=== PATIENT | female | born 1965 | race Caucasian/White ===

== ENCOUNTER 2023-02-24 07:15 | Outpatient (OUT) | payer BC, SELFPAY ==
--- NOTE | 2023-02-24 07:24 | MM_ITS ---
Patient: ADRIAN FRANCES Exam Date: 02/24/2023 : 1965 Gender:F Ordering : DR Hiwot Rich M.D. Admission #: [id number] Family : Order #: [id number] CLICK HERE TO VIEW EXAM RADIOLOGY REPORT PROCEDURE: MM TOMOSYNTHESIS SCREENING BI COMPARISON: MG MAMM SCREEN 3D STEPHY CAD, 01/21/2022. MAMMO POST BIOPSY RIGHT, 05/07/2020. MG MAMM SCREEN STEPHY W CAD, 04/27/2020. MG MAMM STEPHY SCRN W CAD DIG, 11/23/2013. INDICATIONS: Screening Calculator Name NCI Breast Cancer Risk Assessment Tool 5 Year Breast Cancer Risk 2.70% Lifetime Breast Cancer Risk 17.00% Personal Breast Cancer No Personal Ovarian Cancer No Treatments None Family Cancers Mother with breast cancer at age 64; Grandmother-maternal with breast cancer at age ~60. LOCATION: [facility] BREAST COMPOSITION: Scattered areas fibroglandular density. FINDINGS: DIAGNOSTIC CATEGORY 2--BENIGN FINDING: RIGHT BREAST: No significant suspicious finding. Stable small mass and adjacent biopsy marker clip within anterior lower-outer quadrant. Scattered benign-appearing calcifications are present. No significant change has occurred. LEFT BREAST: No significant suspicious finding. Scattered benign-appearing calcifications are present. No significant change has occurred. RECOMMENDATIONS: ROUTINE MAMMOGRAM AND CLINICAL EVALUATION IN 12 MONTHS. PLEASE NOTE: A NORMAL MAMMOGRAM DOES NOT EXCLUDE THE POSSIBILITY OF BREAST CANCER. A CLINICALLY SUSPICIOUS PALPABLE LUMP SHOULD BE BIOPSIED. Dictated by: Benjamin Malave M.D. on 02/25/2023 at 13:30 Approved by: Benjamin Malave M.D. on 02/25/2023 at 13:45
[2023-02-24 07:26] LABS: Basophils Percent Auto 0.6 % (0.2-2.0); Eosinophils Absolute Auto 0.1 10^3/uL (0.0-0.7); Eosinophils Percent Auto 2.5 % (0.9-7.0); Hematocrit 41.3 % (36.0-48.0); Hemoglobin 13.5 g/dL (12.0-16.0); Immature Granulocytes Abs Auto 0.01 10^3/uL (0.00-0.03); Immature Granulocytes Pct Auto 0.2 % (0.0-0.5); Lymphocytes Absolute Auto 1.5 10^3/uL (1.2-3.8); Lymphocytes Percent Auto 27.6 % (20.5-60.0); Mean Corpuscular HGB Conc 32.7 g/dL (29.9-35.2); Mean Corpuscular Hemoglobin 29.1 pg (26.7-34.0); Mean Platelet Volume 9.4 fL (9.5-13.5); Monocytes Absolute Auto 0.4 10^3/uL (0.3-0.8); Monocytes Percent Auto 7.4 % (1.7-12.0); Neutrophils Absolute Auto 3.3 10^3/uL (1.4-6.5); Neutrophils Percent Auto 61.7 % (43.0-75.0); Platelet Count 262 10^3/uL (150-450); Red Blood Count 4.64 10^6/uL (4.20-5.40); Red Cell Distribution Width 12.9 % (11.0-15.0); White Blood Count 5.3 10^3/uL (4.0-11.0)
[2023-02-24 07:45] LABS: Estimated Average Glucose 128 mg/dL; Glycohemoglobin A1C 6.1 % (4.5-6.2)
[2023-02-24 08:08] LABS: Alanine Aminotransferase 44 U/L (14-59); Albumin Level 3.4 g/dL (3.4-5.0); Alkaline Phosphatase 58 U/L (46-116); Anion Gap 8.5; Aspartate Amino Transferase 23 U/L (15-37); Bilirubin Total 0.3 mg/dL (0.2-1.0); Calcium 8.8 mg/dL (8.5-10.1); Carbon Dioxide 29.9 mmol/L (21.0-32.0); Chloride 104 mmol/L (98-107); Chol HDL Ratio 4.6; Cholesterol 194 mg/dL (<=200); Estimated GFR (African America >60 (>=60); Estimated GFR (Non-African Ame >60 (>=60); Globulin 3.4 g/dL; Glucose 133 mg/dL (74-106); HDL Cholesterol 42 mg/dL (40-60); Potassium 4.4 mmol/L (3.5-5.1); Sodium 138 mmol/L (136-145); Total Protein 6.8 g/dL (6.4-8.2); Triglycerides 196 mg/dL (<=150); VLDL CHOLESTEROL 39.2 mg/dL
== END 2023-02-24 07:16 | disposition home or self-care (01) ==
LOC: LAB 07:15
PROVIDERS: PCP Family Medicine; Visit Provider Family Medicine
DX: Z00.00 Encounter for general adult medical examination without abnormal findings (principal); Z12.31 Encounter for screening mammogram for malignant neoplasm of breast; Z80.3 Family history of malignant neoplasm of breast
CPT/HCPCS: 36415; 77063; 77067; 80053; 80061; 83036; 84443; 85025

== ENCOUNTER 2024-02-21 12:44 | Outpatient (OUT) | payer BC, SELFPAY ==
[2024-02-21] MEDS: ADACEL DIPH,PERTUSS(ACELL),TET VAC/PF 0.5 ML ADULT SYRINGE IM (12:49)
== END 2024-02-21 12:45 | disposition home or self-care (01) ==
LOC: VACCLI 12:45
PROVIDERS: PCP Family Medicine
DX: Z23 Encounter for immunization (principal)
CPT/HCPCS: 90715

== ENCOUNTER 2024-03-03 07:14 | Outpatient (OUT) | payer BC, SELFPAY ==
--- OUTSIDE RECORDS SUMMARY | 2024-03-03 07:17 | XMS_ITS | CCD ---
Author Organization [facility] Care Team Providers Care Information Security Director Name Role Phone DR BENJAMIN MALAVE Consulting Unavailable FISHER, DR HIWOT Licona Admitting Unavailable FISHER, DR HIWOT Licona Primary Care Unavailable FISHER, DR HIWOT Licona Attending Unavailable FISHER, DR HIWOT Licona Consulting Unavailable SHAILESH, KAROL Admitting Unavailable SHAILESH, KAROL Consulting Unavailable SHAILESHKAROL BARNES Attending Unavailable FISHER, DR HIWOT Licona Primary Care Unavailable RENU MARIE Admitting Unavailable RENU MARIE Consulting Unavailable RENU MARIE Attending Unavailable PHILLIP, DR HIWOT Licona Primary Care Unavailable SHAILESH, KAROL Admitting Unavailable SHAILESH, KAROL Consulting Unavailable SHAILESH, KAROL Attending Unavailable FISHER, DR HIWOT Licona Primary Care Unavailable Hiwot Fisher Unavailable Deb Starks Unavailable [phone] MD Hiwot Fisher Primary Care Provider [phone] MD Anatoliy Soto Attending Provider MD Hiwot Fisher Primary Care Provider [phone] MD Anatoliy Soto Attending Provider [phone] Allergies Allergy Classification Reported Allergen(s) Allergy Type Date of Onset Reaction(s) Facility (1 source) Latex Drug allergy (disorder) 12-04-[address] [facility] Repository (2 sources) Erythromycin Drug Allergy 10-28-19 14 Unknown [employer] Other (3 sources) erythromycin base Allergy to substance 01-27-20 24 [facility] (3 sources) band aid adhesive Propensity to adverse reactions 11-06-19 21 Redness of Skin [facility] Medications Current Medications Medication Drug Class(es) Dates Sig (Normalized) Sig (Original) [id number] 200 actuat albuterol 0.09 mg/actuat metered dose inhaler (3 sources) beta2-Adrenergic Agonist Start: 09-08-2019 Albuterol Sulfate (Ventolin Hfa) 90 mcg/actuation HFA aerosol inhaler Active 2 INH INHALATION every 6 to 8 hours September 08, 2019 1:00am 24 hr buPROPion hydrochloride 300 mg extended release oral tablet (6 sources) Aminoketone Start: 01-27-2024 take 300 mg by mouth once daily in the morning Bupropion Hcl Active 300 MG PO Every morning January 27, 2024 12:00am Start: 11-08-2020 take 150 mg by mouth once daily in the morning Bupropion Hcl Active 150 MG PO Every morning November 08, 2020 12:00am doxycycline hyclate 100 mg oral capsule (1 source) Tetracycline-class Drug Start: 02-28-2024 take 100 mg by mouth twice daily Doxycycline Hyclate Active 100 MG PO Twice daily 14 February 28, 2024 12:00am Fenofibrate (17 sources) Peroxisome Proliferator Receptor alpha Agonist Start: 02-25-2024 take 1 tablet by mouth once daily Fenofibrate Active 0 .ROUTE .COMPLEX February 25, 2024 9:41am TAKE 1 TABLET BY MOUTH DAILY Start: 12-24-2023 End: 02-25-2024 take 1 tablet by mouth once daily Fenofibrate Discontinued 0 .ROUTE .COMPLEX December 24, 2023 10:34am February 25, 2024 9:41am TAKE 1 TABLET BY MOUTH DAILY Start: 12-24-2023 take 1 tablet by rafiq th once daily Fenofibrate Active 0 .ROUTE .COMPLEX December 24, 2023 10:34am TAKE 1 TABLET BY MOUTH DAILY Start: 09-08-2019 End: 12-24-2023 take 160 mg by mouth once daily Fenofibrate Discontinu ed 160 MG PO Daily October 21, 2023 3:18pm December 24, 2023 10:34am FLUoxetine 20 mg oral capsule (13 sources) Serotonin Reuptake Inhibitor Start: 11-08-2020 take 60 mg by mouth once daily Fluoxetine Active 60 MG PO Daily November 08, 2020 12:00am Start: 09-08-2019 End: 11-08-2020 take 1 capsule by mouth once daily Fluoxetine (Prozac) 40 mg Capsule Discontinued 40 MG PO Daily September 08, 2019 1:00am November 08, 2020 10:56am take 1 capsule by mo [facility] every twenty-four hours PROzac 20 MG 1 capsule in the morning Orally Once a day Active Lisinopril (17 sources) Angiotensin Converting Enzyme Inhibitor Start: 02-25-2024 take 1 tablet by mouth once daily Lisinopril Active 0 .ROUTE .COMPLEX February 25, 2024 9:41am TAKE 1 TABLET BY MOUTH DAILY Start: 12-24-2023 End: 02-25-2024 take 1 tablet by mouth once daily Lisinopril Discontinued 0 .ROUTE .COMPLEX December 24, 2023 10:34am February 25, 2024 9:41am TAKE 1 TABLET BY MOUTH DAILY Start: 12-24-2023 take 1 tablet by rafiq th once daily Lisinopril Active 0 .ROUTE .COMPLEX December 24, 2023 10:34am TAKE 1 TABLET BY MOUTH DAILY Start: 09-08-2019 End: 12-24-2023 take 40 mg by mouth once daily Lisinopril Discontinued 40 MG PO Daily October 21, 2023 3:18pm December 24, 2023 10:34am take 2 tablets by mo [facility] every twenty-four hours Lisinopril 20 MG 2 tablets Orally daily for 90 days Active 24 hr metoprolol succinate 50 mg extended release oral tablet (15 sources) beta-Adrenergic Marichuy Start: 02-25-2024 take 1 tablet by mouth once daily Metoprolol Succinate Active 0 .ROUTE .COMPLEX February 25, 2024 9:41am TAKE 1 TABLET BY MOUTH DAILY Start: 09-08-2019 End: 02-25-2024 take 50 mg by mouth once daily Metoprolol Succinate Di scontinued 50 MG PO Daily October 04, 2023 4:41pm February 25, 2024 9:41am take 1 tablet by rafiq th once daily Metoprolol Succinate 50 MG 1 Tablet orally Daily Active Multivitamin preparation (9 sources) Start: 02-22-2024 take 1 tablet by mouth once daily Multivitamin Active 1 TAB PO Daily February 22, 2024 12:00am Multivitamin Act gracia omeprazole 20 mg delayed release oral capsule (11 sources) Proton Pump Inhibitor Start: 11-02-2022 take 1 capsule by mouth once daily Omeprazole 20 MG 1 capsule 30 minutes before morning meal Orally Once a day for 90 days Oct, Active take 2 tablets by mouth once danielle ly PriLOSEC OTC 20 MG 2 tablets Orally Once a day Active Omeprazole Magnesium (Prilosec Otc) 20 mg Tablet,Delayed Release (Dr/Ec) (3 sources) Start: 09-08-2019 take 1 tablet by mouth once daily Omeprazole Magnesium (Prilosec Otc) 20 mg Tablet,Delayed Release (Dr/Ec) Active 20 MG PO Daily September 08, 2019 1:00am predniSONE 20 mg oral tablet (10 sources) Start: 08-06-2022 take 2 tablets by mouth every twenty-four hours predniSONE 20 MG 2 tablets Orally Once a day for 5 days Jul, Active Start: 09-08-2019 End: 11-05-2020 take 50 mg by mouth once daily Prednisone Discontinued 50 MG PO Daily 5 5 September 08, 2019 1:00am November 05, 2020 2:37pm {20 (nirmatrelvir 150 MG Oral Tablet) / 10 (ritonavir 100 MG Oral Tablet) } Pack [Paxlovid 5-Day] (2 sources) Start: 03-31-2023 take 3 tablets by mouth every twelve hours Paxlovid (300/100) 20 x 150 MG & 10 x 100MG 3 tablets Orally Twice a day for 5 days Mar, Active Completed/Discontinued Medications Medication Drug Class(es) Dates Sig (Normalized) Sig (Original) amoxicillin 875 mg / clavulanate 125 mg oral tablet (13 sources) Penicillin-class Antibacterial Start: 01-27-2024 End: 02-28-2024 take 1 tablet by mouth twice daily Amoxicillin-Pot Clavulanate Discontinued 1 TAB PO Twice daily January 27, 2024 12:00am February 28, 2024 5:16pm Start: 08-06-2022 take 1 tablet by rafiq th every twelve hours Amoxicillin-Pot Clavulanate 875-125 MG 1 tablet Orally every 12 hrs for 10 day(s) Jul, Not-Taking Start: 09-08-2019 End: 11-05-2020 take 1 tablet by mouth twice daily Amoxicillin-Pot Clavulanate (Augmentin) 875-125 mg tablet Discontinued 1 TAB PO Twice daily September 08, 2019 1:00am November 05, 2020 2:36pm ARIPiprazole 5 mg oral tablet (3 sources) Atypical Antipsychotic Start: 11-08-2020 End: 01-27-2024 take 5 mg by mouth once daily at bedtime Aripiprazole Discontinued 5 MG PO Daily at bedtime 30 November 08, 2020 12:00am January 27, 2024 2:19pm brexpiprazole 2 mg oral tablet (3 sources) Atypical Antipsychotic Start: 11-05-2020 End: 11-08-2020 take 1 tablet by mouth once daily Brexpiprazole (Rexulti) 2 mg Tablet Discontinued 2 MG PO Daily November 05, 2020 12:00am November 08, 2020 10:56am DULoxetine 60 mg delayed release oral capsule (12 sources) Serotonin and Norepinephrine Reuptake Inhibitor Start: 02-22-2024 End: 02-28-2024 take 1 capsule by mouth once daily Duloxetine (Cymbalta) 60 mg capsule,delayed release(DR/EC) Discontinued 60 MG PO Daily February 22, 2024 12:00am February 28, 2024 5:16pm FreeTextSi capsule Orally Once a day; Note: Source Status: Taking; Provider: Phillip Mi ( ) Start: 09-08-2019 End: 11-08-2020 take 1 capsule by mouth once daily Duloxetine (Cymbalta) 60 mg Capsule,Delayed Release(Dr/Ec) Discontinued 60 MG PO Daily September 08, 2019 1:00am November 08, 2020 10:56am 12 hr guaiFENesin 600 mg extended release oral tablet (7 sources) Start: 09-15-2019 take 1 tablet by mouth every twelve hours Mucinex 600 MG 1 tablet as needed Orally every 12 hrs for 10 days Aug, Not-Taking hydrOXYzine pamoate 50 mg oral capsule (3 sources) Antihistamine Start: 11-08-2020 End: 01-27-2024 take 50 mg by mouth every six hours Hydroxyzine Pamoate Discontinued 50 MG PO Q6H 40 November 08, 2020 12:00am January 27, 2024 2:21pm Methylprednisolone (6 sources) Corticosteroid Start: 01-27-2024 End: 02-28-2024 Methylprednisolone Discontinued 0 PO per package directions January 27, 2024 12:00am February 28, 2024 5:16pm PO PER PKG DIR for 6 days Start: 01-27-2024 Methylpredniso lone Active 0 PO per package directions January 27, 2024 12:00am PO PER PKG DIR for 6 days Start: 09-08-2019 End: 11-05-2020 Methylprednisolone Discontin ued 0 .ROUTE .COMPLEX September 08, 2019 1:00am November 05, 2020 2:37pm on day 3 as of 09/08/2019 traZODone hydrochloride 50 mg oral tablet (3 sources) Serotonin Reuptake Inhibitor Start: 11-08-2020 End: 01-27-2024 take 50 mg by mouth once daily at bedtime Trazodone Discontinued 50 MG PO Daily at bedtime November 08, 2020 12:00am January 27, 2024 2:20pm Problems Active Problems Problem Classification Problem Date Documented Date Episodic/Chronic Asthma (20 sources) Exacerbation of moderate persistent asthma; Translations: [Moderate persistent asthma with (acute) exacerbation] Chronic Esophageal disorders (4 sources) Gastroesophageal reflux disease without esophagitis; Translations: [Gastro-esophageal reflux disease without esophagitis] Chronic Mood disorders (3 sources) Major depressive disorder; Translations: [Major depressive disorder, single episode, unspecified] 11-05-2020 Chronic Nonmalignant breast conditions (3 sources) Breast lump; Translations: [Unspecified lump in the right breast, unspecified quadrant] 05-07-2020 Episodic Other screening for suspected conditions (not mental disorders or infectious disease) (5 sources) Encounter for screening mammogram for malignant neoplasm of breast; Translations: [Patient encounter status] Onset: 01-26-2022 02-24-2024 Episodic Other upper respiratory infections (14 sources) Sinusitis; Translations: [Chronic sinusitis, unspecified] Chronic Other upper respiratory infections (3 sources) Upper respiratory infection; Translations: [Acute upper respiratory infection, unspecified] 09-08-2019 Episodic Otitis media and related conditions (1 source) Unspecified nonsuppurative otitis media, bilateral Episodic Residual codes; unclassified (2 sources) Family history of malignant neoplasm of breast; Translations: [Family history of malignant neoplasm of breast] Onset: 01-26-2022 02-23-2024 Episodic Residual codes; unclassified (1 source) Family history of breast cancer; Translations: [Family history of malignant neoplasm of breast] 02-24-2024 Episodic Skin and subcutaneous tissue infections (1 source) Cellulitis, unspecified; Translations: [Cellulitis and abscess of unspecified sites] 02-28-2024 Episodic Unclassified (3 sources) CONTACT W/AND (SUSP) EXPOS COVID-19; Translations: [CONTACT W/AND (SUSP) EXPOS COVID-19] Onset: 07-24-2021 Past or Other Problems Problem Classification Problem Date Documented Da te Episodic/Chronic Immunizations and screening for infectious disease (4 sources) Encounter for immunization; Translations: [ENCOUNTER FOR IMMUNIZATION] Onset: 05-14-2021 Episodic Unclassified (1 source) CONTACT W/AND (SUSP) EXPOS COVID-19; Translations: [CONTACT W/AND (SUSP) EXPOS COVID-19] Onset: 07-21-2021 Viral infection (2 sources) COVID-19 Results Test Name Value Interpretation Reference Range Facility CBC AUTO DIFFon 01-21-2022 BASO # 0.0 103/ul Normal 0.0-0.1 [facility] Comment on above: Performed By: #### C BC ####[facility] [id number] [place], [place] [address]Dr. Roz Barnhart Basophils/100 WBC (Bld) 0.8 % Normal 0.2-2.[address] [facility] Comment on above: Performed By: #### C BC ####[facility] [address] [place], [place] [address]Dr. Roz Barnhart EO # 0.1 103/ul Normal 0.0-0.[address] [facility] Comment on above: Performed By: #### C BC ####[facility] [address] [place], [place] [address]Dr. Roz Barnhart Eosinophils/100 WBC (Bld) 2.5 % Normal 0.9-7.[address] [facility] Comment on above: Performed By: #### C BC ####[facility] [address] [place], [place] [address]Dr. Roz Barnhart Erythrocyte distribution width (RBC) [Ratio] 12.2 % Normal 11.0-15.[address] [facility] Comment on above: Performed By: #### C BC ####[facility] [address] [place] [address]Dr. Roz Barnhart Hematocrit (Bld) [Volume fraction] 43.2 % Normal 36.0-48.0 [facility] Comment on above: Performed By: #### C BC ####[facility] [address] [place] [address]Dr. Roz Obey Hemoglobin (Bld) [Mass/Vol] 13.9 g/dL Normal 12.0-16.0 [facility] Comment on above: Performed By: #### C BC ####[facility] [address] [place], [place] [address]Dr. Piamayi Barnhart IG # 0.01 10e3/ul Normal 0.00-0.03 [facility] Comment on above: Performed By: #### C BC ####[facility] [address] [place], [place] [address]Dr. Roz Barnhart IG % 0.2 % Normal 0.0-0.5 [facility] Comment on above: Performed By: #### C BC ####[facility] [address] [place], [place] [address]Dr. Piamayi Barnhart LYMPH # 1.5 103/ul Normal 1.2-3.[address] [facility] Comment on above: Performed By: #### C BC ####[facility] [address] [place], [place] [address]Dr. Roz Barnhart Lymphocytes/100 WBC (Bld) 29.8 % Normal 20.5-60.[address] [facility] Comment on above: Performed By: #### C BC ####[facility] [address] [place], [place] [address]Dr. Roz Barnhart MANUAL DIFF REQ NO Normal [facility] Comment on above: Performed By: #### C BC ####[facility] [address] [place], [place] [address]Dr. Roz Barnhart MCH (RBC) [Entitic mass] 29.1 pg Normal 26.7-34.[address] [facility] Comment on above: Performed By: #### C BC ####[facility] [address] [place] [id number]. Roz Obey MCHC (RBC) [Mass/Vol] 32.2 g/dL Normal 29.9-35.[address] [facility] Comment on above: Performed By: #### C BC ####[facility] [address] [place] [id number]. Roz Barnhart MCV (RBC) [Entitic vol] 90.6 fL Normal 81.0-99.[address] [facility] Comment on above: Performed By: #### C BC ####[facility] [address] [place], [place] [address]Dr. Roz Barnhart MONO # 0.4 103/ul Normal 0.3-0.[address] [facility] Comment on above: Performed By: #### C BC ####[facility] [address] [place], [place] [address]Dr. Roz Barnhart Monocytes/100 WBC (Bld) 6.8 % Normal 1.7-12.[address] [facility] Comment on above: Performed By: #### C BC ####[facility] [address] [place], [place] [address]Dr. Roz Barnhart NEUT # 3.1 103/ul Normal 1.4-6.[address] [facility] Comment on above: Performed By: #### C BC ####[facility] [address] [place], [place] [address]Dr. Roz Barnhart Neutrophils/100 WBC (Bld) 59.9 % Normal 43.0-75.[address] [facility] Comment on above: Performed By: #### C BC ####[facility] [address] [place], [place] [address]Dr. Roz Barnhart Platelet mean volume (Bld) [Entitic vol] 9.8 fL Normal 9.5-13.[address] [facility] Comment on above: Performed By: #### C BC ####[facility] [address] [place], [place] [address]Dr. Roz Barnhart PLT 321 103/ul Normal 150-[address] [facility] Comment on above: Performed By: #### C BC ####[facility] [address] [place], [place] [address]UmKenney Barnhart RBC 4.77 106/ul Normal 4.20-5.40 [facility] Comment on above: Performed By: #### C BC ####[facility] [address] [place], [place] [address]IgKenney Barnhart WBC 5.1 103/ul Normal 4.0-11.0 [facility] Comment on above: Performed By: #### C BC ####[facility] [address] [place], [place] [address]Dr. Roz Barnhart GLYCOHEMOGLOBIN A1Con 2021 ADA RECOMMENDATION SEE BELOW Normal [facility] Comment on above: Result Comment: ADA RECOMMENDED LIMIT 4.0 - 6.0 ADA THERAPEUTIC TARGET < 7.0 ACTION SUGGESTED > 7.0 Performed By: #### A 1C #### [facility] [address] [address] [address] Roz Barnhart Glucose [Mass/Vol] 120 mg/dL Critically high 74-106 [facility] Comment on above: Performed By: #### A 1C #### [facility] [address] [address] [address] Roz Barnhart Performed By: #### C MP, LIPID, TSH #### [facility] [address] [address] [address] Roz Barnhart HbA1c (Bld) [Mass fraction] 5.8 % Normal 4.5-6.2 [facility] Comment on above: Performed By: #### A 1C #### [facility] [address] [address] [address] Roz Barnhart LIPID PROFILEon 01-21-2022 CHOL-HDL RATIO NORM SEE BELOW Normal [facility] Comment on above: Result Comment: 3.3 - 4.4 LOW RISK 4.4 - 7.1 AVERAGE RISK 7.1 - 11.0 MODERATE RISK >11.0 HIGH RISK Performed By: #### C MP, LIPID, TSH #### [facility] [address] [address] [address] Roz Barnhart Cholesterol [Mass/Vol] 230 mg/dL Critically high <=200 [facility] Comment on above: Performed By: #### C MP, LIPID, TSH #### [facility] [address] [address] [address] Roz Barnhart Cholesterol in HDL [Mass/Vol] 40 mg/dL Normal 40-60 [facility] Comment on above: Performed By: #### C MP, LIPID, TSH #### [facility] [address] [address] [address] Roz Barnhart Cholesterol in LDL [Mass/Vol] 148.4 mg/dL Normal [facility] Comment on above: Performed By: #### C MP, LIPID, TSH #### [facility] [address] [address] [address] Roz Barnhart Cholesterol.total/Ch olesterol in HDL [Mass ratio] 5.8 {ratio} Normal [facility] Comment on above: Performed By: #### C MP, LIPID, TSH #### [facility] [address] [address] [address] Roz Barnhart HDL NORMAL > or = 60 mg/dl - LO W CARDIOVASCULAR RISK <40 mg/dl - HIGH CARDIOVASCULAR RISK Normal [facility] Comment on above: Performed By: #### C MP, LIPID, TSH #### [facility] [address] [address] [address] Roz Barnhart LDL CALC NORMAL SEE BELOW Normal [facility] Comment on above: Result Comment: <100 mg/dl OPTIMAL 100 - 129 mg/dl NEAR OR ABOVE OPTIMAL 130 - 159 mg/dl BORDERLINE HIGH 160 - 189 mg/dl HIGH >190 mg/dl VERY HIGH Performed By: #### C MP, LIPID, TSH #### [facility] [address] [address] [address] Roz Barnhart Triglyceride [Mass/Vol] 208 mg/dL Critically high <=[address] [facility] Comment on above: Performed By: #### C MP, LIPID, TSH #### [facility] [address] [address] [address] Roz Barnhart VLDL CALC 41.6 mg/dL Normal [facility] Comment on above: Performed By: #### C MP, LIPID, TSH #### [facility] [address] [address] [address] Roz Barnhart MG MAMM SCREEN 3D STEPHY CADon 01-21-2022 MG MAMM SCREEN 3D STEPHY CAD Patient: EVELIA FRANCES Exam Date: 01/21/2022 : 1965 Gender:F Ordering : DR HIWOT FISHER M.D. Admission #: [id number] Family : Order #: [id number] CLICK HERE TO VIEW EXAM RADIOLOGY REPORT PROCEDURE: MAMMOGRAM SCREENING 3D BILATERAL CAD COMPARISON: MAMMO POST BIOPSY RIGHT, 05/07/2020. MG MAMM SCREEN STEPHY W CAD, 04/27/2020. INDICATIONS: Screening mammography Calculator Name NCI Breast Cancer Risk Assessment Tool 5 Year Breast Cancer Risk 2.60% Lifetime Breast Cancer Risk 17.30% Personal Breast Cancer No Personal Ovarian Cancer No Treatments None Family Cancers Mother with breast cancer at age 64; Grandmother-maternal with breast cancer at age 60. LOCATION: [facility] BREAST COMPOSITION: Scattered areas fibroglandular density. FINDINGS: DIAGNOSTIC CATEGORY 2--BENIGN FINDING: RIGHT BREAST: No significant suspicious finding. Stable benign-appearing nodules are present. Scattered benign-appearing calcifications are present. No suspicious change has occurred. LEFT BREAST: No significant suspicious finding. Scattered benign-appearing calcifications are present. No significant change has occurred. RECOMMENDATIONS: ROUTINE MAMMOGRAM AND CLINICAL EVALUATION IN 12 MONTHS. PLEASE NOTE: A NORMAL MAMMOGRAM DOES NOT EXCLUDE THE POSSIBILITY OF BREAST CANCER. A CLINICALLY SUSPICIOUS PALPABLE LUMP SHOULD BE BIOPSIED. Dictated by: Benjamin Malave M.D. on 01/22/2022 at 14:20 Approved by: Benjamin Malave M.D. on 01/22/2022 at 14:[address] [facility] PROF 14(COMP METB)on 022 Albumin [Mass/Vol] 3.8 g/dL Normal 3.4-5.0 [facility] Comment on above: Performed By: #### C MP, LIPID, TSH #### [facility] [address] [place], [place] [address] Dr. Roz Barnhart Albumin/Globulin [Mass ratio] 1.1 {ratio} Normal [facility] Comment on above: Performed By: #### C MP, LIPID, TSH #### [facility] [address] [address] [address] Roz Barnhart ALP [Catalytic activity/Vol] 57 U/L Normal 46-116 [facility] Comment on above: Performed By: #### C MP, LIPID, TSH #### [facility] [address] [address] [address] Roz Barnhart ALT [Catalytic activity/Vol] 42 U/L Normal 14-59 [facility] Comment on above: Performed By: #### C MP, LIPID, TSH #### [facility] [address] [address] [address] Roz Barnhart Anion gap [Moles/Vol] 13.6 mmol/L Normal [facility] Comment on above: Performed By: #### C MP, LIPID, TSH #### [facility] [address] [address] [address] Roz Barnhart AST [Catalytic activity/Vol] 21 U/L Normal 15-37 [facility] Comment on above: Performed By: #### C MP, LIPID, TSH #### [facility] [address] [address] [address] Roz Barnhart Bilirubin [Mass/Vol] 0.4 mg/dL Normal 0.2-1.0 [facility] Comment on above: Performed By: #### C MP, LIPID, TSH #### [facility] [address] [address] [address] Roz Barnhart Calcium [Mass/Vol] 9.2 mg/dL Normal 8.5-10.1 [facility] Comment on above: Performed By: #### C MP, LIPID, TSH #### [facility] [address] [address] [address] Roz Barnhart Chloride [Moles/Vol] 104 mmol/L Normal 98-107 [facility] Comment on above: Performed By: #### C MP, LIPID, TSH #### [facility] [address] [address] [address] Roz Barnhart CO2 [Moles/Vol] 26.7 mmol/L Normal 21.0-32.0 [facility] Comment on above: Performed By: #### C MP, LIPID, TSH #### [facility] [address] [address] [address] Roz Barnhart Creatinine [Mass/Vol] 0.67 mg/dL Normal 0.55-1.02 [facility] Comment on above: Performed By: #### C MP, LIPID, TSH #### [facility] [address] [place] [address] Dr. Roz Barnhart EGFR-AF MAURITIAN >60 Normal >=60 [facility] Comment on above: Performed By: #### C MP, LIPID, TSH #### [facility] [address] [place] [address] Dr. Roz Barnhart EGFR-NON AF MAURITIAN >60 Normal >=60 [facility] Comment on above: Performed By: #### C MP, LIPID, TSH #### [facility] [address] [place] [address] Dr. Roz Barnhart Globulin (S) [Mass/Vol] 3.4 g/dL Normal [facility] Comment on above: Performed By: #### C MP, LIPID, TSH #### [facility] [address] [place] [address] Dr. Roz Barnhart Potassium [Moles/Vol] 4.3 mmol/L Normal 3.5-5.1 [facility] Comment on above: Performed By: #### C MP, LIPID, TSH #### [facility] [address] [place] [address] Dr. Roz Barnhart Protein [Mass/Vol] 7.2 g/dL Normal 6.4-8.2 [facility] Comment on above: Performed By: #### C MP, LIPID, TSH #### [facility] [address] [place] [address] Dr. Roz Barnhart Sodium [Moles/Vol] 140 mmol/L Normal 136-145 [facility] Comment on above: Performed By: #### C MP, LIPID, TSH #### [facility] [address] [place] [address] Dr. Roz Barnhart Urea nitrogen [Mass/Vol] 11.0 mg/dL Normal 7.0-18.0 [facility] Comment on above: Performed By: #### C MP, LIPID, TSH #### [facility] [address] [address] [address] Roz Barnhart Urea nitrogen/Creatinine [Mass ratio] 16.4 mg/mg Normal [facility] Comment on above: Performed By: #### C MP, LIPID, TSH #### [facility] [address] [address] [address] Roz Barnhart TSHon 01-21-2022 TSH 1.738 uIU/mL Normal 0.358-3.740 [facility] Comment on above: Performed By: #### C MP, LIPID, TSH #### [facility] [address] [place] [address] Dr. Roz Barnhart Covid-19 PCR ([facility])on SARS-CoV-2 (COVID-19) RNA MARICRUZ+probe Ql (Unsp spec) Not detected Normal NOT DETECTED [facility] Comment on above: Result Comment: This test is not yet approved or cleared by the [place] FDA. When there are no FDA-approved or cleared tests available, and other criteria are met, FDA can make tests available under an emergency access mechanism called an Emergency Use Authorization (EUA). The EUA for this test is supported by the [employer] of Health and Human Service's (HHS's) declaration that circumstances exist to justify the emergency use of in vitro diagnostics for the detection and/or diagnosis of the virus that causes COVID-19. This EUA will remain in effect (meaning this test can be used) for the duration of the COVID-19 declaration justifying emergency of IVDs, unless it is terminated or revoked by FDA (after which the test may no longer be used). When diagnostic testing is negative, the possibility of a false negative should be considered in the context of a patient's recent exposures and the presence of clinical signs and symptoms consistent with SARS-CoV-2. Performed By: #### C VDTBH #### [facility] [address] [place] [address] Dr. Roz Barnhart QUANTIFERON TB GOLD PLUS (NO N-INC)on 05-10-2021 Comment Incubation performed. Normal [facility] Comment on above: Performed By: #### Q NTTBG #### [facility] [address] [place] [address] Dr. Roz Barnhart Criteria Comment Normal [facility] Comment on above: Result Comment: The QuantiFERON-TB Gold Plus result is determined by subtracting the Nil value from either TB antigen (Ag) tube. The mitogen tube serves as a control for the test. Performed By: #### Q NTTBG #### [facility] [address] [place] [address] Dr. Roz Barnhart Mitogen Value >10.00 Normal [facility] Comment on above: Performed By: #### Q NTTBG #### [facility] [address] [place] [address] Dr. Roz Barnhart Nill Value 0.00 IU/mL Normal [facility] Comment on above: Performed By: #### Q NTTBG #### [facility] [address] [place] [address] Dr. Roz Barnhart Quantiferon Gold Plus Negative Normal Negative [facility] Comment on above: Result Comment: Chem iluminescence immunoassay methodology Performed By: #### Q NTTBG #### [facility] [address] [place] [address] Dr. Roz Barnhart TB1 Ag Value 0.01 IU/mL Normal [facility] Comment on above: Performed By: #### Q NTTBG #### [facility] [address] [place] [address] Dr. Roz Barnhart TB2 Ag Value 0.01 IU/mL Normal [facility] Comment on above: Performed By: #### Q NTTBG #### [facility] [address] [place] [address] Dr. Roz Barnhart HEPATITIS B SURFACE ANTIBODY , QUANTon 05-07-2021 Hepatitis B Surf AB Quant <3.1 Critically low Immunity>9.9 [facility] Comment on above: Result Comment: Stat us of Immunity Anti-HBs Level Inconsistent with Immunity 0.0 - 9.9 Consistent with Immunity >9.9 Performed By: #### H EPBSRF #### [facility] [address] [place] [address] Dr. Roz Barnhart MMR IMMUNITYon 05-07-2021 Mumps Abs, IgG 11.8 AU/mL Normal Immune >10.9 [facility] Comment on above: Result Comment: Nega tive <9.0 Equivocal 9.0 - 10.9 Positive >10.9 A positive result generally indicates past exposure to Mumps virus or previous vaccination. Performed By: #### M MRIMMU #### [facility] [address] [place] [address] Dr. Roz Barnhart Rubella Antibodies, IgG 8.56 index Normal Immune >0.99 [facility] Comment on above: Result Comment: Non- immune <0.90 Equivocal 0.90 - 0.99 Immune >0.99 Performed By: #### M MRIMMU #### [facility] [address] [place] [address] Dr. Roz Barnhart Rubeola Ab, IgG >300.0 Normal Immune >16.4 [facility] Comment on above: Result Comment: Nega tive <13.5 Equivocal 13.5 - 16.4 Positive >16.4 Presence of antibodies to Rubeola is presumptive evidence of immunity except when acute infection is suspected. Performed By: #### M MRIMMU #### [facility] [address] [place] [address] Dr. Roz Barnhart VARICELLA IGG ABon Varicella Zoster IgG >4000 Normal Immune >[address] [facility] Comment on above: Result Comment: Nega tive <135 Equivocal 135 - 165 Positive >165 A positive result generally indicates exposure to the pathogen or administration of specific immunoglobulins, but it is not indication of active infection or stage of disease. Performed By: #### V ARCEL #### [facility] [address] [place] [address] Dr. Roz Barnhart XR thoracic spine 3V*on 03-19 XR thoracic spine 3V* [facility] [place] [address] [place] [address] XRay Report Signed Patient: Evelia Frances MR#: [id number] : 1965 Acct:[id number] Age/Sex: 56 / F ADM Date: 04/02/21 Loc: XD Room: Type: [facility] Attending Dr: Hiwot Fisher MD Ordering Provider: Hiwot Fisher MD Date of Service: 04/02/21 XR/XR thoracic spine 3V*: M54.9 Copies to: Hiwot Fisher MD XR thoracic spine 3V* 04/02/2021 12:05 PM SIGNS AND SYMPTOMS: Lower thoracic pain PROTOCOLS: Frontal and lateral radiograph of the thoracic spine COMPARISON: None FINDINGS: The bones are in anatomic alignment with preservation of vertebral body heights. There is anterior and lateral osteophyte formation throughout the mid and lower thoracic spine. There is accompanying mild disc height loss. No evidence of fracture or bony destructive lesion. XR/XR thoracic spine 3V* IMPRESSION: No fracture or subluxation. Mild degenerative changes are noted in the mid and lower thoracic spine. Impression dictated by: Jose Manuel Andino M.D.04/02/2021 1:50 PM Dictation Location: [address] [address] Transcribed By: [facility] 04/02/21 1350 Dictated By: Jose Manuel Andino II, MD 04/02/21 1349 Signed By: 04/02/21 1350 [facility] EBS A1C with Estimated Ave Jeffy franco 02-24-2021 Glucose [Mass/Vol] 126 mg/dL [facility] Comment on above: Result Comment: PERF ORMED BY: [place] [address] PATHOLOGIST LUMBER LOADER NICKOLAS ARTEAGA M.D. Performed By: #### F SH #### [place] [address] [place] #### EST, #### [facility] , HbA1c (Bld) [Mass fraction] 6.0 % High 4.3-5.6 [facility] Comment on above: Result Comment: Incr eased risk for diabetes: 5.7 - 6.4 diabetes: >6.4 glycemic control for adults with diabetes: <7.0 Performed By: #### F SH #### [address] #### EST, LH #### [facility] , Employee Comp Metabolic Pane teresita 02-24-2021 Albumin [Mass/Vol] 3.7 g/dL Normal 3.2-5.5 [facility] Comment on above: Performed By: #### F SH #### [address] #### EST, LH #### [facility] , Albumin/Globulin [Mass ratio] 1.4 {ratio} Normal [facility] Comment on above: Performed By: #### F SH #### [place] [address] [place] #### EST, LH #### [facility] , ALP [Catalytic activity/Vol] 62 U/L Normal 32-92 [facility] Comment on above: Performed By: #### F SH #### [place] [address] [place] #### EST, LH #### [facility] , ALT [Catalytic activity/Vol] 29 U/L Normal 10-60 [facility] Comment on above: Performed By: #### F SH #### [place] [address] [place] #### EST, LH #### [facility] , AST [Catalytic activity/Vol] 18 U/L Normal 10-42 [facility] Comment on above: Performed By: #### F SH #### [place] [address] [place] #### EST, LH #### [facility] , Bilirubin [Mass/Vol] 0.5 mg/dL Normal 0.3-1.2 [facility] Comment on above: Performed By: #### F SH #### [facility] [address] [place] [address] [place] #### EST, LH #### [facility] , Calcium [Mass/Vol] 9.2 mg/dL Normal 8.2-10.2 [facility] Comment on above: Performed By: #### F SH #### [facility] [address] [place] [address] [place] #### EST, LH #### [facility] , Chloride [Moles/Vol] 107 mmol/L Normal 95-114 [facility] Comment on above: Performed By: #### F SH #### [facility] [address] [place] [address] [place] #### EST, LH #### [facility] , CO2 [Moles/Vol] 24.0 mmol/L Normal 22.0-30.0 [facility] Comment on above: Performed By: #### F SH #### [facility] [address] [place] [address] [place] #### EST, LH #### [facility] , Creatinine [Mass/Vol] 0.52 mg/dL Normal 0.44-1.03 [facility] Comment on above: Performed By: #### F SH #### [facility] [address] [place] [address] [place] #### EST, LH #### [facility] , Creatinine Clr Calc Pharmacy 178.44 [facility] Comment on above: Performed By: #### F SH #### [facility] [address] [place] [address] [place] #### EST, LH #### [facility] , Estimated GFR ( Allie > 60 Normal [facility] Comment on above: Result Comment: GFR estimated reference range: According to KDOQI guidelines, <60 ml/min/1.73m2 is sufficient to diagnose a patient with chronic kidney disease. Performed By: #### F SH #### [facility] [address] [place] [address] [place] #### EST, LH #### [facility] , Estimated GFR (Non- Am > 60 Normal [facility] Comment on above: Performed By: #### F SH #### [facility] [address] [place] [address] [place] #### EST, LH #### [facility] , Globulin (S) [Mass/Vol] 2.6 g/dL Normal [facility] Comment on above: Performed By: #### F SH #### [facility] [address] [place] [address] [place] #### EST, LH #### [facility] , Glucose [Mass/Vol] 104 mg/dL High 70-100 [facility] Comment on above: Result Comment: ADA recommended reference range Performed By: #### F SH #### [facility] [address] [place] [address] [place] #### EST, LH #### [facility] , Potassium [Moles/Vol] 4.2 mmol/L Normal 3.5-5.1 [facility] Comment on above: Performed By: #### F SH #### [facility] [address] [place] [address] [place] #### EST, LH #### [facility] , Protein [Mass/Vol] 6.3 g/dL Normal 6.1-7.9 [facility] Comment on above: Performed By: #### F SH #### [facility] [address] [place] [address] [place] #### EST, LH #### [facility] , Sodium [Moles/Vol] 141 mmol/L Normal 136-146 [facility] Comment on above: Performed By: #### F SH #### [facility] [address] [place] [address] [place] #### EST, LH #### [facility] , Urea nitrogen [Mass/Vol] 8 mg/dL Low 9- [facility] Comment on above: Performed By: #### F SH #### [facility] [address] [place] [address] #### EST, LH #### [facility] , Employee Complete Blood Coun ton 02-24-2021 Basophils (Bld) [#/Vol] 0.0 10*3/uL Normal 0.0-0.2 [facility] Comment on above: Result Comment: PERF ORMED BY: [place] [address] PATHOLOGIST LUMBER LOADER NICKOLAS ARTEAGA M.D. Performed By: #### F SH #### [address] #### EST, LH #### [facility] , Basophils/100 WBC (Bld) 0.7 % Normal . [facility] Comment on above: Performed By: #### F SH #### [address] #### EST, LH #### [facility] , Eosinophils (Bld) [#/Vol] 0.1 10*3/uL Normal 0.0-0.45 [facility] Comment on above: Performed By: #### F SH #### [facility] [address] [place] [address] [place] #### EST, LH #### [facility] , Eosinophils/100 WBC (Bld) 2.0 % Normal . [facility] Comment on above: Performed By: #### F SH #### [facility] [address] [place] [address] [place] #### EST, LH #### [facility] , Erythrocyte distribution width (RBC) [Ratio] 13.0 % Normal 11.9-15.3 [facility] Comment on above: Performed By: #### F SH #### [place] [address] [place] #### EST, LH #### [facility] , Hematocrit (Bld) [Volume fraction] 41.1 % Normal 34.0-46.4 [facility] Comment on above: Performed By: #### F SH #### [place] [address] [place] #### EST, LH #### [facility] , Hemoglobin (Bld) [Mass/Vol] 13.8 g/dL Normal 11.8-15.4 [facility] Comment on above: Performed By: #### F SH #### [place] [address] [place] #### EST, LH #### [facility] , Lymphocytes (Bld) [#/Vol] 1.6 10*3/uL Normal 1.00-4.8 [facility] Comment on above: Performed By: #### F SH #### [place] [address] [place] #### EST, LH #### [facility] , Lymphocytes/100 WBC (Bld) 26.8 % Normal . [facility] Comment on above: Performed By: #### F SH #### [place] [address] [place] #### EST, LH #### [facility] , MCH (RBC) [Entitic mass] 30.0 pg Normal 24.7-34.3 [facility] Comment on above: Performed By: #### F SH #### [place] [address] [place] #### EST, LH #### [facility] , MCV (RBC) [Entitic vol] 89.1 fL Normal 80-100 [facility] Comment on above: Performed By: #### F SH #### [place] [address] [place] #### EST, LH #### [facility] , Mean Corpuscular HGB Conc 33.6 g/dL Normal 32.0-35.0 [facility] Comment on above: Performed By: #### F SH #### [facility] [address] [place] [address] [place] #### EST, LH #### [facility] , Monocytes (Bld) [#/Vol] 0.4 10*3/uL Normal 0.0-0.8 [facility] Comment on above: Performed By: #### F SH #### [facility] [address] [place] [address] [place] #### EST, LH #### [facility] , Monocytes/100 WBC (Bld) 7.5 % Normal . [facility] Comment on above: Performed By: #### F SH #### [place] [address] [place] #### EST, LH #### [facility] , Neutrophils (Bld) [#/Vol] 3.8 10*3/uL Normal 1.8-7.7 [facility] Comment on above: Performed By: #### F SH #### [place] [address] [place] #### EST, LH #### [facility] , Neutrophils/100 WBC (Bld) 63.0 % Normal . [facility] Comment on above: Performed By: #### F SH #### [facility] [address] [place] [address] [place] #### EST, LH #### [facility] , Nucleated RBC/100 WBC (Bld) [Ratio] 0.1 % Normal 0-0.5 [facility] Comment on above: Performed By: #### F SH #### [facility] [address] [place] [address] [place] #### EST, LH #### [facility] , Platelet mean volume (Bld) [Entitic vol] 8.6 fL Normal 6.3-10.7 [facility] Comment on above: Performed By: #### F SH #### [address] #### EST, LH #### [facility] , Platelets (Bld) [#/Vol] 274 10*3/uL Normal 150-450 [facility] Comment on above: Performed By: #### F SH #### [place] [address] [place] #### EST, LH #### [facility] , RBC (Bld) [#/Vol] 4.62 10*6/uL Normal 3.60-5.00 [facility] Comment on above: Performed By: #### F SH #### [place] [address] [place] #### EST, LH #### [facility] , WBC (Bld) [#/Vol] 6.0 10*3/uL Normal 4.5-11.0 [facility] Comment on above: Performed By: #### F SH #### [place] [address] [place] #### EST, LH #### [facility] , Employee Lipid Profileon Cholesterol [Mass/Vol] 185 mg/dL Normal 140-200 [facility] Comment on above: Result Comment: Chol less than 200 mg/dl low risk Chol 201-239 mg/dl borderline risk Chol 240 mg/dl and greater high risk Performed By: #### F SH #### [place] [address] [place] #### EST, LH #### [facility] , Cholesterol in HDL [Mass/Vol] 38 mg/dL Normal 35-85 [facility] Comment on above: Result Comment: HDL CHOL ATP-III CLASSIFICATION Cardiovascular Risk HDL > or equal to 60 mg/dL LOW HDL < 40 mg/dL HIGH Performed By: #### F SH #### [facility] [address] [place] [address] [place] #### EST, LH #### [facility] , Cholesterol.total/Ch olesterol in HDL [Mass ratio] 4.9 {ratio} Normal <5.0 [facility] Comment on above: Performed By: #### F SH #### [place] [address] [place] #### EST, LH #### [facility] , LDL Cholesterol,Calculat ed 112 mg/dL High 0-100 [facility] Comment on above: Result Comment: LDL ATP III CLASSIFICATION LDL less than 100 mg/dL Optimal LDL 100-129 mg/dL Near or above optimal LDL 130-159 mg/dL Borderline high LDL 160-189 mg/dL High LDL greater than 189 mg/dL Very high Performed By: #### F SH #### [place] [address] [place] #### EST, LH #### [facility] , Triglyceride w/Reflex 175 mg/dL High 35-149 [facility] Comment on above: Result Comment: TRIG ATP III CLASSIFICATION TRIG less than 150 mg/dL Normal TRIG 150-199 mg/dL Borderline high TRIG 200-500 mg/dL High TRIG greater than 500 mg/dL Very high Standard traceable to the Center for Disease Conrtrol and Prevention (CDC) test method. Performed By: #### F SH #### [place] [address] [place] #### EST, LH #### [facility] , VLDL CHOLESTEROL 35 mg/dL Normal [facility] Comment on above: Performed By: #### F SH #### [place] [address] [place] #### EST, LH #### [facility] , Employee Thyroid Stim Hormon buddy 02-24-2021 Employee Thyroid Stim Hormone 1.82 u[iU]/mL Normal 0.45-5.33 [facility] Comment on above: Result Comment: PERF ORMED BY: [place] [address] PATHOLOGIST LUMBER LOADER NICKOLAS ARTEAGA M.D. Performed By: #### F SH #### [facility] [address] [place] [address] #### EST, LH #### [facility] , Lipid Panelon 11-06-2020 Cholesterol [Mass/Vol] 206 mg/dL High 140-200 [facility] Comment on above: Result Comment: Chol less than 200 mg/dl low risk Chol 201-239 mg/dl borderline risk Chol 240 mg/dl and greater high risk Performed By: #### F SH #### [facility] [address] [place] [address] #### EST, LH #### [facility] , Cholesterol in HDL [Mass/Vol] 30 mg/dL Low 35-85 [facility] Comment on above: Result Comment: HDL CHOL ATP-III CLASSIFICATION Cardiovascular Risk HDL > or equal to 60 mg/dL LOW HDL < 40 mg/dL HIGH Performed By: #### F SH #### [facility] [address] [place] [address] #### EST, LH #### [facility] , Cholesterol.total/Ch olesterol in HDL [Mass ratio] 6.9 {ratio} Normal <5.0 [facility] Comment on above: Performed By: #### F SH #### [facility] [address] [place] [address] [place] #### EST, LH #### [facility] , LDL Cholesterol,Calculat ed 134 mg/dL High 0-100 [facility] Comment on above: Result Comment: LDL ATP III CLASSIFICATION LDL less than 100 mg/dL Optimal LDL 100-129 mg/dL Near or above optimal LDL 130-159 mg/dL Borderline high LDL 160-189 mg/dL High LDL greater than 189 mg/dL Very high Performed By: #### F SH #### [facility] [address] [place] [address] [place] #### EST, LH #### [facility] , Triglyceride w/Reflex 211 mg/dL High 35-149 [facility] Comment on above: Result Comment: TRIG ATP III CLASSIFICATION TRIG less than 150 mg/dL Normal TRIG 150-199 mg/dL Borderline high TRIG 200-500 mg/dL High TRIG greater than 500 mg/dL Very high Standard traceable to the Center for Disease Conrtrol and Prevention (CDC) test method. Performed By: #### F SH #### [place] [address] [place] #### EST, LH #### [facility] , VLDL CHOLESTEROL 42 mg/dL Normal [facility] Comment on above: Performed By: #### F SH #### [place] [address] [place] #### EST, LH #### [facility] , Thyroid Stim Hormone w/Rflxo n 11-06-2020 Thyroid Stim Hormone w/Rflx 1.52 u[iU]/mL Normal 0.45-5.33 [facility] Comment on above: Performed By: #### F SH #### [place] [address] [place] #### EST, LH #### [facility] , Vitamin D 25 Hydroxy Totalon 11-06-2020 Vitamin D 25 Hydroxy Total 29.0 ng/mL Low 30-100 [facility] Comment on above: Result Comment: [place] MIN D STATUS 25(OH)VITAMIN D RANGE (ng/mL) Deficient <20 Insufficient 20 to <30 Sufficient 30 to 100 Reference: Palma MF,Jose Manuel NC, Edwina CAREY, et al. Evaluation,treatment, and prevention of vitamin D deficiency; an Endocrine Society clinical practice guideline. JCEM. 2010; 96(7):1911-30. PERFORMED BY: [place] [address] PATHOLOGIST LUMBER LOADER NICKOLAS ARTEAGA M.D. Performed By: #### F #### [address] #### EST, #### [facility] , COVID-19 Antigenon 1 COVID-19 Antigen Healthcare Worker?: N Kavitha Reference Kavitha Reference Negative SARS-CoV+SARS-CoV-2 (COVID-19) Ag [Presence] in Respiratory specimen by Rapid immunoassay Negative for SARS Antigen by AGUSTINA COVID19 Blank Space Kavitha Disclaimer Negative results, from patients with symptom Kavitha Disclaimer onset beyond five days, should be treated as Kavitha Disclaimer presumptive and confirmation with a molecular Kavitha Disclaimer assay, if necessary, for patient management, Kavitha Disclaimer may be performed. Negative results do not rule Kavitha Disclaimer out COVID-19 and should not be used as the sole Kavitha Disclaimer basis for treatment or patient management Kavitha Disclaimer decisions, including infection control decisions. Kavitha Disclaimer Negative results should be considered in the Kavitha Disclaimer context of a patient's recent exposures, history Kavitha Disclaimer and the presence of clinical signs and symptoms Kavitha Disclaimer consistent with COVID-19. COVID19 Blank Space Kavitha Disclaimer The Kavitha SARS Antigen AGUSTINA does not differentiate Kavitha Disclaimer between SARS-CoV and SARS-CoV-2. COVID19 Blank Space Kavitha Disclaimer This test was developed and its performance Kavitha Disclaimer characteristic determined by [employer] and Kavitha Disclaimer validated at [facility]. This Kavitha Disclaimer test has not been FDA cleared or approved. This Kavitha Disclaimer test has been authorized by FDA under an Emergency Use Kavitha Disclaimer Authorization (EUA). This test has been validated Kavitha Disclaimer in accordance with the FDA's Guidance Document (Policy Kavitha Disclaimer for Diagnostics Testing in Laboratories Certified to Kavitha Disclaimer Perform High Complexity Testing under CLIA prior to Kavitha Disclaimer Emergency Use Authorization for Coronavirus Kavitha Disclaimer iseas during the Public Health Emergency) Kavitha Disclaimer issued on October 19, 2019. This test is only authorized Kavitha Disclaimer for the duration of time the declaration that Kavitha Disclaimer circumstances exist justifying the authorization of Kavitha Disclaimer the emergency use of in vitro diagnostic tests for Kavitha Disclaimer detection of SARS-CoV-2 virus and/or diagnosis of Kavitha Disclaimer COVID-19 infection under section 564(b)(1) of the Kavitha Disclaimer Act, 21 U.S.C. 360bbb-3(b)(1), unless the Kavitha Disclaimer authorization is terminated or revoked sooner. PERFORMED BY: [place] [address] PATHOLOGIST LUMBER LOADER NICKOLAS ARTEAGA M.D. Normal [facility] Comment on above: Performed By: #### F SH #### [address] #### EST, LH #### [facility] , Complete Blood Count Auto Di ffon 11-05-2020 Basophils (Bld) [#/Vol] 0.0 10*3/uL Normal 0.0-0.2 [facility] Comment on above: Result Comment: PERF ORMED BY: [place] [address] PATHOLOGIST LUMBER LOADER NICKOLAS ARTEAGA M.D. Performed By: #### C MP, CBC, ETOH #### [facility] [address] [place] [address] [place] Basophils/100 WBC (Bld) 0.7 % Normal . [facility] Comment on above: Performed By: #### C MP, CBC, ETOH #### [facility] [address] [place] [address] [place] Eosinophils (Bld) [#/Vol] 0.1 10*3/uL Normal 0.0-0.45 [facility] Comment on above: Performed By: #### C MP, CBC, ETOH #### [facility] [address] [place] [address] [place] Eosinophils/100 WBC (Bld) 1.5 % Normal . [facility] Comment on above: Performed By: #### C MP, CBC, ETOH #### [facility] [address] Erythrocyte distribution width (RBC) [Ratio] 12.5 % Normal 11.9-15.3 [facility] Comment on above: Performed By: #### C MP, CBC, ETOH #### [facility] [address] [place] [address] [place] Hematocrit (Bld) [Volume fraction] 43.5 % Normal 34.0-46.4 [facility] Comment on above: Performed By: #### C MP, CBC, ETOH #### [facility] [address] [place] [address] [place] Hemoglobin (Bld) [Mass/Vol] 14.7 g/dL Normal 11.8-15.4 [facility] Comment on above: Performed By: #### C MP, CBC, ETOH #### [facility] [address] [place] [address] [place] Lymphocytes (Bld) [#/Vol] 1.3 10*3/uL Normal 1.00-4.8 [facility] Comment on above: Performed By: #### C MP, CBC, ETOH #### [facility] [address] [place] [address] [place] Lymphocytes/100 WBC (Bld) 23.9 % Normal . [facility] Comment on above: Performed By: #### C MP, CBC, ETOH #### [facility] [address] MCH (RBC) [Entitic mass] 29.3 pg Normal 24.7-34.3 [facility] Comment on above: Performed By: #### C MP, CBC, ETOH #### [facility] [address] MCV (RBC) [Entitic vol] 87.1 fL Normal 80-100 [facility] Comment on above: Performed By: #### C MP, CBC, ETOH #### [address] Mean Corpuscular HGB Conc 33.7 g/dL Normal 32.0-35.0 [facility] Comment on above: Performed By: #### C MP, CBC, ETOH #### [address] Monocytes (Bld) [#/Vol] 0.3 10*3/uL Normal 0.0-0.8 [facility] Comment on above: Performed By: #### C MP, CBC, ETOH #### [address] Monocytes/100 WBC (Bld) 6.0 % Normal . [facility] Comment on above: Performed By: #### C MP, CBC, ETOH #### [address] Neutrophils (Bld) [#/Vol] 3.6 10*3/uL Normal 1.8-7.7 [facility] Comment on above: Performed By: #### C MP, CBC, ETOH #### [address] Neutrophils/100 WBC (Bld) 67.9 % Normal . [facility] Comment on above: Performed By: #### C MP, CBC, ETOH #### [address] Nucleated RBC/100 WBC (Bld) [Ratio] 0.1 % Normal 0-0.5 [facility] Comment on above: Performed By: #### C MP, CBC, ETOH #### [address] Platelet mean volume (Bld) [Entitic vol] 8.3 fL Normal 6.3-10.7 [facility] Comment on above: Performed By: #### C MP, CBC, ETOH #### [address] Platelets (Bld) [#/Vol] 269 10*3/uL Normal 150-450 [facility] Comment on above: Performed By: #### C MP, CBC, ETOH #### [address] RBC (Bld) [#/Vol] 5.00 10*6/uL Normal 3.60-5.00 [facility] Comment on above: Performed By: #### C MP, CBC, ETOH #### [address] WBC (Bld) [#/Vol] 5.3 10*3/uL Normal 4.5-11.0 [facility] Comment on above: Performed By: #### C MP, CBC, ETOH #### [address] Comprehensive Metabolic Pane teresita 11-05-2020 Albumin [Mass/Vol] 4.1 g/dL Normal 3.2-5.5 [facility] Comment on above: Performed By: #### C MP, CBC, ETOH #### [address] Albumin/Globulin [Mass ratio] 1.4 {ratio} Normal [facility] Comment on above: Performed By: #### C MP, CBC, ETOH #### [address] ALP [Catalytic activity/Vol] 64 U/L Normal 32-92 [facility] Comment on above: Performed By: #### C MP, CBC, ETOH #### [address] ALT [Catalytic activity/Vol] 67 U/L High 10-60 [facility] Comment on above: Performed By: #### C MP, CBC, ETOH #### [facility] [address] [place] [id number] [place] AST [Catalytic activity/Vol] 54 U/L High 10-42 [facility] Comment on above: Performed By: #### C MP, CBC, ETOH #### [facility] [address] [place] [address] [place] Bilirubin [Mass/Vol] 0.8 mg/dL Normal 0.3-1.2 [facility] Comment on above: Performed By: #### C MP, CBC, ETOH #### [facility] [address] Calcium [Mass/Vol] 9.6 mg/dL Normal 8.2-10.2 [facility] Comment on above: Performed By: #### C MP, CBC, ETOH #### [facility] [address] [place] [address] [place] Chloride [Moles/Vol] 104 mmol/L Normal 95-114 [facility] Comment on above: Performed By: #### C MP, CBC, ETOH #### [facility] [address] [place] [address] [place] CO2 [Moles/Vol] 25.1 mmol/L Normal 22.0-30.0 [facility] Comment on above: Performed By: #### C MP, CBC, ETOH #### [facility] [address] [place] [address] [place] Creatinine [Mass/Vol] 0.45 mg/dL Normal 0.44-1.03 [facility] Comment on above: Performed By: #### C MP, CBC, ETOH #### [facility] [address] [place] [address] [place] Creatinine Clr Calc Pharmacy 217.42 Normal [facility] Comment on above: Result Comment: PERF ORMED BY: [place] [address] PATHOLOGIST LUMBER LOADER NICKOLAS ARTEAGA M.D. Performed By: #### C MP, CBC, ETOH #### [place] [address] [place] Estimated GFR ( Allie > 60 Normal [facility] Comment on above: Result Comment: GFR estimated reference range: According to KDOQI guidelines, <60 ml/min/1.73m2 is sufficient to diagnose a patient with chronic kidney disease. Performed By: #### C MP, CBC, ETOH #### [address] Estimated GFR (Non- Am > 60 Normal [facility] Comment on above: Performed By: #### C MP, CBC, ETOH #### [address] Globulin (S) [Mass/Vol] 3.0 g/dL Normal [facility] Comment on above: Performed By: #### C MP, CBC, ETOH #### [address] Glucose [Mass/Vol] 128 mg/dL High 70-100 [facility] Comment on above: Result Comment: [place] Glucose Reference Range is dependent on time and content of last meal. Glucose of more than 200 mg/dL in a nonstressed, ambulatory subject supports the diagnosis of Diabetes Mellitus. ADA recommended reference range Performed By: #### C MP, CBC, ETOH #### [address] Potassium [Moles/Vol] 3.8 mmol/L Normal 3.5-5.1 [facility] Comment on above: Performed By: #### C MP, CBC, ETOH #### [place] [address] [place] Protein [Mass/Vol] 7.1 g/dL Normal 6.1-7.9 [facility] Comment on above: Performed By: #### C MP, CBC, ETOH #### [address] Sodium [Moles/Vol] 140 mmol/L Normal 136-146 [facility] Comment on above: Performed By: #### C MP, CBC, ETOH #### [address] [place] [address] [place] Urea nitrogen [Mass/Vol] 5 mg/dL Low 9- [facility] Comment on above: Performed By: #### C MP, CBC, ETOH #### [address] Dipstick and Microscopicon 0 11-05-2020 Appearance (U) Cloudy Critically abnormal Clear [facility] Comment on above: Order Comment: Name Collection Type:: Clean-Voided Midstream Performed By: #### A DDONUAPLUS, URDS, CUU #### [address] Bacteria,Urine None Seen Normal None Seen [facility] Comment on above: Order Comment: Name Collection Type:: Clean-Voided Midstream Performed By: #### A DDONUAPLUS, URDS, CUU #### [address] Bilirubin,Urine Negative Normal Negative [facility] Comment on above: Order Comment: Name Collection Type:: Clean-Voided Midstream Performed By: #### A DDONUAPLUS, URDS, CUU #### [address] Color (U) Yellow Normal Yellow [facility] Comment on above: Order Comment: Name Collection Type:: Clean-Voided Midstream Performed By: #### A DDONUAPLUS, URDS, CUU #### [address] Glucose Ql (U) Normal Normal Normal [facility] Comment on above: Order Comment: Name Collection Type:: Clean-Voided Midstream Performed By: #### A DDONUAPLUS, URDS, CUU #### [place] [address] [place] Hyaline Casts,Urine None Seen Normal 0-1 [facility] Comment on above: Order Comment: Name Collection Type:: Clean-Voided Midstream Performed By: #### A DDONUAPLUS, URDS, CUU #### [address] Ketones Ql (U) Negative Normal Negative [facility] Comment on above: Order Comment: Name Collection Type:: Clean-Voided Midstream Performed By: #### A DDONUAPLUS, URDS, CUU #### [address] Leukocyte esterase Test strip Ql (U) 2+ High Negative [facility] Comment on above: Order Comment: Name Collection Type:: Clean-Voided Midstream Performed By: #### A DDONUAPLUS, URDS, CUU #### [address] Nitrite,Urine Negative Normal Negative [facility] Comment on above: Order Comment: Name Collection Type:: Clean-Voided Midstream Performed By: #### A DDONUAPLUS, URDS, CUU #### [address] Occult Blood,Urine Negative Normal Negative [facility] Comment on above: Order Comment: Name Collection Type:: Clean-Voided Midstream Result Comment: PERF ORMED BY: [place] [address] PATHOLOGIST LUMBER LOADER NICKOLAS ARTEAGA M.D. Performed By: #### A DDONUAPLUS, URDS, CUU #### [address] Other Casts,Urine None Seen Normal None Seen [facility] Comment on above: Order Comment: Name Collection Type:: Clean-Voided Midstream Result Comment: PERF ORMED BY: [place] [address] PATHOLOGIST LUMBER LOADER NICKOLAS ARTEAGA M.D. Performed By: #### A DDONUAPLUS, URDS, CUU #### [address] pH (U) 6.5 [pH] Normal 5.0-9.0 [facility] Comment on above: Order Comment: Name Collection Type:: Clean-Voided Midstream Performed By: #### A DDONUAPLUS, URDS, CUU #### [facility] [address] [place] [address] [place] Protein,Urine Trace High Negative [facility] Comment on above: Order Comment: Name Collection Type:: Clean-Voided Midstream Performed By: #### A DDONUAPLUS, URDS, CUU #### [facility] [address] [place] [address] RBC,Urine None Seen Normal 0-4 [facility] Comment on above: Order Comment: Name Collection Type:: Clean-Voided Midstream Performed By: #### A DDONUAPLUS, URDS, CUU #### [address] Renal Epithelial Cells,Urine None Seen Normal 0-1 [facility] Comment on above: Order Comment: Name Collection Type:: Clean-Voided Midstream Performed By: #### A DDONUAPLUS, URDS, CUU #### [address] Specificy [place],Urine 1.018 Normal 1.001-1.030 [facility] Comment on above: Order Comment: Name Collection Type:: Clean-Voided Midstream Performed By: #### A DDONUAPLUS, URDS, CUU #### [address] Squamous Epithelial Cell,Urine Innumerable High 0-2 [facility] Comment on above: Order Comment: Name Collection Type:: Clean-Voided Midstream Performed By: #### A DDONUAPLUS, URDS, CUU #### [place] [address] [place] Urobilinogen,Urine Normal Normal Normal [facility] Comment on above: Order Comment: Name Collection Type:: Clean-Voided Midstream Performed By: #### A DDONUAPLUS, URDS, CUU #### [place] [address] [place] WBC,Urine 10-19 High 0-4 [facility] Comment on above: Order Comment: Name Collection Type:: Clean-Voided Midstream Performed By: #### A DDONUAPLUS, URDS, CUU #### [place] [address] [place] Drug Screen,Urineon 11-06-19 Amphetamine Screen,Urine Negative Normal Negative [facility] Comment on above: Performed By: #### A DDONUAPLUS, URDS, CUU #### [place] [address] [place] Barbiturate Screen,Urine Negative Normal Negative [facility] Comment on above: Performed By: #### A DDONUAPLUS, URDS, CUU #### [place] [address] [place] Benzodiazepines Screen,Urine Negative Normal Negative [facility] Comment on above: Performed By: #### A DDONUAPLUS, URDS, CUU #### [address] Cannabinoid Screen,Urine Negative Normal Negative [facility] Comment on above: Result Comment: Thes e are unconfirmed results and should not be used for legal purposes. Drug Cut-Off Concentration: AMPH 1000 ng/mL DENISE 200 ng/mL SADAF 200 ng/mL COCM 300 ng/mL OP 300 ng/mL PCP 25 ng/mL THC 20 ng/mL PERFORMED BY: [place] [address] PATHOLOGIST LUMBER LOADER NICKOLAS ARTEAGA M.D. Performed By: #### A DDONUAPLUS, URDS, CUU #### [address] Cocaine Screen,Urine Negative Normal Negative [facility] Comment on above: Performed By: #### A DDONUAPLUS, URDS, CUU #### [place] [address] [place] Opiate Screen,Urine Negative Normal Negative [facility] Comment on above: Performed By: #### A DDONUAPLUS, URDS, CUU #### [place] [address] [place] Phencyclidine Screen,Urine Negative Normal Negative [facility] Comment on above: Performed By: #### A DDONUAPLUS, URDS, CUU #### [facility] [address] [place] [address] Ethyl Alcohol Profileon 10-18 Ethanol [Mass/Vol] mg/dL Normal [facility] Comment on above: Performed By: #### C MP, CBC, ETOH #### [facility] [address] [place] [address] Percent Ethanol Not performed Normal [facility] Comment on above: Result Comment: PERF ORMED BY: [place] [address] PATHOLOGIST LUMBER LOADER NICKOLAS ARTEAGA M.D. Performed By: #### C MP, CBC, ETOH #### [address] Kavitha Ag Negativeon 11-06-19 Kavitha Ag Negative Negative Normal Negative [facility] Comment on above: Result Comment: This is a duplicate Kavitha SARS Antigen (AGUSTINA) result to be used for statistical tracking purpose only. PERFORMED BY: [place] [address] PATHOLOGIST LUMBER LOADER NICKOLAS ARTEAGA M.D. Performed By: #### F SH #### [address] #### EST, LH #### [facility] , Urine Cultureon 11-05-2020 Bacteria identified Cx Nom (U) >100,000 colonies/ml mixed bacterial skin contaminants 2 Days PERFORMED BY: [place] [address] PATHOLOGIST LUMBER LOADER NICKOLAS ARTEAGA M.D. [facility] Comment on above: Performed By: #### A DDONUAPLUS, URDS, CUU #### [address] US breast RT completeon US breast RT complete [facility] [place] [address] [place] [address] Ultrasound Report Signed Patient: Evelia Frances MR#: [id number] : 1965 Acct:[id number] Age/Sex: 55 / F ADM Date: 10/25/20 Loc: [facility] Room: Type: [facility] Attending Dr: Hiwot Fisher MD Ordering Provider: Hiwot Fisher MD Date of Service: 10/25/20 US/US breast RT complete: ABN MAMM Copies to: Hiwot Fisher MD LIMITED RIGHT BREAST ULTRASOUND CLINICAL DATA: Follow-up after benign biopsy. COMPARISON: Mammograms and ultrasound from May 07, 2020. Real-time ultrasound evaluation of the lateral breast was performed. At 8:00, 4 - 5 cm from the nipple there is still an oval mixed echogenicity nodular area. It measures 11 x 6 x 11 mm cyst which is similar. There is an echogenic focus along the margin that may be the biopsy marking clip. At 9:00 in the periareolar region, there are couple tiny cysts, the larger measures 5 mm. These are believed to be oil cysts based on prior mammograms. US/US breast RT complete IMPRESSION: STABLE ULTRASOUND FINDINGS. ROUTINE MAMMOGRAPHIC FOLLOW-UP IS SUGGESTED AT THE TIME OF PATIENT'S NEXT ANNUAL BILATERAL EXAM. Impression dictated by: Tammy Mera M.D.10/25/2020 11:01 AM Dictation Location: [facility] Tech: Silvana Ariel Transcribed By: GUY 10/25/20 1101 Dictated By: Tammy Mera MD 10/25/20 0936 Signed By: 10/25/20 1101 Normal [facility] Estrogens, Totalon 1 Estrogens, Total 76 pg/mL Normal . [facility] Comment on above: Result Comment: Prep ubertal <40 Female Cycle: 1-10 Days 61 - 394 11-20 Days 122 - 437 21-30 Days 156 - 350 Post-Menopausal <40 HMG Treatment for Ovulation Induction: 400 - 800 Performed at: - [facility] [id number] Work Force Advisor: Bella Gonzalez MD, Phone: [phone] Performed By: #### F SH #### [facility] [address] [place] [address] #### EST, LH #### [facility] , Follicle Stimulating Hormone on 10-08-2020 Follicle Stimulating Hormone 6.1 m[iU]/mL Normal [facility] Comment on above: Result Comment: FEMA LE NORMALS (PREMENOPAUSE) MID-FOLLICULAR PHASE: 3.9-8.8 mIU/mL MID-CYCLE PEAK: 4.5-22.5 mIU/mL MID-LUTEAL PHASE: 1.8-5.1 mIU/mL FEMALE NORMALS (POSTMENOPAUSE): 16.7-113.6 mIU/mL MALE NORMALS: 1.3-19.3 mIU/mL PERFORMED BY: [place] [address] PATHOLOGIST LUMBER LOADER NICKOLAS ARTEAGA M.D. Performed By: #### F SH #### [address] #### EST, LH #### [facility] , Luteinizing Hormoneon 2020 Luteinizing Hormone 1.3 m[iU]/mL Normal . [facility] Comment on above: Result Comment: Adul t Female: Follicular phase 2.4 - 12.6 Ovulation phase 14.0 - 95.6 Luteal phase 1.0 - 11.4 Postmenopausal 7.7 - 58.5 Performed at: [facility] [id number] Work Force Advisor: Delfino Clemente PhD, Phone: [phone] PERFORMED BY: [place] [address] PATHOLOGIST LUMBER LOADER NICKOLAS ARTEAGA M.D. Performed By: #### F SH #### [place] [address] [place] #### EST, LH #### [facility] , Vital Signs Date Time Vital Sign Value Performing Clinician Facility 02-28-2024 17:16-0400 Body height 172.72 cm MD Hiwot Fisher Work Phone: [facility] 02-28-2024 17:16-0400 Body mass index (BMI) [Ratio] 47.4 kg/m2 MD Hiwot Fisher Work Phone: [facility] 02-28-2024 17:16-0400 Body temperature 98.2 [degF] MD Hiwot Fisher Work Phone: [facility] 02-28-2024 17:16-0400 Body weight 141.52 kg MD Hiwot Fisher Work Phone: [facility] 02-28-2024 17:16-0400 Diastolic blood pressure 93 mm[Hg] MD Hiwot Fisher Work Phone: [facility] 02-28-2024 17:16-0400 Heart rate 90 /min MD Hiwot Fisher Work Phone: [facility] 02-28-2024 17:16-0400 Respiratory rate 20 /min MD Hiwot Fisher Work Phone: [facility] 02-28-2024 17:16-0400 SaO2% (BldA) [Mass fraction] 97 % MD Hiwot Fisher Work Phone: [facility] 02-28-2024 17:16-0400 Systolic blood pressure 161 mm[Hg] MD Hiwot Fisher Work Phone: [facility] 02-24-2024 08:51-0400 Body height 172.72 cm MD Hiwot Fisher Work Phone: [facility] 02-24-2024 08:51-0400 Body mass index (BMI) [Ratio] 47.7 kg/m2 MD Hiwot Fisher Work Phone: [facility] 02-24-2024 08:51-0400 Body weight 142.42 kg MD Hiwot Fisher Work Phone: [facility] 02-24-2024 08:51-0400 Diastolic blood pressure 76 mm[Hg] MD Hiwot Fisher Work Phone: [facility] 02-24-2024 08:51-0400 Heart rate 91 /min MD Hiwot Fisher Work Phone: [facility] 02-24-2024 08:51-0400 Systolic blood pressure 135 mm[Hg] MD Hiwot Fisher Work Phone: [facility] 01-27-2024 14:16-0400 Body height 170.18 cm MD Hiwot Fisher Work Phone: [facility] 01-27-2024 14:16-0400 Body mass index (BMI) [Ratio] 48.6 kg/m2 MD Hiwot Fisher Work Phone: [facility] 01-27-2024 14:16-0400 Body temperature 98.4 [degF] MD Hwiot Fisher Work Phone: [facility] 01-27-2024 14:16-0400 Body weight 141.06 kg MD Hiwot Fisher Work Phone: [facility] 01-27-2024 14:16-0400 Diastolic blood pressure 88 mm[Hg] MD Hiwot Fisher Work Phone: [facility] 01-27-2024 14:16-0400 Heart rate 97 /min MD Hiwot Fisher Work Phone: [facility] 01-27-2024 14:16-0400 Systolic blood pressure 151 mm[Hg] MD Hiwot Fisher Work Phone: [facility] 08-06-2022 11:30-0500 Body height 168.91 cm Hiwot Fisher Other [facility] [employer] Other 08-06-2022 11:30-0500 Body mass index (BMI) [Ratio] 48.01 kg/m2 Hiwot Fisher Other [facility] [employer] Other 08-06-2022 11:30-0500 Body weight 136.99 kg Hiwot Fisher Other [facility] [employer] Other 08-06-2022 11:30-0500 Diastolic blood pressure 80 mm[Hg] Hiwot Fisher Other [employer] Other 08-06-2022 11:30-0500 SaO2% (BldA) [Mass fraction] 99 % Hiwot Fisehr Other [employer] Other 08-06-2022 11:30-0500 Systolic blood pressure 122 mm[Hg] Hiwot Fisher Other [employer] Other Encounters Encounter Date Encounter Type Care Provider Facility Start: 02-28-2024 End: 02-28-2024 ambulatory MD Hiwot Fisher Work Phone: [facility] Work Phone: Start: 02-28-2024 End: 02-28-2024 Patient encounter procedure MD Hiwot Fisher Work Phone: [facility] Work Phone: Start: 02-24-2024 Patient encounter status MD Hiwot Fisher Work Phone: [facility] Start: 02-23-2024 End: 02-23-2024 ambulatory MD Hiwot Fisher Work Phone: [facility] Work Phone: Start: 02-23-2024 End: 02-23-2024 Encounter for general adult medical examination without abnormal findings MD Hiwot Fisher Work Phone: [facility] Start: 02-23-2024 End: 02-23-2024 Patient encounter procedure MD Hiwot Fisher Work Phone: [facility] Work Phone: Start: 01-27-2024 End: 01-27-2024 ambulatory MD Hiwot Fisher Work Phone: [facility] Work Phone: Start: 01-27-2024 End: 01-27-2024 Patient encounter procedure MD Hiwot Fisher Work Phone: [facility] Work Phone: Start: 01-25-2024 Registered Recurring MD Hiwot Fisher Work Phone: [facility] Start: 01-10-2024 Registered Recurring MD Hiwot Fisher Work Phone: [facility] Start: 04-01-2023 (Televisit) Televisit Hiwot Fisher [facility] Start: 04-01-2023 End: 04-01-2023 ambulatory Hiwot Fisher Other [employer] Other Start: 03-31-2023 End: 03-31-2023 ambulatory Deb Starks Other [employer] Other Start: 03-31-2023 Telephone encounter Deb Guevara her [facility] Start: 01-11-2023 End: 01-11-2023 ambulatory Hiwot Fisher Other [employer] Other Start: 01-11-2023 Telephone encounter Hiwot Fisher [facility] Start: 10-05-2022 End: 10-05-2022 ambulatory Hiwot Fisher Other [employer] Other Start: 10-05-2022 Telephone encounter Hiwot Fisher [facility] Start: 08-06-2022 End: 08-06-2022 ambulatory Hiwot Fisher Other [employer] Other Start: 08-06-2022 Office outpatient vi sit 15 minutes Hiwot Fisher [facility] Start: 08-03-2022 End: 08-03-2022 ambulatory Hiwot Fisher Other [employer] Other Start: 08-03-2022 Telephone encounter Hiwot Fisher [facility] Start: 01-26-2022 Encounter for genera l adult medical examination without abnormal findings DR HIWOT FISHER [facility] Start: 01-21-2022 End: 01-22-[address] BENJAMIN MALAVE Facility:[facility] Start: 01-21-2022 End: 01-22-2022 Encounter for general adult medical examination without abnormal findings DR BENJAMIN MALAVE Facility:[facility] Start: 07-21-2021 End: 07-21-2021 ambulatory KAROL CASH Facility:[facility] Start: 05-14-2021 End: 05-15-2021 ambulatory RENU MARIE Facility:[facility] Start: 05-05-2021 End: 05-05-2021 ambulatory KAROL CASH Facility:[facility] Plan of Treatment Date Care Activity Detail Author MG Breast - bilateral Screening [facility] Immunizations Immunization Date Immunization Notes Care Provider Fa papo 08-13-2020 COVID-19 mRNA-1273 (Vanessa) MD Hiwot Fisher Work Phone: [facility] 07-16-2020 COVID-19 mRNA-1273 (Vanessa) MD Hiwot Fisher Work Phone: [facility] Payers Date Payer Category Payer Unknown [id number] 1965 Unknown [id number] [id number]. [id number] 1965 Unknown [id number] 09.03.83 [id number] 1957 Self-pay [id number] [facility] [id number] Self-pay Self Pay [id number] Unknown [id number] 09.03.83 [id number] Unknown [id number] Unknown [employer] [id number] Social History Date Type Detail Facility Unknown if ever smoked [employer] Other Sex Assigned At Sex Assigned At Bir th [employer] Other Start: 11-06-2020 Tobacco smoking status NHIS Never smoked tobacco (finding) [facility] Start: 1965 Sex Assigned At Female F [facility] Evaluation note 04-01-2023 Note Date & Type Note Facility 04-01-2023 Evaluation note Encounter Date Diagnosis Assessment Notes Mar, COVID -19 (ICD- 10 - U07.1 ) COVID symptoms improving. No new needs voiced. Return to work next week. ER if symptoms worsen. [employer] Other Evaluation note 03-31-2023 Note Date & Type Note Facility 03-31-2023 Evaluation note Encounter Date Diagnosis Assessment Notes Mar, COVID- 19 (ICD-1 0 - U07.1) [employer] Other Evaluation note 08-06-2022 Note Date & Type Note Facility 08-06-2022 Evaluation note Encounter Date Diagnosis Assessment Notes Jul, Bilateral otitis media with effusion (ICD-10 - H65.93) Start different antibiotic, continues to have problems while on meds. Jul, Moderate persistent asthma with acute exacerbation (ICD-10 - J45.41) Symptoms worsened. 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 [employer] Other Evaluation note Note Date & Type Note Facility Evaluation note No Information [employer] Other Evaluation note Note Date & Type Note Facility Evaluation note No assessment information availa ble [facility] Work Phone: Evaluation note Note Date & Type Note Facility Evaluation note Diagnosis Onset Date Asthmatic bronchitis with acute exacerbation acute [facility] Work Phone: Evaluation note Note Date & Type Note Facility Evaluation note Diagnosis Onset Date Asthmatic bronchitis with acute exacerbation acute Colon cancer screening acute Family history of breast cancer acute Screening mammogram for breast cancer acute Wellness examination acute Cellulitis noneactive [facility] Work Phone: History general Narrative - Reported Note Date & Type Note Facility History general Narrative - Reported Type Medical History high cholesterol Medical History depression Medical History high blood pressure Medical History asthma Surgical History bilateral carpal tunnel release Surgical History hysterectomy Surgical History carpal tunnel release Surgical History hysterectomy Surgical History colonoscopy Surgical History sinus surgery Surgical History sinus surgery Hospitalization History see surgical history Hospitalization History childbirth [employer] Other Summary Purpose Family History Relationship Condition Age at Onset Recorded Date/T linda father Unknown Advance Directives Advance Directive Response Recorded Date/ Time Advance Directives Yes August 10:09am Chief Complaint and Reason for Visit Chief Complaint BH possible bronchitis Chief Complaint BH possible bronchitis wellness Reason for Visit Asthmatic bronchitis with acute exacerbation Chief Complaint BH possible bronchitis wellness poss wound infection, left knee Reason for Visit Asthmatic bronchitis with acute exacerbation Colon cancer screening Family history of breast cancer Screening mammogram for breast cancer Wellness examination Cellulitis Additional Source Comments INFORMATION SOURCE (unrecogn ized section and content) DATE CREATED AUTHOR 08/03/2021 [facility] DATE CREATED AUTHOR AUTHOR'S ORGANIZ ATION 02/19/2022 [facility] REASON FOR VISIT (unrecogniz ed section and content) URI symptomsSick-COVID Negat iveprescription refillNo InformationREFILLCOVID [phone] COVID + Care Teams (unrecognized sec tion and content) Team Status: Active Member Role Status Dates Hiwot Fisher MD Primary Care Provider Active Team Status: Active Member Role Status Dates Hiwot Fisher MD Primary Care Provider Active Start: January 10, 2024 Anatoliy Soto MD Attending Provider Active Start: January 10, 2024 Team Status: Inactive Member Role Status Dates Hiwot Fisher MD Primary Care Provide r, Attending Provider Active Start: January 27, 2024 End: January 27, 2024 Team Status: Active Member Role Status Dates Hiwot Fisher MD Primary Care Provider Active Start: January 25, 2024 Anatoliy Soto MD Attending Provider Active Start: January 25, 2024 Team Status: Inactive Member Role Status Dates Hiwot Fisher MD Primary Care Provide r, Attending Provider Active Start: February 23, 2024 End: February 23, 2024 Team Status: Inactive Member Role Status Dates Hiwot Fisher MD Primary Care Provider Active Start: February 28, 2024 End: February 28, 2024 Va Swan APRN Attending Provider Active Sta rt: February 28, 2024 End: February 28, 2024 Goals (unrecognized section and content) Goals may be documented in a n alternate section FOR RECORDS PERTAINING TO PATIENTS WHO ARE OR HAVE BEEN ENROLLED IN A CHEMICAL DEPENDENCY/SUBSTANCEABUSE PROGRAM, SOME INFORMATION MAY BE OMITTED. This clinical summary was aggregated from multiple sources. Caution should be exercised in using it in the provision of clinical care. This summary normalizes information from multiple sources, and as a consequence, information in this document may materially change the coding, format and clinical context of patient data. In addition, data may be omitted in some cases. CLINICAL DECISIONS SHOULD BE BASED ON THE PRIMARY CLINICAL RECORDS. [facility] [employer] provides no warranty or guarantee of the accuracy or completeness of information in this document.
--- NOTE | 2024-03-03 07:30 | MM_ITS ---
Patient Name: ADRIAN FRANCES MR#: [id number] : 1965 Exam Date: 03/03/2024 Ordering Doctor: DR Hiwot Rich M.D. RADIOLOGY REPORT PROCEDURE: MM TOMOSYNTHESIS SCREENING BI COMPARISON: MM TOMOSYNTHESIS SCREENING BI, 02/24/2023. MG MAMM SCREEN 3D STEPHY CAD, 01/21/2022. MAMMO POST BIOPSY RIGHT, 05/07/2020. MG MAMM SCREEN STEPHY W CAD, 04/27/2020. INDICATIONS: Screening Calculator Name NCI Breast Cancer Risk Assessment Tool 5 Year Breast Cancer Risk 2.90% Lifetime Breast Cancer Risk 16.60% Personal Breast Cancer No Personal Ovarian Cancer No Treatments None Family Cancers Mother with breast cancer at age 64; Grandmother-maternal with breast cancer at age ~60. LOCATION: [facility] BREAST COMPOSITION: There are scattered areas of fibroglandular density. FINDINGS: DIAGNOSTIC CATEGORY 2--BENIGN FINDING: RIGHT BREAST: No significant suspicious finding. Scattered benign-appearing nodules are present. No significant change has occurred. LEFT BREAST: No significant suspicious finding. Scattered benign-appearing calcifications are present. No significant change has occurred. RECOMMENDATIONS: ROUTINE MAMMOGRAM AND CLINICAL EVALUATION IN 12 MONTHS. PLEASE NOTE: A NORMAL MAMMOGRAM DOES NOT EXCLUDE THE POSSIBILITY OF BREAST CANCER. A CLINICALLY SUSPICIOUS PALPABLE LUMP SHOULD BE BIOPSIED. Dictated by: Benjamin Malave M.D. on 03/03/2024 at 13:38 Approved by: Benjamin Malave M.D. on 03/03/2024 at 13:40
[2024-03-03 08:01] LABS: Basophils Absolute Auto 0.1 10^3/uL (0.0-0.1); Basophils Percent Auto 1.1 % (0.2-2.0); Eosinophils Absolute Auto 0.2 10^3/uL (0.0-0.7); Eosinophils Percent Auto 2.9 % (0.9-7.0); Hematocrit 42.9 % (36.0-48.0); Hemoglobin 14.2 g/dL (12.0-16.0); Immature Granulocytes Abs Auto 0.01 10^3/uL (0.00-0.03); Immature Granulocytes Pct Auto 0.2 % (0.0-0.5); Lymphocytes Absolute Auto 1.9 10^3/uL (1.2-3.8); Mean Corpuscular HGB Conc 33.1 g/dL (29.9-35.2); Mean Corpuscular Hemoglobin 29.3 pg (26.7-34.0); Mean Corpuscular Volume 88.5 fL (81.0-99.0); Mean Platelet Volume 9.5 fL (9.5-13.5); Monocytes Absolute Auto 0.4 10^3/uL (0.3-0.8); Monocytes Percent Auto 6.8 % (1.7-12.0); Neutrophils Absolute Auto 3.8 10^3/uL (1.4-6.5); Platelet Count 340 10^3/uL (150-450); Red Blood Count 4.85 10^6/uL (4.20-5.40); Red Cell Distribution Width 12.4 % (11.0-15.0); White Blood Count 6.5 10^3/uL (4.0-11.0)
[2024-03-03 09:01] LABS: Estimated Average Glucose 137 mg/dL; Glycohemoglobin A1C 6.4 % (4.5-6.2)
[2024-03-03 09:49] LABS: Alanine Aminotransferase 61 U/L (14-59); Albumin Globulin Ratio 1.2; Albumin Level 3.8 g/dL (3.4-5.0); Alkaline Phosphatase 72 U/L (46-116); Aspartate Amino Transferase 27 U/L (15-37); BUN Creatinine Ratio 13.1; Bilirubin Total 0.5 mg/dL (0.2-1.0); Calcium 9.1 mg/dL (8.5-10.1); Chloride 104 mmol/L (98-107); Chol HDL Ratio 4.5; Cholesterol 207 mg/dL (<=200); Estimated GFR (African America >60 (>=60); Estimated GFR (Non-African Ame >60 (>=60); Globulin 3.3 g/dL; Glucose 121 mg/dL (74-106); HDL Cholesterol 46 mg/dL (40-60); Sodium 141 mmol/L (136-145); Thyroid Stimulating Hormone 1.926 uIU/mL (0.358-3.740); Total Protein 7.1 g/dL (6.4-8.2); Triglycerides 198 mg/dL (<=150); VLDL CHOLESTEROL 39.6 mg/dL
== END 2024-03-03 07:15 | disposition home or self-care (01) ==
LOC: MAMMO 07:14
PROVIDERS: PCP Family Medicine; Visit Provider Family Medicine
DX: Z00.00 Encounter for general adult medical examination without abnormal findings (principal); Z12.31 Encounter for screening mammogram for malignant neoplasm of breast; Z80.3 Family history of malignant neoplasm of breast
CPT/HCPCS: 36415; 77063; 77067; 80053; 80061; 83036; 84443; 85025

== ENCOUNTER 2024-10-18 16:58 | Outpatient (OUT) | payer BC, SELFPAY | END 2024-10-18 16:59 | disposition home or self-care (01) | LOC: US 16:59 | PROVIDERS: PCP Family Medicine; Visit Provider Family Medicine | DX: M79.605 Pain in left leg (principal); M71.22 Synovial cyst of popliteal space [Baker], left knee | CPT/HCPCS: 93971 ==

== ENCOUNTER 2025-03-09 06:46 | Outpatient (OUT) | payer BC, SELFPAY ==
--- OUTSIDE RECORDS SUMMARY | 2025-03-09 06:49 | XMS_ITS | Clinical Summary ---
Author Organization [facility] Address [address] [place] [address] Care Team Providers Care Work From Home Name Role Phone Hiowt Rich MD Primary Care Provider [phone] Encounters Date Type Department Care Team Description 01/29/2025 3:30 PM EDT Office Visit [facility] [address] [place] [address] Sensorineural hearing loss (SNHL) of both ears (Primary Dx) from Last 3 Months Social History Tobacco Use Types Packs/Day Years Used Date Smoking Tobacco: Never Assessed Comments Unknown Sex and Gender Information Value Date Recorded Sex Assigned at Female 03/29/2024 6:50 PM EDT Legal Sex Female 6:45 PM EDT Gender Identity Female 03/29/2024 6:50 PM EDT Sexual Orientation Straight 03/29/2024 6: 50 PM EDT Last Filed Vital Signs Vital Sign Reading Time Taken Comments Blood Pressure 124/82 03/12/2020 12:00 PM EDT Pulse - - Temperature - - Respiratory Rate - - Oxygen Saturation - - Inhaled Oxygen Concentration - - Weight 146 kg (322 lb) 06/03/2020 12:00 PM EST Height 171.5 cm (5' 7.5 ) 06/03/2020 12:00 PM ES T Body Mass Index 49.69 06/03/2020 12:00 PM EST Plan of Treatment Health Maintenance Due Date Last Done Comments CT Colonography 1967 Colonoscopy 1965 Colorectal Cancer Screening 1965 FIT-DNA 1967 FIT 1967 FOBT 1965 Sigmoidoscopy 1967 Pap Smear 01/02/1988 Cervical Cancer Screening 1997 HPV/Cotest 1997 Mammogram 2007 Influenza Vaccine (#1) 2025 04/27/2024, 2017 Insurance [employer] Care Teams Work From Home Relationship Specialty Start Date End Date Hiwot Rich MD [address] [place] [phone] PCP - General Family Medicine 01/18/25
--- OUTSIDE RECORDS SUMMARY | 2025-03-09 06:49 | XMS_ITS | Encounter Summary ---
Author Organization [facility] Address [address] [place] [address] Care Team Providers Care Public Welfare Worker Name Role Phone Hiwot Rich MD Primary Care Provider [phone] Encounter Details Date Type Department Care Team (Late st Contact Info) Description 05/30/2024 Abstract [facility] [address] [place] [phone] Evelia Aguilar, [facility] [address] [place] [address] Social History Tobacco Use Types Packs/Day Years Used Date Smoking Tobacco: Never Assessed Comments Unknown Sex and Gender Information Value Date Recorded Sex Assigned at Female 03/29/2024 6:50 PM EDT Legal Sex Female 6:45 PM EDT Gender Identity Female 03/29/2024 6:50 PM EDT Sexual Orientation Straight 03/29/2024 6: 50 PM EDT documented as of this encounter Plan of Treatment Not on file documented as of this encounter Visit Diagnoses Not on filedocumented in this encounter Care Teams Public Welfare Worker Relationship Specialty Start Date End Date Hiwot Rich MD [address] [place] [phone] PCP - General Family Medicine 01/18/25 documented as of this encounter
--- OUTSIDE RECORDS SUMMARY | 2025-03-09 06:49 | XMS_ITS | Encounter Summary ---
Author Organization [facility] Address [address] [place] [address] Care Team Providers Care Starch Mangle Tender Name Role Phone Hiwot Rich MD Primary Care Provider [phone] Encounter Details Date Type Department Care Team (Late st Contact Info) Description 08/22/2024 Abstract [facility] [address] [place] [phone] Evelia Aguilar, [facility] [address] [place] [address] Social History Tobacco Use Types Packs/Day Years [...] on filedocumented in this encounter Care Teams Starch Mangle Tender Relationship Specialty Start Date End Date Hiwot Rich MD [address] [place] [phone] PCP - General Family Medicine 01/18/25 documented as of this encounter
--- OUTSIDE RECORDS SUMMARY | 2025-03-09 06:49 | XMS_ITS | Clinical Summary ---
Author Organization [facility] Address [address] [place] [address] Care Team Providers Care Technical Sales Associate Name Role Phone Unavailable Primary Care Provider Unavailabl e Active Problems Problem Noted Date Diagnosed Date Elderly primigravida, antepartum 03/02/2003 Genetic counseling and testing 03/02/2003 Essential hypertension, benign 03/02/2003 Social History Tobacco Use Types Packs/Day Years Used Date Smoking Tobacco: Never Assessed Comments No Sex and Gender Information Value Date Recorded Sex Assigned at Female 07/28/2021 6:34 PM EST Legal Sex Female 9:59 AM EST Gender Identity Female 07/28/2021 6:34 PM EST Sexual Orientation Straight 07/28/2021 6: 34 PM EST Plan of Treatment Health Maintenance Due Date Last Done Comments Anxiety Screening 1985 Depression Screening 1985 HIV Screening 1985 Hepatitis C Screening 1985 DTaP,Tdap,Td Vaccine (1 - Tdap) 1986 Hepatitis B Vaccine (1 of 3 - 19+ 3-dose series) 1986 Cervical Cancer Screening 01/02/[address] Colonography 01/02/2012 Cologuard (FIT-DNA) 01/02/2012 Colonoscopy 01/02/2012 Colorectal Cancer Screening 01/02/2012 Diabetes Screening 01/02/2012 Fecal Occult Blood 01/02/2012 Lipid Screening 01/02/2012 Sigmoidoscopy 01/02/2012 Pneumococcal Vaccine: 50+ (1 of 1 - PCV) 2017 Shingrix Vaccine (1 of 2) 2017 Influenza Vaccine (#1) 2025 04/21/2018, 2008 Insurance [facility] PPO
--- OUTSIDE RECORDS SUMMARY | 2025-03-09 06:50 | XMS_ITS | CCD ---
Author Organization [facility] CliniSynd Care Team Providers Care Robotics Software Engineer Name Role Phone DR BENJAMIN MALAVE Consulting Unavailable PHILLIP, DR HIWOT Licona Admitting Unavailable FISHER, DR IHWOT Licona Primary Care Unavailable FISHER, DR HIWOT Licona Attending Unavailable FISHER, DR HIWOT Licona Consulting Unavailable SHAILESH, KAROL Admitting Unavailable SHAILESH, KAROL Consulting Unavailable SHAILESH, KAROL Attending Unavailable FISHER, DR HIWOT Licona Primary Care Unavailable RENU MARIE Admitting Unavailable ROSS, RENU KAMINSKI Consulting Unavailable RENU MARIE Attending Unavailable PHILLIP, DR HIWOT Licona Primary Care Unavailable SHAILESH, KAROL Admitting Unavailable SHAILESH, KAROL Consulting Unavailable SHAILESH, KAROL Attending Unavailable FISHER, DR HIWOT Licona Primary Care Unavailable Hiwot Fisher Unavailable Deb Starks Unavailable MD Hiwot Fisher Primary Care Provider MD Anatoliy Soto Attending Provider MD Hiwot Fisher Primary Care Provider MD Anatoliy Soto Attending Provider Unavailable Primary Care Provider UnavailHiwot Petersen MD Primary Care Provider Anatoliy Soto MD Attending Provider Trung Porras MD Attending Provider Hiwot Fisher MD Primary Care Provider Anatoliy Soto MD Attending Provider Hiwot Fisher MD Primary Care Provider Anatoliy Soto MD Attending Provider Hiwot Fisher MD Primary Care Provider Anatoliy Soto MD Attending Provider Conrado Franklin DO Emergency Provider Hiwot Fisher MD Primary Care Provider Trung Porras MD Attending Provider Anatoliy Soto MD Attending Provider Conrado Franklin DO Emergency Provider Phillip BARRERA, Hiwot Primary Care Provider EVELIA AGUILAR Attending Unavailable Hiwot Fisher MD Primary Care Provider [phone] Reece Nails APRN Attending Provider Hiwot Fisher MD Attending Provider [phone] Reece Nails Admitting Unavailable Reece Nails Attending Unavailable Trung Porras II Attending Unavailsilvio Porras II, Trung Tam Admitting UnavailHiwot Petersen Primary Care Unavailable Trung Porras II Attending Unavailsilvio Porras II, Trung Tam Admitting UnavailHiwot Petersen Primary Care Unavailable Conrado Franklin Admitting Unavailable Conrado Franklin Attending Unavailable Hiwot Fisher Primary Care Unavailable Allergies Allergy Classification Reported Allergen(s) Allergy Type Date of Onset Reaction(s) Facility (1 source) Latex Drug allergy (disorder) 12-04-19 16 [facility] Repository (2 sources) Erythromycin Drug Allergy 10-28-19 14 Unknown [facility] Other (14 sources) erythromycin base Allergy to substance 01-27-20 24 [facility] Comment on above: Onset Date: 10/28/19 14 (14 sources) band aid adhesive Propensity to adverse reactions 11-06-19 21 Redness of Skin [facility] Medications Current Medications Medication Drug Class(es) Dates Sig (Normalized) Sig (Original) [id number] 200 actuat albuterol 0.09 mg/actuat metered dose inhaler (20 sources) beta2-Adrenergic Agonist Start: 08-31-2024 take 1 puff(s) by inhalation every four to six hours as needed Albuterol Sulfate 90 mcg/actuation HFA aerosol inhaler Active 2 PUFF INHALATION EVERY 4-6 HOURS as needed for bronchospasm 3 August 31, 2024 1:00am Complies with drug therapy Start: 09-08-2019 End: 08-31-2024 Albuterol Sulfate (Ventolin Hfa) 90 mcg/actuation HFA aerosol inhaler Discontinued 2 INH INHALATION every 6 to 8 hours as needed for shortness of breath or wheezing August 30, 2024 11:18am August 31, 2024 1:56pm Albuterol Sulfate 90 mcg/actuation HFA aerosol inhaler (2 sources) Start: 08-31-2024 take 1 puff(s) by inhalation every four to six hours as needed Albuterol Sulfate 90 mcg/actuation HFA aerosol inhaler Active 2 PUFF INHALATION EVERY 4-6 HOURS as needed for bronchospasm 3 August 31, 2024 1:00am Start: 08-31-2024 take 1 puff(s) by in halation every four to six hours as needed Albuterol Sulfate 90 mcg/actuation HFA aerosol inhaler Active 2 PUFF INHALATION EVERY 4-6 HOURS as needed for bronchospasm August 31, 2024 12:00am 24 hr buPROPion hydrochloride 300 mg extended release oral tablet (20 sources) Aminoketone Start: 01-27-2024 take 1 tablet by mouth once daily in the morning Bupropion Hcl 300 mg tablet extended release 24 hr Active 300 MG PO Every morning January 27, 2024 12:00am Complies with drug therapy Start: 11-08-2020 take 1 tablet by rafiq th once daily in the morning Bupropion Hcl 150 mg Tablet Extended Release 24 Hr Active 150 MG PO Every morning November 08, 2020 12:00am Complies with drug therapy cephalexin 500 mg oral capsule (3 sources) Cephalosporin Antibacterial Start: 03-02-2025 take 1 capsule by mouth twice daily Cephalexin 500 mg capsule Active 500 MG PO Twice daily March 02, 2025 12:00am Complies with drug therapy cloNIDine hydrochloride 0.2 mg oral tablet (10 sources) Central alpha-2 Adrenergic Agonist Start: 10-18-2024 End: 12-15-2024 take 1 tablet by mouth twice daily Clonidine Hcl 0.2 mg tablet Active 0.2 MG PO Twice daily 180 December 15, 2024 2:08pm Complies with drug therapy Start: 09-20-2024 End: 10-18-2024 take 1 tablet by mouth twice daily Clonidine Hcl 0.1 mg tablet Discontinued 0.1 MG PO Twice daily 60 September 20, 2024 1:00am October 18, 2024 9:38am fenofibrate 160 mg oral tablet (20 sources) Peroxisome Proliferator Receptor alpha Agonist Start: 02-25-2024 take 1 tablet by mouth once daily Fenofibrate Active 0 .ROUTE .COMPLEX February 25, 2024 9:41am TAKE 1 TABLET BY MOUTH DAILY Start: 12-24-2023 End: 02-25-2024 take 1 tablet by mouth once daily Fenofibrate 160 mg tablet Active 0 .ROUTE .COMPLEX February 25, 2024 9:41am TAKE 1 TABLET BY MOUTH DAILY Complies with drug therapy Start: 12-24-2023 End: 02-25-2024 take 1 tablet by mouth once daily Fenofibrate Discontinued 0 .ROUTE .COMPLEX December 24, 2023 10:34am February 25, 2024 9:41am TAKE 1 TABLET BY MOUTH DAILY Start: 12-24-2023 take 1 tablet by rafiq th once daily Fenofibrate Active 0 .ROUTE .COMPLEX 90 December 24, 2023 10:34am TAKE 1 TABLET BY MOUTH DAILY Start: 09-08-2019 End: 12-24-2023 take 1 tablet by mouth once daily Fenofibrate 160 mg tablet Discontinued 160 MG PO Daily October 21, 2023 3:18pm December 24, 2023 10:34am fluconazole 100 mg oral tablet (3 sources) Azole Antifungal Start: 03-02-2025 Fluconazole 1 00 mg tablet Active 100 MG PO Daily March 02, 2025 12:00am Take 1 tablet today and may repeat in 3 days if necessary Complies with drug therapy FLUoxetine 20 mg oral capsule (20 sources) Serotonin Reuptake Inhibitor Start: 11-08-2020 take 3 capsules by mouth once daily Fluoxetine 20 mg Capsule Active 60 MG PO Daily November 08, 2020 12:00am Complies with drug therapy Start: 11-08-2020 take 60 mg by mouth once daily Fluoxetine Active 60 MG PO Daily November 08, 2020 12:00am Start: 09-08-2019 End: 11-08-2020 take 1 capsule by mouth once daily Fluoxetine (Prozac) 40 mg Capsule Discontinued 40 MG PO Daily September 08, 2019 1:00am November 08, 2020 10:56am [facility] PROzac 20 MG 1 capsule in the morning Orally Once a day Active lisinopril 40 mg oral tablet (20 sources) Angiotensin Converting Enzyme Inhibitor Start: 02-25-2024 take 1 tablet by mouth once daily Lisinopril Active 0 .ROUTE .COMPLEX February 25, 2024 9:41am TAKE 1 TABLET BY MOUTH DAILY Start: 12-24-2023 End: 02-25-2024 take 1 tablet by mouth once daily Lisinopril 40 mg tablet Active 0 .ROUTE .COMPLEX February 25, 2024 9:41am TAKE 1 TABLET BY MOUTH DAILY Complies with drug therapy Start: 12-24-2023 End: 02-25-2024 take 1 tablet by mouth once daily Lisinopril Discontinued 0 .ROUTE .COMPLEX December 24, 2023 10:34am February 25, 2024 9:41am TAKE 1 TABLET BY MOUTH DAILY Start: 12-24-2023 take 1 tablet by [facility] once daily Lisinopril Active 0 .ROUTE .COMPLEX December 24, 2023 10:34am TAKE 1 TABLET BY MOUTH DAILY Start: 09-08-2019 End: 12-24-2023 take 1 tablet by mouth once daily Lisinopril 40 mg tablet Discontinued 40 MG PO Daily October 21, 2023 3:18pm December 24, 2023 10:34am [facility]four hours Lisinopril 20 MG 2 tablets Orally daily for 90 days Active meloxicam 15 mg oral tablet (11 sources) Nonsteroidal Anti-inflammatory Drug Start: 07-20-2024 End: 03-05-2025 take 1 tablet by mouth once daily as needed 24 hr metoprolol succinate 50 mg extended release oral tablet (20 sources) beta-Adrenergic Marichuy Start: 02-25-2024 take 1 tablet by mouth once daily Metoprolol Succinate 50 mg tablet extended release 24 hr Active 0 .ROUTE .COMPLEX 90 February 25, 2024 9:41am TAKE 1 TABLET BY MOUTH DAILY Complies with drug therapy Start: 09-08-2019 End: 02-25-2024 take 1 tablet by mouth once daily Metoprolol Succinate 50 mg tablet extended release 24 hr Discontinued 50 MG PO Daily October 04, 2023 4:41pm February 25, 2024 9:41am take 1 tablet by rafiq th once daily Metoprolol Succinate 50 MG 1 Tablet orally Daily Active Multivitamin preparation (10 sources) Start: 02-22-2024 take 1 tablet by mouth once daily Multivitamin Active 1 TAB PO Daily February 22, 2024 12:00am Multivitamin Act gracia Multivitamin tablet (10 sources) Start: 02-22-2024 take 1 tablet by mouth once da antwon Start: 02-22-2024 take 1 tablet by rafiq th once daily Multivitamin tablet Active 1 TAB PO Daily February 22, 2024 12:00am Complies with drug therapy Start: 02-22-2024 take 1 tablet by rafiq th once daily Multivitamin tablet Active 1 TAB PO Daily February 22, 2024 12:00am Start: 02-22-2024 take 1 tablet by rafiq th once daily Multivitamin tablet Active 1 TAB PO Daily February 21, 2024 11:00pm omeprazole 20 mg delayed release oral capsule (20 sources) Proton Pump Inhibitor Start: 08-31-2024 take 1 capsule by mouth once daily Omeprazole 20 mg capsule,delayed release(DR/EC) Active 20 MG PO Daily August 31, 2024 1:00am Complies with drug therapy Start: 11-02-2022 take 1 capsule by mo [facility] once daily Omeprazole 20 MG 1 capsule 30 minutes before morning meal Orally Once a day for 90 days Oct, Active Start: 09-08-2019 End: 08-31-2024 take 1 tablet by mouth once daily Omeprazole Magnesium (Prilosec Otc) 20 mg tablet,delayed release (DR/EC) Discontinued 20 MG PO Daily August 30, 2024 11:20am August 31, 2024 1:57pm take 2 tablets by mo [facility] once daily PriLOSEC OTC 20 MG 2 tablets Orally Once a day Active predniSONE 20 mg oral tablet (20 sources) Start: 08-06-2022 take 2 tablets by mouth every twenty-four hours predniSONE 20 MG 2 tablets Orally Once a day for 5 days Jul, Active Start: 09-08-2019 End: 11-05-2020 take 1 tablet by mouth once daily Prednisone 50 mg tablet Discontinued 50 MG PO Daily 5 September 08, 2019 1:00am November 05, 2020 2:37pm tiZANidine 4 mg oral tablet (8 sources) Central alpha-2 Adrenergic Agonist Start: 09-15-2024 End: 09-20-2024 take 1 tablet by mouth every eight hours as needed Tizanidine 4 mg tablet Active 4 MG PO Every 8 hours as needed for muscle spasticity 60 September 20, 2024 10:38am Complies with drug therapy {20 (nirmatrelvir 150 MG Oral Tablet) / [...] mg / clavulanate 125 mg oral tablet (20 sources) Penicillin-class Antibacterial Start: 01-27-2024 End: 02-28-2024 take 1 tablet by mouth twice daily Amoxicillin-Pot Clavulanate 875-125 mg tablet Discontinued 1 TAB PO Twice daily January [...] 2020 2:36pm ARIPiprazole 5 mg oral tablet (14 sources) Atypical Antipsychotic Start: 11-08-2020 End: 01-27-2024 take 1 tablet by mouth once daily at bedtime Aripiprazole 5 mg Tablet Discontinued 5 MG PO Daily at bedtime November 08, 2020 12:00am January 27, 2024 2:19pm brexpiprazole 2 mg oral tablet (14 sources) Atypical Antipsychotic Start: 11-05-2020 End: 11-08-2020 take 1 tablet by mouth once daily Brexpiprazole (Rexulti) 2 mg Tablet Discontinued 2 MG PO Daily November 05, 2020 12:00am November 08, 2020 10:56am doxycycline hyclate 100 mg oral capsule (20 sources) Tetracycline-class Drug Start: 02-28-2024 End: 07-20-2024 take 1 capsule by mouth twice daily Doxycycline Hyclate 100 mg capsule Discontinued 100 MG PO Twice daily 29 01March 27, 2024 3:45pm July 20, 2024 9:13am DULoxetine 60 mg delayed release oral capsule (20 sources) Serotonin and Norepinephrine Reuptake Inhibitor Start: [...] Not-Taking hydrOXYzine pamoate 50 mg oral capsule (14 sources) Antihistamine Start: 11-08-2020 End: 01-27-2024 take 1 capsule by mouth every six hours as needed for anxiety Hydroxyzine Pamoate 50 mg Capsule Discontinued 50 MG PO Q6H as needed for Anxiety 40 November 08, 2020 12:00am January 27, 2024 2:21pm methylPREDNISolone 4 mg oral tablet (20 sources) Corticosteroid Start: 08-30-2024 End: 10-18-2024 Methylprednisolone 4 mg tablets,dose pack Discontinued 0 PO per package directions August 30, 2024 1:00am October 18, 2024 9:45am PO PER PKG DIR for 6 days Start: 03-27-2024 End: 07-20-2024 Methylprednisolone 4 mg tabl ets,dose pack Discontinued 0 PO per package directions March 27, 2024 12:00am July 20, 2024 9:13am PO PER PKG DIR for 6 days Start: 03-27-2024 Methylpredniso lone Active 0 PO per package directions March 27, 2024 12:00am PO PER PKG DIR for 6 days Start: 01-27-2024 End: 02-28-2024 Methylprednisolone 4 mg tabl ets,dose pack Discontinued 0 PO per package directions January 27, 2024 12:00am February 28, 2024 5:16pm PO PER PKG DIR for 6 days Start: 01-27-2024 End: 02-28-2024 Methylprednisolone Discontin ued 0 PO per package directions January 27, 2024 12:00am February 28, 2024 5:16pm PO PER PKG DIR for 6 days Start: 01-27-2024 Methylpredniso lone Active 0 PO per package directions January 27, 2024 12:00am PO PER PKG DIR for 6 days Start: 09-08-2019 End: 11-05-2020 Methylprednisolone 4 mg Tabl ets,Dose Pack Discontinued 0 .ROUTE .COMPLEX September 08, 2019 1:00am November 05, 2020 2:37pm on day 3 as of 09/08/2019 Start: 09-08-2019 End: 11-05-2020 Methylprednisolone 4 mg Tabl ets,Dose Pack Discontinued 0 .ROUTE .COMPLEX September 08, 2019 12:00am November 05, 2020 1:37pm on day 3 as of 09/08/2019 Start: 09-08-2019 End: 11-05-2020 Methylprednisolone Discontin ued 0 .ROUTE .COMPLEX September 08, 2019 1:00am November 05, 2020 2:37pm on day 3 as of 09/08/2019 Omeprazole Magnesium (Prilosec Otc) 20 mg Tablet,Delayed Release (Dr/Ec) (11 sources) Start: 09-08-2019 End: 07-03-2024 take 1 tablet by mouth once daily Omeprazole Magnesium (Prilosec Otc) 20 mg Tablet,Delayed Release (Dr/Ec) Discontinued 20 MG PO Daily September 08, 2019 1:00am July 03, 2024 4:11pm Start: 09-08-2019 End: 07-03-2024 take 1 tablet by mouth once daily Omeprazole Magnesium (Prilosec Otc) 20 mg Tablet,Delayed Release (Dr/Ec) Discontinued 20 MG PO Daily September 08, 2019 12:00am July 03, 2024 3:11pm Start: 09-08-2019 take 1 tablet by rafiq th once daily Omeprazole Magnesium (Prilosec Otc) 20 mg Tablet,Delayed Release (Dr/Ec) Active 20 MG PO Daily September 08, 2019 1:00am Omeprazole Magnesium (Prilosec Otc) 20 mg tablet,delayed release (DR/EC) (10 sources) Start: 08-30-2024 End: 08-31-2024 take 1 tablet by mouth once daily Omeprazole Magnesium (Prilosec Otc) 20 mg tablet,delayed release (DR/EC) Discontinued 20 MG PO Daily August 30, 2024 11:20am August 31, 2024 1:57pm Start: 08-30-2024 End: 08-31-2024 take 1 tablet by mouth once daily Omeprazole Magnesium (Prilosec Otc) 20 mg tablet,delayed release (DR/EC) Discontinued 20 MG PO Daily August 30, 2024 10:20am August 31, 2024 12:57pm Start: 08-30-2024 take 1 tablet by rafiq th once daily Omeprazole Magnesium (Prilosec Otc) 20 mg tablet,delayed release (DR/EC) Active 20 MG PO Daily August 30, 2024 10:20am Start: 07-03-2024 End: 08-30-2024 take 1 tablet by mouth once daily Omeprazole Magnesium (Prilosec Otc) 20 mg tablet,delayed release (DR/EC) Discontinued 20 MG PO Daily July 03, 2024 4:11pm August 30, 2024 11:20am Start: 07-03-2024 End: 08-30-2024 take 1 tablet by mouth once daily Omeprazole Magnesium (Prilosec Otc) 20 mg tablet,delayed release (DR/EC) Discontinued 20 MG PO Daily July 03, 2024 3:11pm August 30, 2024 10:20am Start: 07-03-2024 take 1 tablet by rafiq th once daily Omeprazole Magnesium (Prilosec Otc) 20 mg tablet,delayed release (DR/EC) Active 20 MG PO Daily July 03, 2024 3:11pm traZODone hydrochloride 50 mg oral tablet (14 sources) Serotonin Reuptake Inhibitor Start: 11-08-2020 End: 01-27-2024 take 1 tablet by mouth once daily at bedtime as needed Trazodone 50 mg Tablet Discontinued 50 MG PO Daily at bedtime as needed for Insomnia November 08, 2020 12:00am January 27, 2024 2:20pm Problems Active Problems Problem Classification Problem Date Documented Date Episodic/Chronic Asthma (20 sources) Exacerbation of moderate persistent asthma; Translations: [Moderate persistent asthma with (acute) exacerbation] Chronic Cardiac dysrhythmias (5 sources) Palpitations; Translations: [Palpitations] 09-13-2024 Episodic Esophageal disorders (12 sources) Gastroesophageal reflux disease without esophagitis; Translations: [Gastro-esophageal reflux disease without esophagitis] 08-31-2024 Chronic Essential hypertension (8 sources) Hypertensive disorder; Translations: [Essential (primary) hypertension] 09-13-2024 Chronic Mood disorders (14 sources) Major depressive disorder; Translations: [Major depressive disorder, single episode, unspecified] 11-05-2020 Chronic Nonmalignant breast conditions (14 sources) Breast lump; Translations: [Unspecified lump in the right breast, unspecified quadrant] 05-07-2020 Episodic Osteoarthritis (20 sources) Osteoarthritis of left knee joint; Translations: [Unilateral primary osteoarthritis, left knee] Onset: 08-01-2024 07-20-2024 Chronic Other connective tissue disease (5 sources) Tendinitis of left rotator cuff; Translations: [Other shoulder lesions, left shoulder] 09-13-2024 Episodic Other connective tissue disease (3 sources) Pain in left lower limb; Translations: [Pain in left leg] 10-18-2024 Episodic Other ear and sense organ disorders (6 sources) Sensorineural hearing loss, bilateral; Translations: [Sensorineural hearing loss, bilateral] 05-30-2024 Chronic Other nutritional; endocrine; and metabolic disorders (19 sources) Body mass index 40+ - severely obese; Translations: [Body mass index (BMI) 45.0-49.9, adult] 07-20-2024 Chronic Other nutritional; endocrine; and metabolic disorders (2 sources) Obese class III; Translations: [Class 3 obesity] 03-05-2025 Chronic Other screening for suspected conditions (not mental disorders or infectious disease) (20 sources) Encounter for screening mammogram for malignant neoplasm of breast; Translations: [Patient encounter status] Onset: 01-26-2022 02-24-2024 Episodic Other upper respiratory infections (14 sources) Sinusitis; Translations: [Chronic sinusitis, unspecified] Chronic Other upper respiratory infections (14 sources) Upper respiratory infection; Translations: [Acute upper respiratory infection, unspecified] 09-08-2019 Episodic Otitis media and related conditions (1 source) Unspecified nonsuppurative otitis media, bilateral Episodic Residual codes; unclassified (3 sources) Family history of malignant neoplasm of breast; Translations: [Family history of malignant neoplasm of breast] Onset: 01-26-2022 02-23-2024 Episodic Residual codes; unclassified (12 sources) Family history of breast cancer; Translations: [Family history of malignant neoplasm of breast] 02-24-2024 Episodic Skin and subcutaneous tissue infections (2 sources) Cellulitis, unspecified; Translations: [Cellulitis and abscess of unspecified sites] 02-28-2024 Episodic Spondylosis; intervertebral disc disorders; other back problems (3 sources) Muscle spasm of cervical muscle of neck; Translations: [Muscle spasm of back] 09-20-2024 Episodic Superficial injury; contusion (12 sources) Insect bite of lower limb; Translations: [Insect bite (nonvenomous), unspecified lower leg, initial encounter] 03-27-2024 Episodic Unclassified (3 sources) CONTACT W/AND (SUSP) EXPOS COVID-19; Translations: [CONTACT W/AND (SUSP) EXPOS COVID-19] Onset: 07-24-2021 Unclassified (2 sources) Patient encounter status; Translations: [Z12.11 - Encounter for screening for malignant neoplasm of colon] Urinary tract infections (2 sources) Urinary tract infectious disease; Translations: [Urinary tract infection, site not specified] 03-02-2025 Episodic Past or Other Problems Problem Classification Problem Date Documented Da te Episodic/Chronic Immunizations and screening for infectious disease (4 sources) Encounter for immunization; Translations: [ENCOUNTER FOR IMMUNIZATION] Onset: 05-14-2021 Episodic Other non-traumatic joint disorders (14 sources) Pain in left knee; Translations: [Left knee pain] Onset: 07-20-2024 07-13-2024 Episodic Unclassified (1 source) CONTACT W/AND (SUSP) EXPOS COVID-19; Translations: [CONTACT W/AND (SUSP) EXPOS COVID-19] Onset: 07-21-2021 Viral infection (2 sources) COVID-19 Results Test Name Value Interpretation Reference Range Facility No Panel InformationOrdered By: Reece Nails on 03-02-2025 Aleah albicans (MARICRUZ) Negative Negative [facility] Comment on above: This test was develo ped and its performance characteristicsdetermined by [email or web address]. It has not been cleared orapproved by the Food and Drug Administration. Aleah glabrata (MARICRUZ) Negative Negative [facility] Comment on above: This test was develo ped and its performance characteristicsdetermined by [email or web address]. It has not been cleared orapproved by the Food and Drug Administration. Trichomonas vaginalis (MARICRUZ) Negative Negative [facility] Comment on above: Performed at: [address] [id number] Director: Ellen Davis MD, Phone: [phone] Urine Cultureon 03-02-2025 Bacteria identified Cx Nom (U) ORGANISM: Escherichia coli (O:ESCCOL) [place] Count 75,000 Aerobic CHASIDY Charge ([id number]) SUSCEPTIBILITY ORGANISM: O:ESCCOL ANTIBIOTIC INTERPRETATION CHASIDY Amikacin S <16 Amoxacillin/K Clavulanate S <8 Ampicillin S <8 Ampicillin/Sulbactam S <4 Aztreonam S <4 Cefazolin S <2 Cefepime S <2 Ceftazidime S <1 Ceftazidime/Avibactam S <4 Ceftolozane/Tazobactam S <2 Ceftriaxone S <1 Cefuroxime S <4 Ciprofloxacin S <0.25 Ertapenem S <0.5 Gentamicin I 8 Levofloxacin S <0.5 Meropenem S <1 Meropenem/Vaborbactam S <2 Nitrofurantoin S <32 Piperacillin/Tazobactam S <8 Tetracycline R >8 Tigecycline S <2 Tobramycin I 8 Trimethoprim/Sulfamethoxazo le S <0.5 S = SUSCEPTIBLE I = INTERMEDIATE R = RESISTANT BLANK = DATA NOT AVAILABLE, OR DRUG NOT ADVISABLE OR TESTED R* = RESISTANCE DUE TO EXTENDED SPECTRUM BETA-LACTAMASES ESBL = EXTENDED SPECTRUM BETA-LACTAMASE TFG = THYMIDINE-DEPENDENT STRAIN LINUS = BETA-LACTAMASE POSITIVE IB = INDUCIBLE BETA-LACTAMASE. APPEARS IN PLACE OF 'S' WITH SPECIES KNOWN TO POSSESS INDUCIBLE BETA-LACTAMASES. POTENTIALLY THEY MAY BECOME RESISTANT TO ALL B-LACTAM DRUGS. PERFORMED BY: [facility] [address] [place] [address] PATHOLOGIST MARINE SPECIALIST RANDY MUNOZ M.D. Normal [facility] Comment on above: Performed By: #### C UU ####[facility] [id number] [place] [address] [facility] Urine cultureOrdered By: Berry Nails on 03-02-2025 Bacteria identified Cx Nom (U) Escherichia coli Abnormal [facility] Vaginal fluid Atopobium vagi kris DNA detection by probe and target amplification methoOrdered By: Reece Nails on 03-02-2025 A. vaginae DNA MARICRUZ+probe Ql (Vag fld) Low - 0 Score . [facility] Comment on above: This test was develo ped and its performance characteristicsdetermined by [email or web address]. It has not been cleared orapproved by the Food and Drug Administration. Vaginal fluid Megasphaera sp ecies type 1 DNA detection by probe and target amplificatOrdered By: Reece Nails on 03-02-2025 Megasphaera sp type 1 DNA MARICRUZ+probe Ql (Vag fld) Low - 0 Score . [facility] Comment on above: This test was develo ped and its performance characteristicsdetermined by [employer]. It has not been cleared orapproved by the Food and Drug Administration.Calculate total score by adding the 3 individual bacterialvaginosis (BV) marker scores together. Total score isinterpreted as follows:Total score 0-1: Indicates the absence of BV.Total score 2: Indeterminate for BV. Additional clinical data should be evaluated to establish a diagnosis.Total score 3-6: Indicates the presence of BV. Vaginal fluid bacterial vagi nosis associated bacterium 2 DNA detection by probe and tOrdered By: Reece Nails on 03-02-2025 Bacterial vaginosis associated bacterium 2 DNA MARICRUZ+probe Ql (Vag fld) Low - 0 Score . [facility] Comment on above: This test was develo ped and its performance characteristicsdetermined by [facility]. It has not been cleared orapproved by the Food and Drug Administration. Vaginitis (VG)on 03-02-2025 Atopobium Vaginae Low - 0 Normal . [facility] Comment on above: Result Comment: This test was developed and its performance characteristics determined by [facility]. It has not been cleared or approved by the Food and Drug Administration. Performed By: #### V AGINITIS #### [facility] , BVAB2 Low - 0 Normal . [facility] Comment on above: Result Comment: This test was developed and its performance characteristics determined by [facility]. It has not been cleared or approved by the Food and Drug Administration. Performed By: #### V AGINITIS #### [facility] , Aleah Albicans, MARICRUZ Negative Normal Negative [facility] Comment on above: Result Comment: This test was developed and its performance characteristics determined by [facility]. It has not been cleared or approved by the Food and Drug Administration. Performed By: #### V AGINITIS #### [facility] , Aleah Glabrata, MARICRUZ Negative Normal Negative [facility] Comment on above: Result Comment: This test was developed and its performance characteristics determined by [facility]. It has not been cleared or approved by the Food and Drug Administration. PERFORMED BY: [facility] [place] [address] PATHOLOGIST MARINE SPECIALIST RANDY MUNOZ M.D. Performed By: #### V AGINITIS #### [facility] , Megasphaera Low - 0 Normal . [facility] Comment on above: Result Comment: This test was developed and its performance characteristics determined by [facility]. It has not been cleared or approved by the Food and Drug Administration. Calculate total score by adding the 3 individual bacterial vaginosis (BV) marker scores together. Total score is interpreted as follows: Total score 0-1: Indicates the absence of BV. Total score 2: Indeterminate for BV. Additional clinical data should be evaluated to establish a diagnosis. Total score 3-6: Indicates the presence of BV. Performed By: #### V AGINITIS #### [facility] , Tric Vag MARICRUZ Negative Normal Negative [facility] Comment on above: Result Comment: Perf ormed at: = - [facility] [id number] Back [employer] Washer: Ellen Davis MD, Phone: [phone] Performed By: #### V AGINITIS #### [facility] , B-Type Natriuretic Peptideon 09-13-2024 Natriuretic peptide B (Bld) [Mass/Vol] 16.0 pg/mL Normal 5-100 [facility] Comment on above: Result Comment: PERF ORMED BY: [place] [address] PATHOLOGIST MARINE SPECIALIST KAYDEN ROSADO M.D. Performed By: #### C BC, BNP, HS TROP, CK, PT, BMP #### [address] Basic Metabolic Panelon 08-20 Anion gap [Moles/Vol] 12.9 mmol/L Normal 6.0-15.0 [facility] e [facility] Comment on above: Performed By: #### C BC, BNP, HS TROP, CK, PT, BMP #### [address] Calcium [Mass/Vol] 9.6 mg/dL Normal 8.6-10.3 [facility] Comment on above: Performed By: #### C BC, BNP, HS TROP, CK, PT, BMP #### [facility] [address] [place] [address] [place] Chloride [Moles/Vol] 104 mmol/L Normal 98-107 [facility] Comment on above: Performed By: #### C BC, BNP, HS TROP, CK, PT, BMP #### [facility] [address] CO2 [Moles/Vol] 23.9 mmol/L Normal 21.0-31.0 [facility] Comment on above: Performed By: #### C BC, BNP, HS TROP, CK, PT, BMP #### [facility] [address] Creatinine [Mass/Vol] 0.58 mg/dL Low 0.60-1.20 [facility] Comment on above: Performed By: #### C BC, BNP, HS TROP, CK, PT, BMP #### [place] [address] [place] Creatinine Clr Calc Pharmacy 158.70 Normal [facility] Comment on above: Result Comment: PERF ORMED BY: [place] [address] PATHOLOGIST MARINE SPECIALIST KAYDEN ROSADO M.D. Performed By: #### C BC, BNP, HS TROP, CK, PT, BMP #### [address] GFR/1.73 sq M.predicted MDRD (S/P/Bld) [Vol rate/Area] mL/min/{1.73_m2} Normal [facility] Comment on above: Performed By: #### C BC, BNP, HS TROP, CK, PT, BMP #### [place] [address] [place] Glucose [Mass/Vol] 137 mg/dL High 70-100 [facility] Comment on above: Result Comment: [place] Glucose Reference Range is dependent on time and content of last meal. Glucose of more than 200 mg/dL in a nonstressed, ambulatory subject supports the diagnosis of Diabetes Mellitus. ADA recommended reference range Performed By: #### C BC, BNP, HS TROP, CK, PT, BMP #### [facility] [address] Potassium [Moles/Vol] 3.8 mmol/L Normal 3.5-5.1 [facility] Comment on above: Performed By: #### C BC, BNP, HS TROP, CK, PT, BMP #### [facility] [address] Sodium [Moles/Vol] 137 mmol/L Normal 136-145 [facility] Comment on above: Performed By: #### C BC, BNP, HS TROP, CK, PT, BMP #### [facility] [address] Urea nitrogen [Mass/Vol] 10 mg/dL Normal 7-25 [facility] Comment on above: Performed By: #### C BC, BNP, HS TROP, CK, PT, BMP #### [facility] [address] Basophils Auto (Bld) [#/Vol] Ordered By: PROVIDER TEMP on 09-13-2024 Basophils (Bld) [#/Vol] Automated basophil count 0.0-0.2 [facility] Basophils/100 WBC Auto (Bld) Ordered By: PROVIDER TEMP on 09-13-2024 Basophils/100 WBC (Bld) Automated basophil % . [facility] Calcium [Mass/volume] in Ser um or PlasmaOrdered By: PROVIDER TEMP on 09-13-2024 Calcium [Mass/Vol] Calcium [Mass/volume ] in Serum or Plasma 8.6-10.3 [facility] Carbon dioxide, total [Moles /volume] in Serum or PlasmaOrdered By: PROVIDER TEMP on 09-13-2024 CO2 [Moles/Vol] Carbon dioxide, tota l [Moles/volume] in Serum or Plasma 21.0-31.0 [facility] Chloride [Moles/volume] in S morgan or PlasmaOrdered By: PROVIDER TEMP on 09-13-2024 Chloride [Moles/Vol] Chloride [Moles/vol ume] in Serum or Plasma 98-107 [facility] Complete Blood Count Auto Di ffon 09-13-2024 Basophils (Bld) [#/Vol] 0.1 10*3/uL Normal 0.0-0.2 [facility] Comment on above: Result Comment: PERF ORMED BY: [place] [address] PATHOLOGIST MARINE SPECIALIST KAYDEN ROSADO M.D. Performed By: #### C BC, BNP, HS TROP, CK, PT, BMP #### [address] Basophils/100 WBC (Bld) 0.8 % Normal . [facility] Comment on above: Performed By: #### C BC, BNP, HS TROP, CK, PT, BMP #### [address] Eosinophils (Bld) [#/Vol] 0.1 10*3/uL Normal 0.0-0.45 [facility] Comment on above: Performed By: #### C BC, BNP, HS TROP, CK, PT, BMP #### [address] Eosinophils/100 WBC (Bld) 0.9 % Normal . [facility] Comment on above: Performed By: #### C BC, BNP, HS TROP, CK, PT, BMP #### [address] Erythrocyte distribution width (RBC) [Ratio] 12.9 % Normal 11.9-15.3 [facility] Comment on above: Performed By: #### C BC, BNP, HS TROP, CK, PT, BMP #### [address] Hematocrit (Bld) [Volume fraction] 42.1 % Normal 34.0-46.4 [facility] Comment on above: Performed By: #### C BC, BNP, HS TROP, CK, PT, BMP #### [address] Hemoglobin (Bld) [Mass/Vol] 14.1 g/dL Normal 11.8-15.4 [facility] Comment on above: Performed By: #### C BC, BNP, HS TROP, CK, PT, BMP #### [address] Lymphocytes (Bld) [#/Vol] 1.6 10*3/uL Normal 1.00-4.8 [facility] Comment on above: Performed By: #### C BC, BNP, HS TROP, CK, PT, BMP #### [address] Lymphocytes/100 WBC (Bld) 22.4 % Normal . [facility] Comment on above: Performed By: #### C BC, BNP, HS TROP, CK, PT, BMP #### [address] MCH (RBC) [Entitic mass] 29.0 pg Normal 24.7-34.3 [facility] Comment on above: Performed By: #### C BC, BNP, HS TROP, CK, PT, BMP #### [address] MCV (RBC) [Entitic vol] 86.8 fL Normal 80-100 [facility] Comment on above: Performed By: #### C BC, BNP, HS TROP, CK, PT, BMP #### [address] Mean Corpuscular HGB Conc 33.5 g/dL Normal 32.0-35.0 [facility] Comment on above: Performed By: #### C BC, BNP, HS TROP, CK, PT, BMP #### [address] Monocytes (Bld) [#/Vol] 0.4 10*3/uL Normal 0.0-0.8 [facility] Comment on above: Performed By: #### C BC, BNP, HS TROP, CK, PT, BMP #### [address] Monocytes/100 WBC (Bld) 19.12 % Normal 0.00-20.00 [facility] Comment on above: Performed By: #### C BC, BNP, HS TROP, CK, PT, BMP #### [address] Monocytes/100 WBC (Bld) 5.2 % Normal . [facility] Comment on above: Performed By: #### C BC, BNP, HS TROP, CK, PT, BMP #### [address] Neutrophils (Bld) [#/Vol] 5.2 10*3/uL Normal 1.8-7.7 [facility] Comment on above: Performed By: #### C BC, BNP, HS TROP, CK, PT, BMP #### [address] Neutrophils/100 WBC (Bld) 70.7 % Normal . [facility] Comment on above: Performed By: #### C BC, BNP, HS TROP, CK, PT, BMP #### [address] NRBC% 0.2 /100{WBC} Normal 0-0.5 [facility] Comment on above: Performed By: #### C BC, BNP, HS TROP, CK, PT, BMP #### [address] Platelet mean volume (Bld) [Entitic vol] 8.2 fL Normal 6.3-10.7 [facility] Comment on above: Performed By: #### C BC, BNP, HS TROP, CK, PT, BMP #### [address] Platelets (Bld) [#/Vol] 281 10*3/uL Normal 150-450 [facility] Comment on above: Performed By: #### C BC, BNP, HS TROP, CK, PT, BMP #### [address] RBC (Bld) [#/Vol] 4.85 10*6/uL Normal 3.60-5.00 [facility] Comment on above: Performed By: #### C BC, BNP, HS TROP, CK, PT, BMP #### [address] WBC (Bld) [#/Vol] 7.3 10*3/uL Normal 3.8-11.6 [facility] Comment on above: Performed By: #### C BC, BNP, HS TROP, CK, PT, BMP #### [address] Creatine Kinaseon 09-13-2024 CK [Catalytic activity/Vol] 96 U/L Normal 30-223 [facility] Comment on above: Performed By: #### C BC, BNP, HS TROP, CK, PT, BMP #### [address] Creatine kinase [Enzymatic a ctivity/volume] in Serum or PlasmaOrdered By: PROVIDER TEMP on 09-13-2024 CK [Catalytic activity/Vol] Creatine kinase [Enzymatic activity/volume] in Serum or Plasma [facility] Creatinine [Mass/volume] in Serum or PlasmaOrdered By: PROVIDER TEMP on 09-13-2024 Creatinine [Mass/Vol] Creatinine [Mass/v olume] in Serum or Plasma Low 0.60-1.20 [facility] ECG 12 lead ECGon 09-13-2024 ECG 12 lead ECG [facility] [place] [address] Electrocardiograph Report Signed Patient: Evelia Frances MR#: [id number] : 1965 Acct:[id number] Age/Sex: 59 / F ADM Date: 09/13/24 Loc: ER Room: Type: [facility] ER Attending Dr: Ordering Provider: Conrado Franklin DO Date of Service: 09/13/24 ECG/ECG 12 lead ECG: Arrhythmia/Palpitations Copies to: Test Reason : Blood Pressure : */* mmHG Vent. Rate : 102 BPM Atrial Rate : 102 BPM P-R Int : 148 ms QRS Dur : 88 ms QT Int : 372 ms P-R-T Axes : 52 23 48 degrees QTcB Int : 484 ms Sinus tachycardia Nonspecific ST abnormality Abnormal ECG When compared with ECG of 08-Sep-2019 09:25, No significant change was found Confirmed by CONRADO FRANKLIN DO ([id number]) on 09/14/2024 12:07:21 AM Referred By: Electronically Signed By: CONRADO FRANKLIN DO Transcribed By: MUS Signed By Conrado Franklin DO 0007 Normal [facility] Eosinophils Auto (Bld) [#/Vo l]Ordered By: PROVIDER TEMP on 09-13-2024 Eosinophils (Bld) [#/Vol] Automated eosinophil count 0.0-0.45 [facility] Eosinophils/100 WBC Auto (Bl d)Ordered By: PROVIDER TEMP on 09-13-2024 Eosinophils/100 WBC (Bld) Automated eosinophil % . [facility] Erythrocyte distribution wid th Auto (RBC) [Ratio]Ordered By: PROVIDER TEMP on 09-13-2024 Erythrocyte distribution width (RBC) [Ratio] Erythrocyte distribution width [Ratio] by Automated count 11.9-15.3 [facility] Glucose [Mass/volume] in Ser um or PlasmaOrdered By: PROVIDER TEMP on 09-13-2024 Glucose [Mass/Vol] Glucose [Mass/volume ] in Serum or Plasma High 70-100 [facility] Comment on above: ADA recommended refe rence rangeRandom Glucose Reference Range is dependent on time and content of last meal. Glucose of more than 200 mg/dL in a nonstressed, ambulatory subject supports the diagnosis of Diabetes Mellitus. Hematocrit Auto (Bld) [Volum e fraction]Ordered By: PROVIDER TEMP on 09-13-2024 Hematocrit (Bld) [Volume fraction] Hematocrit [Volume Fraction] of Blood by Automated count 34.0-46.4 [facility] Hemoglobin [Mass/volume] in BloodOrdered By: PROVIDER TEMP on 09-13-2024 Hemoglobin (Bld) [Mass/Vol] Hemoglobin [Mass/volume] in Blood 11.8-15.4 [facility] INR in Platelet poor plasma by Coagulation assayOrdered By: PROVIDER TEMP on 09-13-2024 INR Coag (PPP) [Relative time] INR in Platelet poor plasma by Coagulation assay [facility] Comment on above: INR Therapeutic Rang e A) Pre- and Peroperative OAT started two weeks before surgery. NOT HIP SURGERY: 1.5 - 2.5 HIP SURGERY: 2 - 3B) Primary and secondary prevention of venous THROMBOSIS: 2 - 3C) Active venous thrombosis, pulmonary embolismand prevention of recurrent venous thrombosis: 2 - 3D) Prevention of arterial thromboembolismincluding patients with mechanical heart valves: 3 - 4.5 Leukocytes [#/volume] correc lizzy for nucleated erythrocytes in Blood by Automated counOrdered By: PROVIDER TEMP on 09-13-2024 WBC corrected for nucl RBC Auto (Bld) [#/Vol] Leukocytes [#/volume] corrected for nucleated erythrocytes in Blood by Automated coun 3.8-11.6 [facility] Lymphocytes Auto (Bld) [#/Vo l]Ordered By: PROVIDER TEMP on 09-13-2024 Lymphocytes (Bld) [#/Vol] Lymphocytes [#/volume] in Blood by Automated count 1.00-4.8 [facility] Lymphocytes/100 WBC Auto (Bl d)Ordered By: PROVIDER TEMP on 09-13-2024 Lymphocytes/100 WBC (Bld) Lymphocytes/100 leukocytes in Blood by Automated count . [facility] MCH Auto (RBC) [Entitic mass ]Ordered By: PROVIDER TEMP on 09-13-2024 MCH (RBC) [Entitic mass] MCH [Entitic mass] by Automated count 24.7-34.3 [facility] MCHC Auto (RBC) [Mass/Vol]Or dered By: PROVIDER TEMP on 09-13-2024 MCHC (RBC) [Mass/Vol] MCHC [Mass/volume] by Automated count 32.0-35.0 [facility] MCV Auto (RBC) [Entitic vol] Ordered By: PROVIDER TEMP on 09-13-2024 MCV (RBC) [Entitic vol] MCV [Entitic volume] by Automated count 80-100 [facility] Monocyte distribution width [Entitic volume] in Blood by AutomatedOrdered By: PROVIDER TEMP on 09-13-2024 Monocyte distribution width Auto (Bld) [Entitic vol] Monocyte distribution width [Entitic volume] in Blood by Automated 0.00-20.00 [facility] Monocytes Auto (Bld) [#/Vol] Ordered By: PROVIDER TEMP on 09-13-2024 Monocytes (Bld) [#/Vol] Automated blood monocyte count 0.0-0.8 [facility] Monocytes/100 WBC Auto (Bld) Ordered By: PROVIDER TEMP on 09-13-2024 Monocytes/100 WBC (Bld) Automated monocyte % . [facility] Natriuretic peptide B [Mass/ Vol]Ordered By: PROVIDER TEMP on 09-13-2024 Natriuretic peptide B (Bld) [Mass/Vol] BNP ser/plas 5-100 [facility] Neutrophils Auto (Bld) [#/Vo l]Ordered By: PROVIDER TEMP on 09-13-2024 Neutrophils (Bld) [#/Vol] Neutrophils [#/volume] in Blood by Automated count 1.8-7.7 [facility] Neutrophils/100 WBC Auto (Bl d)Ordered By: PROVIDER TEMP on 09-13-2024 Neutrophils/100 WBC (Bld) Automated neutrophil % . [facility] No Panel InformationOrdered By: PROVIDER TEMP on 09-13-2024 Estimated GFR (CKD-EPI) > 60.0 mL/Min [facility] Creatinine Clearance (Chem 158.70 [facility] Nucleated erythrocytes [Pres ence] in Blood by Automated countOrdered By: PROVIDER TEMP on 09-13-2024 Nucleated RBC Auto Ql (Bld) Nucleated erythrocytes [Presence] in Blood by Automated count 0-0.5 [facility] Platelet mean volume Auto (B ld) [Entitic vol]Ordered By: PROVIDER TEMP on 09-13-2024 Platelet mean volume (Bld) [Entitic vol] Platelet mean volume [Entitic volume] in Blood by Automated count 6.3-10.7 [facility] Platelets Auto (Bld) [#/Vol] Ordered By: PROVIDER TEMP on 09-13-2024 Platelets (Bld) [#/Vol] Platelets [#/volume] in Blood by Automated count 150-450 [facility] Potassium [Moles/volume] in Serum or PlasmaOrdered By: PROVIDER TEMP on 09-13-2024 Potassium [Moles/Vol] Potassium [Moles/v olume] in Serum or Plasma 3.5-5.1 [facility] Prothrombin Time INRon 09-13 INR Coag (PPP) [Relative time] 1.0 {INR} Normal [facility] Comment on above: Result Comment: INR Therapeutic Range A) Pre- and Peroperative OAT started two weeks before surgery. NOT HIP SURGERY: 1.5 - 2.5 HIP SURGERY: 2 - 3 B) Primary and secondary prevention of venous THROMBOSIS: 2 - 3 C) Active venous thrombosis, pulmonary embolism and prevention of recurrent venous thrombosis: 2 - 3 D) Prevention of arterial thromboembolism including patients with mechanical heart valves: 3 - 4.5 PERFORMED BY: [place] [address] PATHOLOGIST MARINE SPECIALIST KAYDEN ROSADO M.D. Performed By: #### C BC, BNP, HS TROP, CK, PT, BMP #### [address] PT Coag (PPP) [Time] 11.5 s Normal 9.0-12.9 [facility] Comment on above: Result Comment: A matocrit value greater than 55% may lead to inaccurate results in coagulation testing. Patients having hematocrit values >55% require a special collection tube for coagulation studies. Please contact the laboratory at [phone] for redraw instructions. Performed By: #### C BC, BNP, HS TROP, CK, PT, BMP #### [address] Prothrombin time (PT)Ordered By: PROVIDER TEM on 09-13-2024 PT Coag (PPP) [Time] Prothrombin time (PT) 9.0- 12.9 [facility] Comment on above: A hematocrit value g reater than 55% may lead to inaccurate results in coagulation testing. Patients having hematocrit values >55% require a special collection tube for coagulation studies. Please contact the laboratory at [phone] for redraw instructions. RBC Auto (Bld) [#/Vol]Ordere d By: PROVIDER TEMP on 09-13-2024 RBC (Bld) [#/Vol] Erythrocytes [#/volu me] in Blood by Automated count 3.60-5.00 [facility] Serum or plasma anion gap de terminationOrdered By: PROVIDER TEMP on 09-13-2024 Anion gap [Moles/Vol] Serum or plasma an ion gap determination 6.0-15.0 [facility] Sodium [Moles/volume] in Ser um or PlasmaOrdered By: PROVIDER TEMP on 09-13-2024 Sodium [Moles/Vol] Sodium [Moles/volume ] in Serum or Plasma 136-145 [facility] Troponin I High Sensitivityo n 09-13-2024 Troponin I High Sensitivity <3 Normal 0-15 [facility] Comment on above: Result Comment: The Troponin units of report have been changed to meet the Chest Pain Accreditation requirement, element EC5.M1l2. Troponin units are changed from pg/ml to ng/L. Also, the decimal is removed and results are in whole numbers. PERFORMED BY: [facility] [address] [place] [address] PATHOLOGIST MARINE SPECIALIST KAYDEN ROSADO M.D. Performed By: #### C BC, BNP, HS TROP, CK, PT, BMP ####[facility] [id number] Troponin I.cardiac [Mass/vol ume] in Serum or Plasma by Detection limit <= 0.01 ng/Ordered By: PROVIDER TEMP on 09-13-2024 Troponin I.cardiac DL <= 0.01 ng/mL [Mass/Vol] Troponin I.cardiac [Mass/volume] in Serum or Plasma by Detection limit <= 0.01 ng/ 0-15 [facility] Comment on above: The Troponin units o f report have been changed to meet the Chest Pain Accreditation requirement, element EC5.M1l2. Troponin units are changed from pg/ml to ng/L. Also, the decimal is removed and results are in whole numbers. Urea nitrogen [Mass/volume] in Serum or PlasmaOrdered By: PROVIDER TEMP on 09-13-2024 Urea nitrogen [Mass/Vol] Urea nitrogen [Mass/volume] in Serum or Plasma 7- [facility] WBC Auto (Bld) [#/Vol]Ordere d By: PROVIDER TEMP on 09-13-2024 WBC (Bld) [#/Vol] Leukocytes [#/volume ] in Blood by Automated count 3.8-11.6 [facility] X-ray reportOrdered By: Yousif Nguyen on 09-13-2024 Study report [place] [id number] XRay Report Signed Patient: Evelia Frances MR#: [id number] : 1965 Acct:[id number] Age/Sex: 59 / F ADM Date: 5 Loc: ER Room: Type: PRE ER Attending Dr: Copies to: NORRIS PROVIDER~ Ordering Provider: NORRIS, PROVIDER Date of Service: 09/13/24 XR/XR chest 2V*: Arrhythmia/Palpitations Chest 2 views CLINICAL HISTORY: High blood pressure. Left shoulder/arm pain. COMPARISON: None FINDINGS: Heart normal size. Lungs are clear. No free air. XR/XR chest 2V* IMPRESSION: NO ACUTE CARDIOPULMONARY ABNORMALITY. Impression dictated by: Shadi Nguyen Jr., D.O.09/13/2024 1:10 PM Dictation Location: [place] [address] Transcribed By: [facility] 09/13/24 1310 Dictated By: Shadi Nguyen Jr, DO 09/13/24 1310 Signed By: 09/13/24 1310 [facility] XR chest 2V*on 09-13-2024 XR chest 2V* [place] [id number] XRay Report Signed Patient: Evelia Frances MR#: [id number] : 1965 Acct:[id number] Age/Sex: 59 / F ADM Date: 09/13/24 Loc: ER Room: Type: PRE ER Attending Dr: Copies to: NORRIS PROVIDER Ordering Provider: NORRIS PROVIDER Date of Service: 09/13/24 XR/XR chest 2V*: Arrhythmia/Palpitations Chest 2 views CLINICAL HISTORY: High blood pressure. Left shoulder/arm pain. COMPARISON: None FINDINGS: Heart normal size. Lungs are clear. No free air. XR/XR chest 2V* IMPRESSION: NO ACUTE CARDIOPULMONARY ABNORMALITY. Impression dictated by: Sabine Mayers Jr.OKenney09/13/2024 1:10 PM Dictation Location: [facility]-22 Transcribed By: GUY 09/13/24 1310 Dictated By: Shadi Nguyen Jr, DO 09/13/24 1310 Signed By: 09/13/24 1310 Normal [facility] X-ray reportOrdered By: Yousif Nguyen on 08-01-2024 Study report [facility] [place] [facility] [place] [address] XRay Report Signed Patient: Evelia Frances MR#: [id number] : 1965 Acct:[id number] Age/Sex: 59 / F ADM Date: 5 Loc: [facility] Room: Type: [facility] Attending Dr: Trung Porras II, MD Copies to: Trung Porras MD~ Ordering Provider: Trung Porras MD Date of Service: 08/01/24 XR/XR knee LT 4V*: M17.12 - Unilateral primary osteoarthritis, left knee LEFT KNEE - 4 views CLINICAL HISTORY: Left knee pain for months. COMPARISON: Left knee series 07/20/2024 FINDINGS: Small joint effusion. Moderate degenerative changes with medial weightbearing joint space narrowing and lateral subluxation of the tibial plateau similar to the prior study. No acute bony process is seen. XR/XR knee LT 4V* IMPRESSION: MODERATE DEGENERATIVE CHANGES OF THE LEFT KNEE SIMILAR TO THE PRIOR STUDY WITHOUT ACUTE BONY PROCESS. Impression dictated by: Emmanuelle Mayers Jr..OKenney08/01/2024 9:32 AM Dictation Location: RADIO-PC-22 Transcribed By: GUY 08/01/2432 Dictated By: Shadi Nguyen Jr, DO 08/01/24931 Signed By: 08/01/24 0932 [facility] XR knee LT 4V*on 08-01-2024 XR knee LT 4V* [facility] [place] [facility] [place] [address] XRay Report Signed Patient: Evelia Frances MR#: [id number] : 1965 Acct:[id number] Age/Sex: 59 / F ADM Date: 08/01/24 Loc: [facility] Room: Type: [facility] CLI Attending Dr: Trung Porras II, MD Copies to: Trung Porras MD Ordering Provider: Trung Porras MD Date of Service: 08/01/24 XR/XR knee LT 4V*: M17.12 - Unilateral primary osteoarthritis, left knee LEFT KNEE - 4 views CLINICAL HISTORY: Left knee pain for months. COMPARISON: Left knee series 07/20/2024 FINDINGS: Small joint effusion. Moderate degenerative changes with medial weightbearing joint space narrowing and lateral subluxation of the tibial plateau similar to the prior study. No acute bony process is seen. XR/XR knee LT 4V* IMPRESSION: MODERATE DEGENERATIVE CHANGES OF THE LEFT KNEE SIMILAR TO THE PRIOR STUDY WITHOUT ACUTE BONY PROCESS. Impression dictated by: Shadi Nguyen Jr., D.O.08/01/2024 9:32 AM Dictation Location: [place] [address] Transcribed By: [facility] 08/01/24 0932 Dictated By: Shadi Nguyen Jr DO 08/01/24 0932 Signed By: 08/01/24 0932 Normal [facility] X-ray reportOrdered By: Hudson Cerna on 07-20-2024 Study report [facility] [place] [facility] [address] [place] [address] XRay Report Signed Patient: Evelia Frances MR#: [id number] : 1965 Acct:[id number] Age/Sex: 59 / F ADM Date: 5 Loc: [facility] Room: Type: [facility] CLI Attending Dr: Trung Porras II, MD Copies to: Trung Porras MD~ Ordering Provider: Trung Porras MD Date of Service: 07/20/24 XR/XR knee LT 4V*: M25.562 - Pain in left knee ([id number]) XR/XR pelvis 1-2V: M25.562 - Pain in left knee Single view of the pelvis plain film HISTORY: Left knee pain for 6 months. Limited exam secondary to body habitus. COMPARISON: None ACUTE FINDINGS: None BONY ALIGNMENT: Adequate SOFT TISSUES: Unremarkable DEGENERATIVE CHANGE:Mild hip and SI joint degeneration INTRAPELVIC STRUCTURES: Unremarkable POSTSURGICAL CHANGES:None XR/XR pelvis 1-2V IMPRESSION:Limited exam. Mild degeneration 4 views left knee Xwpu-un-ozpz contact medial degeneration. 1 cm subluxation of the tibia laterally. Moderate patellofemoral degeneration. Small joint effusion. No acute displaced fracture. Unremarkable soft tissues IMPRESSION: Extensive L5 medial otaf-qy-ibke contact degeneration with 1 cm lateral tibial subluxation. Impression dictated by: Marcin Cerna M.D.07/20/2024 12:56 PM Dictation Location: [place] [address] Transcribed By: [facility] 07/20/24 1256 Dictated By: Marcin Cerna DO 07/20/24 1255 Signed By: 07/20/24 1256 [facility] XR knee LT 4V*on 07-20-2024 XR knee LT 4V* [facility] [place] [facility] [address] [place] [address] XRay Report Signed Patient: Evelia Frances MR#: [id number] : 1965 Acct:[id number] Age/Sex: 59 / F ADM Date: 07/20/24 Loc: [facility] [facility] Room: Type: [facility] Attending Dr: Trung Porras II, MD Copies to: Trung Porras MD Ordering Provider: Trung Porras MD Date of Service: 07/20/24 XR/XR knee LT 4V*: M25.562 - Pain in left knee ([id number]) XR/XR pelvis 1-2V: M25.562 - Pain in left knee Single view of the pelvis plain film HISTORY: Left knee pain for 6 months. Limited exam secondary to body habitus. COMPARISON: None ACUTE FINDINGS: None BONY ALIGNMENT: Adequate SOFT TISSUES: Unremarkable DEGENERATIVE CHANGE:Mild hip and SI joint degeneration INTRAPELVIC STRUCTURES: Unremarkable POSTSURGICAL CHANGES:None XR/XR pelvis 1-2V IMPRESSION:Limited exam. Mild degeneration 4 views left knee Vezs-tr-cbxl contact medial degeneration. 1 cm subluxation of the tibia laterally. Moderate patellofemoral degeneration. Small joint effusion. No acute displaced fracture. 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 Impression dictated by: Marcin Cerna M.D.07/20/2024 12:56 PM Dictation Location: [place] [address] Transcribed By: [facility] 07/20/24 1256 Dictated By: Marcin Cerna DO 07/20/24 1255 Signed By: 07/20/24 1256 Normal [facility] Auditory function testson Right Ear: Mild sensorineural hearing loss from 500 Hz - 6K Hz rising to normal hearing at 8K Hz Left Ear: Mild sensorineural hearing loss from 500 Hz - 3K Hz rising to normal hearing above 3K Hz [facility] Basophils Auto (Bld) [#/Vol] on 03-03-2024 Basophils (Bld) [#/Vol] 0.1 10 3/uL 0.0-0.1 [facility] Basophils/100 WBC Auto (Bld) on 03-03-2024 Basophils/100 WBC (Bld) 1.1 % 0.2-2.0 [facility] Cholesterol in LDL Calc [Mas s/Vol]on 03-03-2024 Cholesterol in LDL [Mass/Vol] 122.0 mg/dL [facility] Comment on above: <100 mg/dl [id number] 0-129 mg/dl NEAR OR ABOVE [id number] mg/dl BORDERLINE [id number] mg/dl HIGH>190 mg/dl VERY HIGH Cholesterol in VLDL Calc [Ma ss/Vol]on 03-03-2024 Cholesterol in VLDL [Mass/Vol] 39.6 mg/dL [facility] Eosinophils/100 WBC Auto (Bl d)on 03-03-2024 Eosinophils/100 WBC (Bld) 2.9 % 0.9-7.0 [facility] Erythrocyte distribution wid th Auto (RBC) [Ratio]on 03-03-2024 Erythrocyte distribution width (RBC) [Ratio] 12.4 % 11.0-15.0 [facility] Estimated glomerular filtrat ion rate (GFR) non- Americanon 03-03-2024 GFR/1.73 sq M.predicted among non-blacks MDRD (S/P/Bld) [Vol rate/Area] mL/min/{1.73_m2} >=60 [facility] Globulin Calc (S) [Mass/Vol] on 03-03-2024 Globulin (S) [Mass/Vol] 3.3 g/dL [facility] Glucose mean value [Mass/vol ume] in Blood Estimated from glycated hemoglobinon 03-03-2024 Average glucose Estimated from glycated hemoglobin (Bld) [Mass/Vol] 137 mg/dL [facility] Hematocrit Auto (Bld) [Volum e fraction]on 03-03-2024 Hematocrit (Bld) [Volume fraction] 42.9 % 36.0-48.0 [facility] Hemoglobin [Mass/volume] in Bloodon 03-03-2024 Hemoglobin (Bld) [Mass/Vol] 14.2 g/dL 12.0-16.0 [facility] Laboratory - Chemistry and C hemistry - challengeon 03-03-2024 Albumin [Mass/Vol] 3.8 g/dL 3.4-5.0 [facility] ALP [Catalytic activity/Vol] 72 U/L 46-116 [facility] ALT [Catalytic activity/Vol] 61 U/L High 14-59 [facility] AST [Catalytic activity/Vol] 27 U/L 15-37 [facility] Bilirubin [Mass/Vol] 0.5 mg/dL 0.2-1.0 [facility] Calcium [Mass/Vol] 9.1 mg/dL 8.5-10.1 [facility] Chloride [Moles/Vol] 104 mmol/L 98-107 [facility] Cholesterol [Mass/Vol] 207 mg/dL High <=200 [facility] Cholesterol in HDL [Mass/Vol] 46 mg/dL 40-60 [facility] Comment on above: > or =60 mg/dl - LOW CARDIOVASCULAR RISK<40 mg/dl - HIGH CARDIOVASCULAR RISK CO2 [Moles/Vol] 27.0 mmol/L 21.0-32.0 [facility] Creatinine [Mass/Vol] 0.61 mg/dL 0.55-1.02 [facility] GFR/1.73 sq M.predicted MDRD (S/P/Bld) [Vol rate/Area] mL/min/{1.73_m2} >=60 [facility] Glucose [Mass/Vol] 121 mg/dL High 74-106 [facility] Potassium [Moles/Vol] 4.0 mmol/L 3.5-5.1 [facility] Protein [Mass/Vol] 7.1 g/dL 6.4-8.2 [facility] Sodium [Moles/Vol] 141 mmol/L 136-145 [facility] Triglyceride [Mass/Vol] 198 mg/dL High <=150 [facility] TSH Qn 1.926 m[IU]/L 0.358-3.74 0 [facility] Urea nitrogen [Mass/Vol] 8.0 mg/dL 7.0-18.0 [facility] Urea nitrogen/Creatinine [Mass ratio] 13.1 mg/mg [facility] Laboratory - Hematology and Cell countson 03-03-2024 HbA1c (Bld) [Mass fraction] 6.4 % High 4.5-6.2 [facility] Comment on above: ADA RECOMMENDED LIMI T 4.0 - 6.0ADA THERAPEUTIC TARGET < 7.0ACTION SUGGESTED> 7.0 Immature granulocytes/100 WBC (Bld) 0.2 % 0.0-0.5 [facility] Leukocytes [#/volume] correc lizzy for nucleated erythrocytes in Blood by Automated counon 03-03-2024 WBC corrected for nucl RBC Auto (Bld) [#/Vol] 6.5 10 3/uL 4.0-11.0 [facility] Lymphocytes Auto (Bld) [#/Vo l]on 03-03-2024 Lymphocytes (Bld) [#/Vol] 1.9 10 3/uL 1.2-3.8 [facility] Lymphocytes/100 WBC Auto (Bl d)on 03-03-2024 Lymphocytes/100 WBC (Bld) 30.0 % 20.5-60.0 [facility] MCH Auto (RBC) [Entitic mass ]on 03-03-2024 MCH (RBC) [Entitic mass] 29.3 pg 26.7-34.0 [facility] MCHC Auto (RBC) [Mass/Vol]on 03-03-2024 MCHC (RBC) [Mass/Vol] 33.1 g/dL 29.9-35.2 [facility] MCV Auto (RBC) [Entitic vol] on 03-03-2024 MCV (RBC) [Entitic vol] 88.5 fL 81.0-99.0 [facility] Monocytes Auto (Bld) [#/Vol] on 03-03-2024 Monocytes (Bld) [#/Vol] 0.4 10 3/uL 0.3-0.8 [facility] Monocytes/100 WBC Auto (Bld) on 03-03-2024 Monocytes/100 WBC (Bld) 6.8 % 1.7-12.0 [facility] Neutrophils Auto (Bld) [#/Vo l]on 03-03-2024 Neutrophils (Bld) [#/Vol] 3.8 10 3/uL 1.4-6.5 [facility] Neutrophils/100 WBC Auto (Bl d)on 03-03-2024 Neutrophils/100 WBC (Bld) 59.0 % 43.0-75.0 [facility] No Panel Informationon 03-03 Eosinophils # (Auto) 0.2 10 3/uL 0.0-0.7 [facility] Immature Granulocyte # (Auto) 0.01 10 3/uL 0.00-0.03 [facility] Platelet mean volume Auto (B ld) [Entitic vol]on 03-03-2024 Platelet mean volume (Bld) [Entitic vol] 9.5 fL 9.5-13.5 [facility] Platelets Auto (Bld) [#/Vol] on 03-03-2024 Platelets (Bld) [#/Vol] 340 10 3/uL 150-450 [facility] RBC Auto (Bld) [#/Vol]on RBC (Bld) [#/Vol] 4.85 10 6/uL 4.20-5.40 [facility] Serum or plasma albumin/glob ulin mass ratioon 03-03-2024 Albumin/Globulin [Mass ratio] 1.2 {ratio} [facility] Serum or plasma anion gap de terminationon 03-03-2024 Anion gap [Moles/Vol] 14.0 mmol/L [facility] Serum or plasma total choles terol/high density lipoprotein (HDL) cholesterol mass lc 03-03-2024 Cholesterol.total/Chol esterol in HDL [Mass ratio] 4.5 {ratio} [facility] Comment on above: 3.3 - 4.4 LOW RISK4. 4 - 7.1 AVERAGE RISK7.1 - 11.0 MODERATE RISK>11.0 HIGH RISK CBC AUTO DIFFon 01-21-2022 BASO # 0.0 103/ul Normal 0.0-0.1 [facility] Comment on above: Performed By: #### C BC ####[facility] [address] [place] [address]Dr. Roz Barnhart Basophils/100 WBC (Bld) 0.8 % Normal 0.2-2.0 [facility] Comment on above: Performed By: #### C BC ####[facility] [address] [place], [place] [address]Dr. Roz Barnhart EO # 0.1 103/ul Normal 0.0-0.7 [facility] Comment on above: Performed By: #### C BC ####[facility] [address] [place], [place] [address]Dr. Roz Barnhart Eosinophils/100 WBC (Bld) 2.5 % Normal 0.9-7.0 [facility] Comment on above: Performed By: #### C BC ####[facility] [address] [place] [address]Dr. Roz Barnhart Erythrocyte distribution width (RBC) [Ratio] 12.2 % Normal 11.0-15.0 [facility] Comment on above: Performed By: #### C BC ####[facility] [address] [place], [place] [address]Dr. Roz Barnhart Hematocrit (Bld) [Volume fraction] 43.2 % Normal 36.0-48.0 [facility] Comment on above: Performed By: #### C BC ####[facility] [address] [place] [id number]. Roz Barnhart Hemoglobin (Bld) [Mass/Vol] 13.9 g/dL Normal 12.0-16.0 [facility] Comment on above: Performed By: #### C BC ####[facility] [address] [place] [id number]. Roz Barnhart IG # 0.01 10e3/ul Normal 0.00-0.03 [facility] Comment on above: Performed By: #### C BC ####[facility] [address] [place] [address]Dr. Roz Barnhart IG % 0.2 % Normal 0.0-0.5 [facility] Comment on above: Performed By: #### C BC ####[facility] [address] [place] [address]Dr. Roz Barnhart LYMPH # 1.5 103/ul Normal 1.2-3.8 [facility] Comment on above: Performed By: #### C BC ####[facility] [address] [place] [address]Dr. Roz Barnhart Lymphocytes/100 WBC (Bld) 29.8 % Normal 20.5-60.0 [facility] Comment on above: Performed By: #### C BC ####[facility] [address] [place] [address]Dr. Roz Barnhart MANUAL DIFF REQ NO Normal [facility] Comment on above: Performed By: #### C BC ####[facility] [address] [place] [address]Dr. Roz Barnhart MCH (RBC) [Entitic mass] 29.1 pg Normal 26.7-34.0 [facility] Comment on above: Performed By: #### C BC ####[facility] [address] [place] [id number]. Roz Barnhart MCHC (RBC) [Mass/Vol] 32.2 g/dL Normal 29.9-35.2 [facility] Comment on above: Performed By: #### C BC ####[facility] [address] [place], [place] [address]Dr. Roz Obey MCV (RBC) [Entitic vol] 90.6 fL Normal 81.0-99.0 [facility] Comment on above: Performed By: #### C BC ####[facility] [address] [place] [address]Dr. Roz Barnhart MONO # 0.4 103/ul Normal 0.3-0.8 [facility] Comment on above: Performed By: #### C BC ####[facility] [address] [place] [address]Dr. Roz Obey Monocytes/100 WBC (Bld) 6.8 % Normal 1.7-12.0 [facility] Comment on above: Performed By: #### C BC ####[facility] [address] [place] [address]Dr. Roz Barnhart NEUT # 3.1 103/ul Normal 1.4-6.5 [facility] Comment on above: Performed By: #### C BC ####[facility] [address] [place] [address]Dr. Piamayi Barnhart Neutrophils/100 WBC (Bld) 59.9 % Normal 43.0-75.0 [facility] Comment on above: Performed By: #### C BC ####[facility] [address] [place] [address]Dr. Roz Obey Platelet mean volume (Bld) [Entitic vol] 9.8 fL Normal 9.5-13.5 [facility] Comment on above: Performed By: #### C BC ####[facility] [address] [place] [address]Dr. Roz Obey PLT 321 103/ul Normal 150-450 [facility] Comment on above: Performed By: #### C BC ####[facility] [address] [place] [id number]. Piamayi Obey RBC 4.77 106/ul Normal 4.20-5.40 [facility] Comment on above: Performed By: #### C BC ####[facility] [address] [place] [address]Dr. Roz Barnhart WBC 5.1 103/ul Normal 4.0-11.0 [facility] Comment on above: Performed By: #### C BC ####[facility] [address] [place] [address]Dr. Roz Barnhart GLYCOHEMOGLOBIN A1Con 2021 ADA RECOMMENDATION SEE BELOW Normal [facility] Comment on above: Result Comment: ADA RECOMMENDED LIMIT 4.0 - 6.0 ADA THERAPEUTIC TARGET < 7.0 ACTION SUGGESTED > 7.0 Performed By: #### A 1C #### [facility] [address] [place] [address] [address] Roz Barnhart Glucose [Mass/Vol] 120 mg/dL Critically high 74-106 [facility] Comment on above: Performed By: #### A 1C #### [facility] [address] [place] [address] [address] Roz Barnhart Performed By: #### C MP, LIPID, TSH #### [facility] [address] [place] [address] [address] Roz Barnhart HbA1c (Bld) [Mass fraction] 5.8 % Normal 4.5-6.2 [facility] Comment on above: Performed By: #### A 1C #### [facility] [address] [place] [address] Dr. Roz Barnhart LIPID PROFILEon 01-21-2022 CHOL-HDL RATIO NORM SEE BELOW Normal [facility] Comment on above: Result Comment: 3.3 - 4.4 LOW RISK 4.4 - 7.1 AVERAGE RISK 7.1 - 11.0 MODERATE RISK >11.0 HIGH RISK Performed By: #### C MP, LIPID, TSH #### [facility] [address] [place] [address] [address] Roz Barnhart Cholesterol [Mass/Vol] 230 mg/dL Critically high <=200 [facility] Comment on above: Performed By: #### C MP, LIPID, TSH #### [facility] [address] [place] [address] [address] Roz Barnhart Cholesterol in HDL [Mass/Vol] 40 mg/dL Normal 40-60 [facility] Comment on above: Performed By: #### C MP, LIPID, TSH #### [facility] [address] [place] [address] [address] Roz Barnhart Cholesterol in LDL [Mass/Vol] 148.4 mg/dL Normal [facility] Comment on above: Performed By: #### C MP, LIPID, TSH #### [facility] [address] [place] [address] [address] Roz Banrhart Cholesterol.total/Chol esterol in HDL [Mass ratio] 5.8 {ratio} Normal [facility] Comment on above: Performed By: #### C MP, LIPID, TSH #### [facility] [address] [place] [address] [address] Roz Barnhart HDL NORMAL > or = 60 mg/dl - LO W CARDIOVASCULAR RISK <40 mg/dl - HIGH CARDIOVASCULAR RISK Normal [facility] Comment on above: Performed By: #### C MP, LIPID, TSH #### [facility] [address] [place] [address] [address] Roz Barnhart LDL CALC NORMAL SEE BELOW Normal [facility] Comment on above: Result Comment: <100 mg/dl OPTIMAL 100 - 129 mg/dl NEAR OR ABOVE OPTIMAL 130 - 159 mg/dl BORDERLINE HIGH 160 - 189 mg/dl HIGH >190 mg/dl VERY HIGH Performed By: #### C MP, LIPID, TSH #### [facility] [address] [place] [address] [address] Roz Barnhart Triglyceride [Mass/Vol] 208 mg/dL Critically high <=150 [facility] Comment on above: Performed By: #### C MP, LIPID, TSH #### [facility] [address] [place] [address] Dr. Roz Barnhart VLDL CALC 41.6 mg/dL Normal [facility] Comment on above: Performed By: #### C MP, LIPID, TSH #### [facility] [address] [place] [address] Dr. Roz Barnhart MG MAMM SCREEN 3D STEPHY CADon 01-21-2022 MG MAMM SCREEN 3D STEPHY CAD Patient: EVELIA FRANCES Exam Date: 01/21/2022 : 1965 Gender:F Ordering : DR HIWOT FISHER M.D. Admission #: [id number] Family : Order #: [id number] CLICK HERE TO VIEW EXAM RADIOLOGY REPORT [...] breast cancer at age 62. LOCATION: [facility] BREAST COMPOSITION: Scattered areas fibroglandular density. FINDINGS: [...] Malave M.D. on 01/22/2022 at 14:24 Normal [facility] PROF 14(COMP METB)on 022 Albumin [Mass/Vol] 3.8 g/dL Normal 3.4-5.0 [facility] Comment on above: Performed By: #### C MP, LIPID, TSH #### [facility] [address] [place] [address] [address] Roz Barnhart Albumin/Globulin [Mass ratio] 1.1 {ratio} Normal [facility] Comment on above: Performed By: #### C MP, LIPID, TSH #### [facility] [address] [place] [address] [address] Roz Barnhart ALP [Catalytic activity/Vol] 57 U/L Normal 46-116 [facility] Comment on above: Performed By: #### C MP, LIPID, TSH #### [facility] [address] [place] [address] [address] Roz Barnhart ALT [Catalytic activity/Vol] 42 U/L Normal 14-59 [facility] Comment on above: Performed By: #### C MP, LIPID, TSH #### [facility] [address] [place] [address] Dr. Roz Barnhart Anion gap [Moles/Vol] 13.6 mmol/L Normal Th e [facility] Comment on above: Performed By: #### C MP, LIPID, TSH #### [facility] [address] [place] [address] Dr. Roz Barnhart AST [Catalytic activity/Vol] 21 U/L Normal 15-37 [facility] Comment on above: Performed By: #### C MP, LIPID, TSH #### [facility] [address] [place] [address] Dr. Roz Barnhart Bilirubin [Mass/Vol] 0.4 mg/dL Normal 0.2-1.0 [facility] Comment on above: Performed By: #### C MP, LIPID, TSH #### [facility] [address] [place] [address] Dr. Roz Barnhart Calcium [Mass/Vol] 9.2 mg/dL Normal 8.5-10.1 [facility] Comment on above: Performed By: #### C MP, LIPID, TSH #### [facility] [address] [place] [address] Dr. Roz Barnhart Chloride [Moles/Vol] 104 mmol/L Normal 98-107 [facility] Comment on above: Performed By: #### C MP, LIPID, TSH #### [facility] [address] [place] [address] Dr. Roz Barnhart CO2 [Moles/Vol] 26.7 mmol/L Normal 21.0-32.0 [facility] Comment on above: Performed By: #### C MP, LIPID, TSH #### [facility] [address] [place] [address] Dr. Roz Barnhart Creatinine [Mass/Vol] 0.67 mg/dL Normal 0.55-1.02 [facility] Comment on above: Performed By: #### C MP, LIPID, TSH #### [facility] [address] [place] [address] [address] Roz Barnhart EGFR-AF URUGUAYAN >60 Normal >=60 [facility] Comment on above: Performed By: #### C MP, LIPID, TSH #### [facility] [address] [place] [address] [address] Roz Barnhart EGFR-NON AF URUGUAYAN >60 Normal >=60 [facility] Comment on above: Performed By: #### C MP, LIPID, TSH #### [facility] [address] [place] [address] [address] Roz Barnhart Globulin (S) [Mass/Vol] 3.4 g/dL Normal [facility] Comment on above: Performed By: #### C MP, LIPID, TSH #### [facility] [address] [place] [address] Dr. Roz Barnhart Potassium [Moles/Vol] 4.3 mmol/L Normal 3.5-5.1 [facility] Comment on above: Performed By: #### C MP, LIPID, TSH #### [facility] [address] [place] [address] [address] Roz Barnhart Protein [Mass/Vol] 7.2 g/dL Normal 6.4-8.2 [facility] Comment on above: Performed By: #### C MP, LIPID, TSH #### [facility] [address] [place] [address] Dr. Roz Barnhart Sodium [Moles/Vol] 140 mmol/L Normal 136-145 [facility] Comment on above: Performed By: #### C MP, LIPID, TSH #### [facility] [address] [place] [address] [address] Roz Barnhart Urea nitrogen [Mass/Vol] 11.0 mg/dL Normal 7.0-18.0 [facility] Comment on above: Performed By: #### C MP, LIPID, TSH #### [facility] [address] [address] [address] Roz Barnhart Urea nitrogen/Creatinine [Mass ratio] 16.4 mg/mg Normal [facility] Comment on above: Performed By: #### C MP, LIPID, TSH #### [facility] [address] [address] [address] Roz Barnhart TSHon 01-21-2022 TSH 1.738 uIU/mL Normal 0.358-3.74 0 [facility] Comment on above: Performed By: #### C MP, LIPID, TSH #### [facility] [address] [address] [address] Roz Barnhart Covid-19 PCR ([facility])on SARS-CoV-2 (COVID-19) RNA MARICRUZ+probe Ql (Unsp spec) Not detected Normal NOT DETECTED [facility] Comment on above: Result Comment: This test is not yet approved or cleared by the [place] FDA. When there are no FDA-approved or cleared tests available, and other criteria are met, FDA can make tests available under an emergency access mechanism called an Emergency Use Authorization (EUA). The EUA for this test is supported by the [place] of Health and Human Service's (HHS's) declaration [...] SARS-CoV-2. Performed By: #### C VDTBH #### [facility] [address] [address] [address] Roz Barnhart QUANTIFERON TB GOLD PLUS (NO N-INC)on 05-10-2021 Comment Incubation performed. Normal [facility] Comment on above: Performed By: #### Q NTTBG #### [facility] [address] [address] [address] Roz Barnhart Criteria Comment Normal [facility] Comment on above: Result Comment: The QuantiFERON-TB Gold Plus result is determined by subtracting the Nil value from either TB antigen (Ag) tube. The mitogen tube serves as a control for the test. Performed By: #### Q NTTBG #### [facility] [address] [place] [address] Dr. Roz Barnhart Mitogen Value >10.00 Normal [facility] Comment on above: Performed By: #### Q NTTBG #### [facility] [address] [place] [address] Dr. Roz Barnhart Nill Value 0.00 IU/mL Normal [facility] Comment on above: Performed By: #### Q NTTBG #### [facility] [address] [place] [address] Dr. Roz Barnhart Quantiferon Gold Plus Negative Normal Negative [facility] Comment on above: Result Comment: Chem iluminescence immunoassay methodology Performed By: #### Q NTTBG #### [facility] [address] [place] [address] Dr. Roz Barnhart TB1 Ag Value 0.01 IU/mL Normal [facility] Comment on above: Performed By: #### Q NTTBG #### [facility] [address] [place] [address] Dr. Roz Barnhart TB2 Ag Value 0.01 IU/mL Normal [facility] Comment on above: Performed By: #### Q NTTBG #### [facility] [address] [place] [address] Dr. Roz Barnhart HEPATITIS B SURFACE ANTIBODY , QUANTon 05-07-2021 Hepatitis B Surf AB Quant <3.1 Critically low Immunity>9 .9 [facility] Comment on above: Result Comment: Stat us of Immunity Anti-HBs Level Inconsistent with Immunity 0.0 - 9.9 Consistent with Immunity >9.9 Performed By: #### H EPBSRF #### [facility] [address] [place] [address] Dr. Roz Barnhart MMR IMMUNITYon 05-07-2021 Mumps Abs, IgG 11.8 AU/mL Normal Immune >10.9 [facility] Comment on above: Result Comment: Nega tive <9.0 Equivocal 9.0 - 10.9 Positive >10.9 A positive result generally indicates past exposure to Mumps virus or previous vaccination. Performed By: #### M MRIMMU #### [facility] [address] [address] [address] Roz Barnhart Rubella Antibodies, IgG 8.56 index Normal Immune >0.99 [facility] Comment on above: Result Comment: Non- immune <0.90 Equivocal 0.90 - 0.99 Immune >0.99 Performed By: #### M MRIMMU #### [facility] [address] [address] [address] Roz Barnhart Rubeola Ab, IgG >300.0 Normal Immune >16.4 [facility] Comment on above: Result Comment: Nega tive <13.5 Equivocal 13.5 - 16.4 Positive >16.4 Presence of antibodies to Rubeola is presumptive evidence of immunity except when acute infection is suspected. Performed By: #### M MRIMMU #### [facility] [address] [place] [address] Dr. Roz Barnhart VARICELLA IGG ABon 1 Varicella Zoster IgG >4000 Normal Immune >165 [facility] Comment on above: Result Comment: Nega tive <135 Equivocal 135 - 165 Positive >165 A positive result generally indicates exposure to the pathogen or administration of specific immunoglobulins, but it is not indication of active infection or stage of disease. Performed By: #### V ARCEL #### [facility] [address] [place] [address] Dr. Roz Barnhart Vital Signs Date Time Vital Sign Value Performing Clinician Facility 03-05-2025 08:25-040 Body height 172.72 cm Hiwot Fisher MD Work Phone: [facility] 03-05-2025 08:25-0400 Body mass index (BMI) [Ratio] 46.8 kg/m2 Hiwot Fisher MD Work Phone: [facility] 03-05-2025 08:25-0400 Body weight 139.7 kg Hiwot Fisher MD Work Phone: [facility] 03-05-2025 08:25-0400 Diastolic blood pressure 87 mm[Hg] Hiwot Fisher MD Work Phone: [facility] 03-05-2025 08:25-0400 Heart rate 71 /min Hiwot Fisher MD Work Phone: [facility] 03-05-2025 08:25-0400 Systolic blood pressure 141 mm[Hg] Hiwot Fisher MD Work Phone: [facility] 03-02-2025 13:22-0400 Body height 172.72 cm Hiwot Fisher MD Work Phone: [facility] 03-02-2025 13:22-0400 Body mass index (BMI) [Ratio] 45.9 kg/m2 Hiwot Fisher MD Work Phone: [facility] 03-02-2025 13:22-0400 Body temperature 98.6 [degF] Hiwot Fsiher MD Work Phone: [facility] 03-02-2025 13:22-0400 Body weight 136.98 kg Hiwot Fisher MD Work Phone: [facility] 03-02-2025 13:22-0400 Diastolic blood pressure 76 mm[Hg] Hiwot Fisher MD Work Phone: [facility] 03-02-2025 13:22-0400 Heart rate 78 /min Hiwot Fisher MD Work Phone: [facility] 03-02-2025 13:22-0400 Respiratory rate 18 /min Hiwot Fisher MD Work Phone: [facility] 03-02-2025 13:22-0400 SaO2% (BldA) [Mass fraction] 98 % Hiwot Fisher MD Work Phone: [facility] 03-02-2025 13:22-0400 Systolic blood pressure 133 mm[Hg] Hiwot Fisher MD Work Phone: [facility] 09-20-2024 09:20-0500 Body height 172.72 cm Hiwot Fisher MD Work Phone: [facility] 09-20-2024 09:20-0500 Body mass index (BMI) [Ratio] 46.5 kg/m2 Hiwot Fisher MD Work Phone: [facility] 09-20-2024 09:20-0500 Body weight 138.79 kg Hiwot Fisher MD Work Phone: [facility] 09-20-2024 09:20-0500 Diastolic blood pressure 81 mm[Hg] Hiwot Fisher MD Work Phone: [facility] 09-20-2024 09:20-0500 Heart rate 67 /min Hiwot Fisher MD Work Phone: [facility] 09-20-2024 09:20-0500 Systolic blood pressure 148 mm[Hg] Hiwot Fisher MD Work Phone: [facility] 09-13-2024 17:00-0500 Diastolic blood pressure 85 mm[Hg] Hiwot Fisher MD Work Phone: [facility] 09-13-2024 17:00-0500 Heart rate 89 /min Hiwot Fisher MD Work Phone: [facility] 09-13-2024 17:00-0500 Respiratory rate 20 /min Hiwot Fisher MD Work Phone: [facility] 09-13-2024 17:00-0500 SaO2% (BldA) [Mass fraction] 96 % Hiwot Fisher MD Work Phone: [facility] 09-13-2024 17:00-0500 Systolic blood pressure 163 mm[Hg] Hiwot Fisher MD Work Phone: [facility] 09-13-2024 12:41-0500 Body height 172.72 cm Hiwot Fisher MD Work Phone: [facility] 09-13-2024 12:41-0500 Body temperature 97.9 [degF] Hiwot Fisher MD Work Phone: [facility] 09-13-2024 12:41-0500 Body weight 139 kg Hiwot Fisher MD Work Phone: [facility] 08-30-2024 09:52-0500 Body height 172.72 cm Hiwot Fisher MD Work Phone: [facility] 08-30-2024 09:52-0500 Body mass index (BMI) [Ratio] 46.5 kg/m2 Hiwot Fisher MD Work Phone: [facility] 08-30-2024 09:52-0500 Body weight 138.96 kg Hiwot Fisher MD Work Phone: [facility] 08-30-2024 09:52-0500 Diastolic blood pressure 95 mm[Hg] Hiwot Fisher MD Work Phone: [facility] 08-30-2024 09:52-0500 Heart rate 73 /min Hiwot Fisher MD Work Phone: [facility] 08-30-2024 09:52-0500 Systolic blood pressure 151 mm[Hg] Hiowt Fisher MD Work Phone: [facility] 07-20-2024 08:07-0500 Body height 172.72 cm Hiwot Fisher MD Work Phone: [facility] 07-20-2024 08:07-0500 Body mass index (BMI) [Ratio] 46.8 kg/m2 Hiwot Fisher MD Work Phone: [facility] 07-20-2024 08:07-0500 Body weight 139.7 kg Hiwot Fisher MD Work Phone: [facility] 02-28-2024 17:16-0400 Body height 172.72 cm MD Hiwot Fisher Work Phone: [facility] 02-28-2024 17:16-0400 Body mass index (BMI) [Ratio] 47.4 kg/m2 MD Hiwot Fisher Work Phone: [facility] 02-28-2024 17:16-0400 Body temperature 98.2 [degF] MD Hiwot Fisher Work Phone: [facility] 02-28-2024 17:16-0400 Body weight 141.52 kg MD Hiwot Fisher Work Phone: [facility] 02-28-2024 17:16-0400 Diastolic blood pressure 93 mm[Hg] MD Hiwot Fisher Work Phone: [facility] 02-28-2024 17:16-0400 Heart rate 90 /min MD Hiwot Fisher Work Phone: [facility] 02-28-2024 17:16-0400 Respiratory rate 20 /min MD Hiwot Fisher Work Phone: [facility] 02-28-2024 17:16-0400 SaO2% (BldA) [Mass fraction] 97 % MD Hiwot Fisher Work Phone: [facility] 02-28-2024 17:16-0400 Systolic blood pressure 161 mm[Hg] MD Hiwot Fisher Work Phone: [facility] 02-24-2024 08:51-0400 Body height 172.72 cm MD Hiwot Fisher Work Phone: [facility] 02-24-2024 08:51-0400 Body mass index (BMI) [Ratio] 47.7 kg/m2 MD Hiwot Fisher Work Phone: [facility] 02-24-2024 08:51-0400 Body weight 142.42 kg MD Hiwot Fisher Work Phone: [facility] 02-24-2024 08:51-0400 Diastolic blood pressure 76 mm[Hg] MD Hiwot Fisher Work Phone: [facility] 02-24-2024 08:51-0400 Heart rate 91 /min MD Hiwot Fisher Work Phone: [facility] 02-24-2024 08:51-0400 Systolic blood pressure 135 mm[Hg] MD Hiwot Fisher Work Phone: [facility] 01-27-2024 14:16-0400 Body height 170.18 cm MD Hiwot Fisher Work Phone: [facility] 01-27-2024 14:16-0400 Body mass index (BMI) [Ratio] 48.6 kg/m2 MD Hiwot Fisher Work Phone: [facility] 01-27-2024 14:16-0400 Body temperature 98.4 [degF] MD Hiwot Fisher Work Phone: [facility] 01-27-2024 14:16-0400 Body weight 141.06 kg MD Hiwot Fisher Work Phone: [facility] 01-27-2024 14:16-0400 Diastolic blood pressure 88 mm[Hg] MD Hiwot Fisher Work Phone: [facility] 01-27-2024 14:16-0400 Heart rate 97 /min MD Hiwot Fisher Work Phone: [facility] 01-27-2024 14:16-0400 Systolic blood pressure 151 mm[Hg] MD Hiwot Fisher Work Phone: [facility] 08-06-2022 11:30-0500 Body height 168.91 cm Hiwot Fisher Other [facility] Other 08-06-2022 11:30-0500 Body mass index (BMI) [Ratio] 48.01 kg/m2 Hwiot Fisher Other [facility] Other 08-06-2022 11:30-0500 Body weight 136.99 kg Hiwot Fisher Other [facility] Other 08-06-2022 11:30-0500 Diastolic blood pressure 80 mm[Hg] Hiwot Fisher Other [facility] Other 08-06-2022 11:30-0500 SaO2% (BldA) [Mass fraction] 99 % Hiwot Fisher Other [facility] Other 08-06-2022 11:30-0500 Systolic blood pressure 122 mm[Hg] Hiwot Fisher Other [facility] [employer] Other Encounters Encounter Date Encounter Type Care Provider Facility Start: 03-05-2025 End: 03-05-2025 ambulatory Hiwot Fisher MD Work Phone: [facility] Work Phone: Start: 03-05-2025 End: 03-05-2025 Patient encounter procedure Hiwot Fisher MD -[facility] Work Phone: Start: 03-05-2025 End: 03-05-2025 Patient encounter status Hiwot Fisher MD [facility] Start: 03-02-2025 End: 03-02-2025 Departed Referred Reece Nails APRN -[facility] 50 Start: 03-02-2025 End: 03-02-2025 ambulatory Hiwot Fisher MD Work Phone: [facility] Work Phone: Start: 03-02-2025 End: 03-02-2025 Patient encounter procedure Reece Nails APRN -[facility] [place] Work Phone: Start: 01-29-2025 End: 01-29-2025 Patient encounter procedure [facility] Antionette Lara [facility] Comment on above: Sensorineural hearin g loss (SNHL) of both ears (Primary Dx) Start: 01-29-2025 End: 01-29-2025 ambulatory EVELIA JEFF Not Available Start: 09-20-2024 End: 09-20-2024 Patient encounter procedure [facility] L[facility] Comment on above: Sensorineural hearin g loss (SNHL) of both ears (Primary Dx) Start: 09-20-2024 End: 09-20-2024 ambulatory EVELIA JEFF Not Available Start: 09-20-2024 End: 09-20-2024 ambulatory Hiwot Fisher MD Work Phone: [facility] Work Phone: Start: 09-20-2024 End: 09-20-2024 Patient encounter procedure Hiwot Fisher MD Work Phone: [facility] Work Phone: Start: 09-14-2024 Non-patient / Non-visit Hiwot Fisher MD Work Phone: [facility] Work Phone: Start: 09-13-2024 End: 09-13-2024 Emergency department patient visit Hiwot Fisher MD Work Phone: [facility] Work Phone: Start: 09-11-2024 Registered Recurring Hiwot todd MD Work Phone: [facility] Start: 09-06-2024 End: 09-06-2024 Patient encounter procedure [facility] - Antionette Lara [facility] Comment on above: Sensorineural hearin g loss (SNHL) of both ears (Primary Dx) Start: 09-06-2024 End: 09-06-2024 ambulatory EVELIA AGUILAR Not Available Start: 08-30-2024 End: 08-30-2024 ambulatory Hiwot Fisher MD Work Phone: [facility] Work Phone: Start: 08-30-2024 End: 08-30-2024 Patient encounter procedure Hiwot Fisher MD Work Phone: [facility] Work Phone: Start: 08-07-2024 Registered Recurring Hiwot todd MD Work Phone: [facility] Start: 08-01-2024 End: 08-01-2024 ambulatory Hiwot Fisher MD Work Phone: [facility] Work Phone: Start: 08-01-2024 End: 08-01-2024 Patient encounter procedure Hiwot Fisher MD Work Phone: [facility] Work Phone: Start: 07-20-2024 End: 07-20-2024 ambulatory Hiwot Fisher MD Work Phone: [facility] Work Phone: Start: 07-20-2024 End: 07-20-2024 Patient encounter procedure Hiwot Fisher MD Work Phone: [facility] Work Phone: Start: 07-18-2024 Registered Recurring Hiwot todd MD Work Phone: [facility] Start: 07-03-2024 Registered Recurring Hiwot todd MD Work Phone: [facility] Start: 05-29-2024 End: 05-29-2024 Clinical Support Evelia Aguilar CCC-A Work Phone: [facility] Comment on above: Sensorineural hearin g loss (SNHL) of both ears (Primary Dx) Start: 05-29-2024 End: 05-29-2024 Bamboo flowsheet Evelia Teja Jeff CCC-A Work Phone: [facility] Start: 05-29-2024 End: 05-29-2024 Bamboo flowsheet Evelai Teja Jeff CCC-A Work Phone: [facility] Start: 03-27-2024 End: 03-27-2024 ambulatory MD Hiwot Fisher Work Phone: [facility] Work Phone: Start: 03-27-2024 End: 03-27-2024 Patient encounter procedure MD Hiwot Fisher Work Phone: [facility] Work Phone: Start: 03-03-2024 Non-patient / Non-visit MD Ayaka Fisher Work Phone: [facility] Work Phone: Start: 02-28-2024 End: 02-28-2024 ambulatory MD Hiwot Fisher Work Phone: [facility] Work Phone: Start: 02-28-2024 End: 02-28-2024 Patient encounter procedure MD Hiwot Fisher Work Phone: [facility] [place] Work Phone: Start: 02-24-2024 Patient encounter status MD Sreekanth Fisher Work Phone: [facility] Start: 02-23-2024 End: 02-23-2024 ambulatory MD Hiwot Fisher Work Phone: [facility] Work Phone: Start: 02-23-2024 End: 02-23-2024 Encounter for general adult medical examination without abnormal findings MD Hiwot Fisher Work Phone: [facility] Start: 02-23-2024 End: 02-23-2024 Patient encounter procedure MD Hiwot Fisher Work Phone: [facility] Work Phone: Start: 01-27-2024 End: 01-27-2024 ambulatory MD Hiwot Fisher Work Phone: [facility] Work Phone: Start: 01-27-2024 End: 01-27-2024 Patient encounter procedure MD Hiwot Fisher Work Phone: [facility] Work Phone: Start: 01-25-2024 Registered Recurring MD Hiwot Fisher Work Phone: [facility] Start: 01-10-2024 Registered Recurring MD Hiwot Fisher Work Phone: [facility] Start: 04-01-2023 (Televisit) Televisit Hiwot Fisher [facility] Start: 04-01-2023 End: 04-01-2023 ambulatory Hiwot Fisher Other [facility] Other Start: 03-31-2023 End: 03-31-2023 ambulatory Deb Tereza Other [facility] Other Start: 03-31-2023 Telephone encounter Deb Ismael [facility] Start: 01-11-2023 End: 01-11-2023 ambulatory Hiwot Fisher Other [facility] Other Start: 01-11-2023 Telephone encounter Hiwot Fisher [facility] Start: 10-05-2022 End: 10-05-2022 ambulatory Hiwot Fisher Other [facility] Other Start: 10-05-2022 Telephone encounter Hiwot Fisher [facility] Start: 08-06-2022 End: 08-06-2022 ambulatory Hiwot Fisher Other [facility] Other Start: 08-06-2022 Office outpatient vi sit 15 minutes Hiwot Fisher [facility] Start: 08-03-2022 End: 08-03-2022 ambulatory Hiwot Fisher Other [facility] Other Start: 08-03-2022 Telephone encounter Hiwot Fisher [facility] Start: 01-26-2022 Encounter for genera l adult medical examination without abnormal findings DR HIWOT FISHER [facility] Start: 01-21-2022 End: 01-22-[address] BENJAMIN MALAVE Facility:[facility] Start: 01-21-2022 End: 01-22-2022 Encounter for general adult medical examination without abnormal findings DR BENJAMIN MALAVE Facility:[facility] Start: 07-21-2021 End: 07-21-2021 ambulatory KAROL CASH Facility:[facility] Start: 05-14-2021 End: 05-15-2021 ambulatory RENU MARIE Facility:[facility] Start: 05-05-2021 End: 05-05-2021 ambulatory KAROL CASH Facility:[facility] Procedures Date Procedure Procedure Detail Performing Clinician Start: 03-02-2025 Urine culture Hiwot todd MD Work Phone: Start: 09-13-2024 Plain chest X-ray Zena Fisher MD Work Phone: Start: 08-01-2024 X-ray of left knee, four views Hiwot Fisher MD Work Phone: Start: 07-20-2024 Plain radiography of pelvis Hiwot Fisher MD Work Phone: Start: 07-20-2024 X-ray of left knee, four views Hiwot Fisher MD Work Phone: Start: 05-29-2024 AUDITORY FUNCTION TESTS Evelia Aguilar [facility] Work Phone: Plan of Treatment Date Care Activity Detail Author Start: 03-19-2025 Influenza vaccination Influenza Vaccine (#1) [facility] Start: 03-05-2025 Patient referral [facility] Work Phone: Start: 03-02-2025 Bacteria identified in Urine by Culture Urine Culture [facility] Start: 03-02-2025 End: 03-02-2025 Urine culture [facility] Start: 03-02-2025 End: 03-02-2025 [facility] Start: 09-20-2024 End: 09-20-2024 Patient encounter procedure 09/20/2024 3:30 PM EST Office Visit [facility] [address] [place] [address] [facility] Start: 08-01-2024 X-ray of left knee, four views XR knee LT 4V* [facility] Start: 08-01-2024 XR Knee - left 4 Views [facility] Start: 07-20-2024 Patient referral [facility] Work Phone: Start: 07-20-2024 Plain radiography of pelvis XR pelvis 1-2V [facility] Start: 07-20-2024 X-ray of left knee, four views XR knee LT 4V* [facility] Start: 07-20-2024 XR Knee - left 4 Views [facility] Start: 07-20-2024 XR Pelvis 1 or 2 Views [facility] Start: 2007 Screening for malignant neoplasm of breast Mammogram [facility] Start: 1997 Screening for malignant neoplasm of cervix [facility] Start: 01-02-1988 Screening for malignant neoplasm of cervix Pap Smear [facility] Start: 1967 Screening for malignant neoplasm of colon [facility] Atopobium vaginae DN A [Presence] in Vaginal fluid by MARICRUZ with probe detection [facility] Bacterial vaginosis associated bacterium 2 DNA [Presence] in Vaginal fluid by MARICRUZ with probe detection [facility] Megasphaera sp type 1 DNA [Presence] in Vaginal fluid by MARICRUZ with probe detection [facility] MG Breast - bilatera l Screening [facility] MR Knee - left WO contrast [facility] Patient Education Palpitations E D High blood pressure - ED discharge instructions [facility] Work Phone: Patient referral [facility] Work Phone: Immunizations Immunization Date Immunization Notes Care Provider Fa [facility] 04-27-2024 influenza virus [facility], unspecified [facility] 08-13-2020 COVID-19 mRNA-1273 (Moderna) MD Hiwot Fisher Work Phone: [facility] 07-16-2020 COVID-19 mRNA-1273 (Moderna) MD Hiwot Fisher Work Phone: [facility] Payers Date Payer Category Payer Private Health Insurance [id number] 2024 Unknown [id number] 2019 Unknown [id number] 1967 Unknown [id number] [id number] 1967 Unknown [id number] 2.16.84 [id number] 1967 Unknown [id number] 1967 Unknown [id number] 1967 Unknown [id number] 1967 Unknown [id number] 1957 Self-pay [id number] [employer] [id number] Self-pay Self Pay [id number] Unknown [id number] [id number] [id number] Unknown [id number] [id number] [id number] Unknown [facility] [id number] Social History Date Type Detail Facility Unknown if ever smoked [facility] Other Sex Assigned At Sex Assigned At Bir th [facility] Other Start: 11-06-2020 End: 09-13-2024 Tobacco smoking status NVIS Never smoked tobacco (finding) [facility] Start: 1965 Sex Assigned At Female F [facility] Tobacco smoking status NVIS Tobacco smoking consumption unknown [facility] Start: 03-29-2024 Gender identity Identifies as female gender (finding) [facility] Start: 03-29-2024 Sexual orientation Heterosexual (fin ding) [facility] Start: 07-20-2024 End: 09-20-2024 Sex Female (finding) [facility] NEGATED: Highlighted row [facility] NEGATED: Highlighted row N [facility] Clinical Notes 08-06-2022 to 03-02-2025 Note Date & Type Note Facility 03-02-2025 Evaluation note Diagnosis Onset Date Resolution UTI (urinary tract infection) noneactive March 02 1:13pm [facility] Work Phone: [phone] 131-373508-15-2025 Evaluation note* Diagnosis Onset Date Resolution Status Admit Date UTI (urinary tract infection) noneac tive March 02, 2025 1:13pm Adult BMI 45.0-49.9 kg/sq m acute March 05, 2025 8:23am Colon cancer screening acute 2024 8:23am Gastro-esophageal reflux disease without esophagitis acute 2024 8:23am Obesity, class 3 acute February 162024 8:23am Screening mammogram for breast cancer acute March 05 8:23am Wellness examination acute 2024 8:23am [facility] Work Phone: 1(222) 435-880407-14-2025 History of Present illness Narrative* Antionette Lara MA - 01/29/2025 3:30 PM EDT Patient was in today stating that her left hearing aid is not streaming and seems very weak. Listening check confirmed that the aid was not amplifying. I changed the 2S employee relation manager and the aid was amplifying. Patient was relieved to know that the aid was not working and it was not her imagination. I checked pairing to the phone. The pairing was still good. Patient will continue as needed. This was ano charge warranty repair. Cosigned by KATI Elliott at 01/30/2025 11:18 AM EDT documented in this encounterCooper County Memorial [id number] History of Present illness Narrative* Antionette Lara MA - 09/20/2024 3:30 PM EST Patient was in for a two week follow up on hearing aids. Patient is very pleased and states the only issue is retention. I increased patient dome size to small vented with retention line. Patient waspleased. She will continue as needed. Patient was given one pack of small vented domes. I will giveher one additional pack of domes at no cost once she decides which size works best. Cosigned by KATI Elliott at 09/21/2024 9:50 AM EST documented in this encounterCooper County Memorial [id number] History of Present illness Narrative* Antionette Lara MA - 09/06/2024 3:00 PM EST Patient was in today to be fit with [employer] C&G 1 IX hearing aids which she obtained through assistance from [employer]. Patient is a new hearing aid wearer. Patient aids were coupled to 2S receivers with XS vented domes. Patient was able to complete maintenance tasks. She was able to insert and remove the aids with ease. Patient was bothered by an echo and felt the aids were too loud. After adjustment patient was willing to try the hearing aids. Patient aids were paired to her Iphone. Patient was comfortable with streaming and with the kathy. She was scheduled for a two week follow up. Cosigned by KATI Elliott at 09/07/2024 8:57 AM EST documented in this encounterCooper County Memorial [id number] Evaluation note* Diagnosis Onset Date Resolution Status Admit Date Adult body mass index 40 and over acute July 20 7:33am Primary osteoarthritis of le ft knee acute July 20 7:33am [facility] Work Phone: 1(728) 944-262401-02-2025 Evaluation note* Diagnosis Onset Date Resolution Status Admit Date Adult body mass index 40 and over acute July 20 7:33am Primary osteoarthritis of le ft knee acute July 20 7:33am Primary osteoarthritis of le ft knee acute August 01 8:49am [facility] Work Phone: 1(838) 611-864801-02-2025 Evaluation note* Diagnosis Onset Date Resolution Status Admit Date Adult body mass index 40 and over acute July 20 7:33am Primary osteoarthritis of le ft knee acute July 20 7:33am Primary osteoarthritis of le ft knee acute August 01 8:49am Left knee pain acute August 192024 9:41am Primary osteoarthritis of le ft knee acute August 30 9:41am [facility] Work Phone: 1(848) 545-236901-02-2025 Evaluation note* Diagnosis Onset Date Resolution Status Admit Date Adult body mass index 40 and over acute July 20 7:33am Primary osteoarthritis of le ft knee acute July 20 7:33am Primary osteoarthritis of le ft knee acute August 01 8:49am Asthma acute August 30, 2024 9:41am Gastro-esophageal reflux disease without esophagitis acute ua2024 9:41am Left knee pain acute August 192024 9:41am Primary osteoarthritis of le ft knee acute August 30, 025 9:41am [facility] Work Phone: 1(825) 461-949011-11-2024 History of Present illness Narrative* Evelia Aguilar, CCC-A - 05/29/2024 3:15 PM EST History: Pt was referred to Audiology because of hearing loss. Pt reports history of hearing loss, worse in her right ear. She has difficulty hearing at work and was referred to our office by [employer]. Pt denies excessive exposure to loud noise, tinnitus, and frequent ear infection as an adult. Otoscopic Exam: Ear canal clear and TM intact AU Pure Tone Audiometry Right Ear: Mild sensorineural hearing loss from 500 Hz - 6K Hz rising to normal hearing at 8K Hz Left Ear: Mild sensorineural hearing loss from 500 Hz - 3K Hz rising to normal hearing above 3K Hz Speech Audiometry Right SRT = 35 dB and word discrimination score at 55 dBHL = 100% Left SRT = 35 dB and word discrimination score at 55 dBHL = 100% Tympanometry Right Ear: Type A tympanogram Left Ear: Type A tympanogram Hearing Aid Discussion: Pt's hearing loss is mild but pt still has difficulty hearing her co-workers. She also has difficulty hearing in noise. Pt likes JOSEE style aids in deep brown and needs 2S employee relation manager wires. Pt is interested in mid level technology to better help her hear in noisy environments. She is aware [employer] only covers basic technology and she would owe $900 at the fitting. Pt thinks she will be able to use her flex spending to pay for the aids. Will submit hearing aid recommendations to [facility]. documented in this encounterCooper County Memorial [id number] Evaluation note* Encounter Date Diagnosis Assessment Notes Treatment Notes Treatment Clinical Notes Mar, COVID-19 (ICD-10 - U07.1) COVID symptoms improving. No new needs voiced. Return to work next week. ER if symptoms worsen. [employer] Other 09-13-2023 Evaluation note* Encounter Date Diagnosis Assessment Notes Treatment Notes Treatment Clinical Notes Mar, COVID-19 (ICD-10 - U07.1) [employer] Other 01-19-2023 Evaluation note* Encounter Date Diagnosis Assessment Notes Treatment Notes Treatment Clinical Notes Jul, Bilateral otitis media with effusion (ICD-10 - H65.93) Start different antibiotic, continues to have problems while on meds. Jul, Moderate persistent asthma with acute exacerbation (ICD-10 - J45.41) Symptoms worsened. 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 [employer] Other Evaluation noteNo [employer] Other Evaluation noteNo assessment information available [facility] Work Phone: Evaluation note* Diagnosis Onset Date Resolution Status Asthmatic bronchitis with acute exacerbation acute [facility] Work Phone: Evaluation note* Diagnosis Onset Date Resolution Status Asthmatic bronchitis with acute exacerbation acute Colon cancer screening acute Family history of breast cancer acute Screening mammogram for breast cancer acute Wellness examination acute Cellulitis noneactive [facility] Work Phone: Evaluation note* Diagnosis Onset Date Resolution Status Asthmatic bronchitis with acute exacerbation acute Colon cancer screening acute Family history of breast cancer acute Screening mammogram for breast cancer acute Wellness examination acute Cellulitis noneactive Insect bite of leg acute [facility] Work Phone: Evaluation note* Diagnosis Sensorineural hearing loss (SNHL) of both ears- Primary [facility] Diagnosis Sensorineural hearing loss (SNHL) of both ears- Primary [facility] Diagnosis Sensorineural hearing loss (SNHL) of both ears- Primary documented in this encounter [facility] HealthcareHistory general Narrative - Reported* Type Description Date Medical History high cholesterol Medical History depression Medical History high blood pressure Medical History asthma Surgical History bilateral carpal tunnel release Surgical History hysterectomy Surgical History carpal tunnel release Surgical History hysterectomy Surgical History colonoscopy Surgical History sinus surgery Surgical History sinus surgery Hospitalization History see surgical history Hospitalization History childbirth [facility] [facility] Other Hospital Discharge instructionsAmbulatory Orders* Referral to Gastroenterology Location: None [facility] Work Phone: Rehzui for referral (narrative)No reason for referral information availableTr[facility] Work Phone: Resbbl for visit Narrative* Consultation (Routine) - Closed Specialty Diagnoses / Procedures Referred By Jamie crow Referred To Contact Audiology Diagnoses Sensorineural hearing loss, bilateral Procedures [facility] [address] [place] [address] Phone: tel: fax: [facility] [address] [place] [address] Phone: tel: fax: Referral ID Status Reason Start Date Expiration Date Visits Re quested Visits Authorized [id number] Closed 04/18/2024 06/17/2024 1 1 [facility] Summary Purpose Family History No Family History Records Found Relationship Condition Age at Onset Recorded Date/T linda father Unknown Advance Directives No Advanced Directives Records Found Advance Directive Response Recorded Date/ Time Advance Directives Yes August 10:09am Advance Directive Response Recorded Date/ Time Advance Directives Yes August 9:09am Chief Complaint and Reason for Visit Chief Complaint possible bronchitis Chief Complaint possible bronchitis wellness Reason for Visit Asthmatic bronchitis with acute exacerbation Chief Complaint possible bronchitis wellness poss wound infection, left knee Reason for Visit Asthmatic bronchitis with acute exacerbation Colon cancer screening Family history of breast cancer Screening mammogram for breast cancer Wellness examination Cellulitis Chief Complaint possible bronchitis wellness poss wound infection, left knee Ankle Bite Reason for Visit Asthmatic bronchitis with acute exacerbation Colon cancer screening Family history of breast cancer Screening mammogram for breast cancer Wellness examination Cellulitis Insect bite of leg Chief Complaint Admit Date July 03, 2024 4:51pm NEW L KNEE PAIN NX July 20, 2024 7: 33am M25.562 - Pain in left knee July 20, 2024 7:59am Reason for Visit Admit Date Adult body mass index 40 and over 2024 7:33am Primary osteoarthritis of left knee Augustus 2024 7:33am Chief Complaint Admit Date July 18, 2024 12:00pm NEW L KNEE PAIN NX July 20, 2024 7: 33am M25.562 - Pain in left knee July 20, 2024 7:59am RECHECK LT KNEE PAIN August 01, 2024 8:49am M17.12 - Unilateral primary osteoarthrit is, left k August 01, 2024 8:53am Reason for Visit Admit Date Adult body mass index 40 and over Juluar 2024 7:33am Primary osteoarthritis of left knee Augustus 2024 7:33am Primary osteoarthritis of left knee Augustus jace2024 8:49am Chief Complaint Admit Date NEW L KNEE PAIN NX July 20, 2024 7: 33am M25.562 - Pain in left knee July 20, 2024 7:59am RECHECK LT KNEE PAIN August 01, 2024 8:49am M17.12 - Unilateral primary osteoarthrit is, left k August 01, 2024 8:53am BH August 07, 2024 4 :52pm med refill, left knee August 30 9:41am Reason for Visit Admit Date Adult body mass index 40 and over 2024 7:33am Primary osteoarthritis of left knee Augustus 2024 7:33am Primary osteoarthritis of left knee Augustus jace 2024 8:49am Left knee pain August 30, 2024 9:41am Primary osteoarthritis of left knee 2024 9:41am Chief Complaint Admit Date NEW L KNEE PAIN NX July 20, 2024 7: 33am M25.562 - Pain in left knee July 20, 2024 7:59am RECHECK LT KNEE PAIN August 01, 2024 8:49am M17.12 - Unilateral primary osteoarthrit is, left k August 01, 2024 8:53am med refill, left knee August 30 9:41am BH September 11, 2024 5:00am high bp, lt arm pain September 13, 2024 12:35pm Reason for Visit Admit Date Adult body mass index 40 and over 2024 7:33am Primary osteoarthritis of left knee Augustus 2024 7:33am Primary osteoarthritis of left knee Augustus jace 2024 8:49am Asthma August 30, 2024 9:41am Gastro-esophageal reflux disease without esophagitis August 30, 2024 9:41am Left knee pain August 30, 2024 9:41am Primary osteoarthritis of left knee Febr 2024 9:41am Chief Complaint Admit Date NEW L KNEE PAIN NX July 20, 2024 7: 33am M25.562 - Pain in left knee July 20, 2024 7:59am RECHECK LT KNEE PAIN August 01, 2024 8:49am M17.12 - Unilateral primary osteoarthrit is, left k August 01, 2024 8:53am med refill, left knee August 30 9:41am BH September 11, 2024 5:00am high bp, lt arm pain September 13, 2024 12:35pm Amb Documentation September 14, 2024 10:55am TBH: palpitations/high BP September 20 9:18am Chief Complaint Admit Date UTI/Yeast Infection March 02, 2025 1: 13pm Reason for Visit Admit Date UTI (urinary tract infection) February 1:13pm Chief Complaint Admit Date UTI/Yeast Infection March 02, 2025 1: 13pm R30. March 02, 2025 1: 30pm Wellness/Pillars March 05, 2025 8: 23am Reason for Visit Admit Date UTI (urinary tract infection) February 1:13pm Adult BMI 45.0-49.9 kg/sq m March 05, 2025 8:23am Colon cancer screening March 05, 2025 8:23am Gastro-esophageal reflux disease without esophagitis March 05, 2025 8:23am Obesity, class 3 March 05, 2025 8: 23am Screening mammogram for breast cancer [facility] 2024 8:23am Wellness examination March 05, 2025 8 :23am Additional Source Comments INFORMATION SOURCE (unrecogn ized section and content) DATE CREATED AUTHOR 02/19/2022 [facility] DATE CREATED AUTHOR AUTHOR'S ORGANIZ ATION 02/02/2025 [facility] EPIC DATE CREATED AUTHOR AUTHOR'S ORGANIZ ATION 03/05/2025 [facility] REASON FOR VISIT (unrecogniz ed section and content) URI symptomsSick-COVID Negat iveprescription refillNo InformationREFILLCOVID [phone] COVID + Care Teams (unrecognized sec tion and content) Team Status: Active Member Role Status Dates Hiwot Fisher MD Primary Care Provider Active Team Status: Inactive Member Role Status Dates Hiwot Fisher MD Primary Care Provider Active Start: July 20, 2024 End: July 20, 2024 Trung Porras II, MD Attending Provider Active Start: July 20, 2024 End: July 20, 2024 Team Status: Inactive Member Role Status Dates Hiwot Fisher MD Primary Care Provider Active Start: August 01, 2024 End: August 01, 2024 Trung Porras II, MD Attending Provider Active Start: August 01, 2024 End: August 01, 2024 Team Status: Active Member Role Status Dates Hiwot Fisher MD Primary Care Provider Active Start: August 07, 2024 Anatoliy Soto MD Attending Provider Active Start: August 07, 2024 Team Status: Inactive Member Role Status Dates Hiwot Fisher MD Primary Care Provide r, Attending Provider Active Start: August 30, 2024 End: August 30, 2024 Team Status: Active Member Role Status [...] 2024 Team Status: Inactive Member Role Status Jose Fisher MD Primary Care Provide r, Attending Provider Active Start: February 23, 2024 End: February 23, 2024 Team Status: Inactive Member Role Status Dates Hiwot Fisher MD Primary Care Provider Active Start: February 28, 2024 End: February 28, 2024 Va Swan APRN Attending Provider Active Sta rt: February 28, 2024 End: February 28, 2024 Team Status: Active Member Role Status Jose Fisher MD Primary Care Provide r, Attending Provider Active Start: March 03, 2024 Team Status: Inactive Member Role Status Jose Fisher MD Primary Care Provide r, Attending Provider Active Start: March 27, 2024 End: March 27, 2024 Team Status: Active Member Role Status Jose Fisher MD Primary Care Provider Active Start: July 03, 2024 Anatoliy Soto MD Attending Provider Active Start: July 03, 2024 Team Status: Active Member Role Status Jose Fisher MD Primary Care Provider Active Start: July 20, 2024 Trung Porras II, MD Attending Provider Active Start: July 20, 2024 Team Status: Active Member Role Status Dates Hiwot Fisher MD Primary Care Provider Active Start: July 18, 2024 Anatoliy Soto MD Attending Provider Active Start: July 18, 2024 Team Status: Active Member Role Status Dates Hiwot Fisher MD Primary Care Provider Active Start: August 01, 2024 Trung Porras II, MD Attending Provider Active Start: August 01, 2024 Robotics Software Engineer Relationship Specialty Start Date End Date Hiwot Fisher MD [address] [facility] [place] [address] PCP - General Family Medicine 09/06/24 Team Status: Active Member Role Status Dates Hiwot Fisher MD Primary Care Provider Active Start: September 11, 2024 Anatoliy Soto MD Attending Provider Active Start: September 11, 2024 Team Status: Inactive Member Role Status Dates Hiwot Fisher MD Primary Care Provider Active Start: September 13, 2024 End: September 13, 2024 Conrado Franklin DO Emergency Provider Active St art: September 13, 2024 End: September 13, 2024 Robotics Software Engineer Relationship Specialty Start Date End Date Hiwot Fisher MD [address] [facility] [place] [phone] PCP - General Family Medicine 09/06/24 Team Status: Active Member Role Status Dates Hiwot Fisher MD Primary Care Provider Active Start: September 14, 2024 Mikki Campoverde CMA Attending Provider Active Start: September 14, 2024 Team Status: Inactive Member Role Status Dates Hiwot Fisher MD Primary Care Provide r, Attending Provider Active Start: September 20, 2024 End: September 20, 2024 Robotics Software Engineer Relationship Specialty Start Date End Date Hiwot Fisher MD [address] [facility] [place] [id number] PCP - General Family Medicine 01/18/25 Team Status: Inactive Member Role Status Dates Hiwot Fisher MD Primary Care Provider Active Start: March 02, 2025 End: March 02, 2025 Reece Nails APRN Attending Provider Active Start: March 02, 2025 End: March 02, 2025 Team Status: Inactive Member Role Status Dates Reece Nails APRN Attending Provider Active Start: March 02, 2025 End: March 02, 2025 Team Status: Inactive Member Role Status Dates Hiwot Fisher MD Primary Care Provider Active Start: March 05, 2025 End: March 05, 2025 Hiwot Fisher MD Attending Provider Active St art: March 05, 2025 End: March 05, 2025 Goals (unrecognized section and content) Goals may [...] BE BASED ON THE PRIMARY CLINICAL RECORDS. [employer] provides no warranty or guarantee of the accuracy or completeness of information in this document.
--- NOTE | 2025-03-09 07:31 | MM_ITS ---
Patient Name: ADRIAN FRANCES MR#: [id number] : 1965 Exam Date: 03/09/2025 Ordering Doctor: DR AME FISHER M.D. RADIOLOGY REPORT PROCEDURE: MM TOMOSYNTHESIS SCREENING BI COMPARISON: MM TOMOSYNTHESIS SCREENING BI, 03/03/2024. MM TOMOSYNTHESIS SCREENING BI, 02/24/2023. MG MAMM SCREEN 3D STEPHY CAD, 01/21/2022. MG MAMM STEPHY SCRN W CAD DIG, 11/23/2013. INDICATIONS: encounter for screening mammogram for malignant neoplasm Calculator Name NCI Breast Cancer Risk Assessment Tool 5 Year Breast Cancer Risk 3.50% Lifetime Breast Cancer Risk 18.90% Personal Breast Cancer No Personal Ovarian Cancer No Treatments None Family Cancers Mother with breast cancer at age 64; Grandmother-maternal with breast cancer at age ~60; Grandfather-paternal with lung cancer at age ~65. LOCATION: [facility] BREAST COMPOSITION: The breasts are almost entirely fatty. FINDINGS: RIGHT BREAST: No significant suspicious finding. LEFT BREAST: No significant suspicious finding. DIAGNOSTIC CATEGORY 1--NEGATIVE. RECOMMENDATIONS: ROUTINE MAMMOGRAM AND CLINICAL EVALUATION IN 12 MONTHS. Dictated by: Deepak Josue MD on 03/09/2025 at 10:06 Approved by: Deepak Josue MD on 03/09/2025 at 10:10
== END 2025-03-09 06:47 | disposition home or self-care (01) ==
LOC: MAMMO 06:47
PROVIDERS: PCP Family Medicine; Visit Provider Family Medicine
DX: Z12.31 Encounter for screening mammogram for malignant neoplasm of breast (principal); Z80.3 Family history of malignant neoplasm of breast; Z80.1 Family history of malignant neoplasm of trachea, bronchus and lung
CPT/HCPCS: 77063; 77067